=== PATIENT | male | born 1955 | race Caucasian/White ===

== ENCOUNTER 2022-12-02 08:16 | Outpatient (REF) | payer OTHER, MEDICARE, SELFPAY | END 2022-12-02 08:17 | disposition home or self-care (01) | LOC: HO.HOSX 08:16 | PROVIDERS: Visit Provider Orthopaedic Surgery | DX: M17.0 Bilateral primary osteoarthritis of knee (principal) | CPT/HCPCS: 20610; 73562; J3301 ==

== ENCOUNTER 2022-12-02 13:52 | Outpatient (AMB) | payer OTHER, MEDICARE, SELFPAY ==
--- NOTE | 2022-12-02 13:57 | MHC.OFFVIS ---
Intake Vital Signs 12/02/22 14:06 Height 5 ft 9 in Weight 210 lb BMI 31.0 Intake Visit Reasons: B[employer]ER-B/L knee pain/Cortisone injection? Intake Note: Bogdan is a 67 yr old male presents today for a new patient visit to re- establish care with Dr. Jefferson for bilateral knee pain. Patient describes his pains as sharp in nature. He has taken Tylenol which gives him only mild relief. He is not able to take anti-inflammatory medicines because he is on Eliquis. He has done physical therapy which aggravated his pains. He has had injections in the past which gave him fairly good relief. He would like to hold off on surgery for as long as possible. Allergies No Known Allergies Allergy (Verified 12/02/22 14:07) Medication List - Last Reconciled 12/02/22 by Brad Jefferson MD apixaban (Eliquis) 2.5 mg PO BID carvedilol 3.125 mg PO Q12H dulaglutide (Trulicity) 0.75 mg subcut QWEEK fluticasone furoate 27.5 mcg/actuation (Flonase Sensimist) 1 spray intranasal DAILY pregabalin (Lyrica) 25 mg PO DAILY rosuvastatin (Crestor) 5 mg PO DAILY sacubitril-valsartan 24-26 mg (Entresto) 1 tab PO BID tamsulosin (Flomax) 0.4 mg PO BEDTIME venlafaxine 12.5 mg PO DAILY zolpidem mg PO PFSH Social History (Updated 12/02/22 @ 14:08 by Neha Campbell [facility]) Current occupational status: retired and disabled Current occupation: rt hand Physical Exam Vital Signs: BMI result Body Mass Index 31.0 Const Other: Well-nourished well-developed very friendly male awake alert and oriented x3 in no acute distress Extrem Other: Bilateral lower extremity examination shows good capillary refill, no skin lesions noted, normal sensation light touch Bilateral knee examination shows minimal effusions, palpable crepitus with range of motion, pain with range of motion, range of motion from full extension to 120 degrees of flexion, no instability Office Procedures Joint Injection/Drain Joint Injection/Drain Primary Site: right knee Prep: site was prepped using aseptic technique Injected: 40 mg of, Kenalog and 1% plain lidocaine Procedure: The patient tolerated the procedure well Coding 87942 - Large joint Procedure code (CPT) selection complete Joint Injection/Drain Joint Injection/Drain Primary Site: left knee Prep: site was prepped using aseptic technique Injected: 40 mg of, Kenalog and 1% plain lidocaine Procedure: The patient tolerated the procedure well Coding 34621 - Large joint Procedure code (CPT) selection complete Results Reviewed Results Reviewed: 12/02/22 14:09 Lidocaine HCl 2 % MPF [Xylocaine 2 % MPF] 5 ml .ROUTE .STK-MED ONE Triamcinolone Acetonide [Kenalog-40] 40 mg .ROUTE .STK-MED ONE X-rays of the patient's bilateral knee show joint space narrowing, subchondral sclerosis, no acute bony abnormalities Assessment & Plan Assessment & Plan (1) Arthritis of left knee: Code(s): M17.12 - Unilateral primary osteoarthritis, left knee Plan: Mr. Curtis presents with bilateral knee pains due to degenerative joint disease. I had a lengthy discussion with the patient regarding the treatment options. The patient wishes to hold off on surgery for as long as possible. I agree with this plan. The risks and benefits of bilateral knee cortisone injections were discussed at length with the patient. The patient wished to proceed. He tolerated the injections well. He will continue with his home exercise program. He will follow up with me on an as-needed basis should his symptoms not plateau at an unacceptable level over the next few months. Feel free to call me at any time should questions regarding his orthopedic management arise. I spent 22 minutes in reviewing the patient's records and imaging studies, seeing the patient and documenting in the medical record. (2) Arthritis of right knee: Code(s): M17.11 - Unilateral primary osteoarthritis, right knee Orders: Orders XR knee LT 3V Today M25.562 - Pain in left knee AMB Joint Injection/Aspiration Today M17.12 - Unilateral primary osteoarthritis, left knee AMB Joint Injection/Aspiration Today M17.11 - Unilateral primary osteoarthritis, right knee XR knee RT 3V Today M25.561 - Pain in right knee Coding Level of Care Code Est Pt Level 2 (37290) Diagnoses Arthritis of left knee M17.12 Arthritis of right knee M17.11 CPT Codes Coding - 26073 Large joint: 00326 - Large joint ([id number]) Coding - 86930 Large joint: 61719 - Large joint ([id number])
[2022-12-02 14:06] VITALS: BMI 31.0
== END 2022-12-02 14:29 | disposition home or self-care (01) ==
PROVIDERS: PCP Internal Medicine; Visit Provider Orthopaedic Surgery
DX: M17.0 Bilateral primary osteoarthritis of knee (principal)
CPT/HCPCS: 20610; 99204; 99214

== ENCOUNTER 2023-04-05 13:50 | Outpatient (AMB) | payer OTHER, MEDICARE, SELFPAY ==
--- NOTE | 2023-04-05 13:51 | MHC.OFFVIS ---
Intake Vital Signs 04/05/23 13:52 Height 5 ft 9 in Weight 210 lb BMI 31.0 Intake Visit Reasons: OV-B/L knee pain Inj 12/02/22 Intake Note: Bogdan is a 67 year old male who presents for a follow up for bilateral knee pain. Patient reports his last injections on 12/02/2022 helped and would like to repeat the injections. He describes his pains as sharp in nature. He has tried Tylenol and anti-inflammatory medicines which gave him minimal relief. He denies any fevers or chills. He denies any locking or giving way. He would like to hold off on surgery for as long as possible. Allergies No Known Allergies Allergy (Verified 04/05/23 13:55) Medication List - Last Reconciled 04/06/23 by Brad Jefferson MD apixaban (Eliquis) 2.5 mg PO BID carvedilol 3.125 mg PO Q12H dulaglutide (Trulicity) 0.75 mg subcut QWEEK fluticasone furoate 27.5 mcg/actuation (Flonase Sensimist) 1 spray intranasal DAILY pregabalin (Lyrica) 25 mg PO DAILY rosuvastatin (Crestor) 5 mg PO DAILY sacubitril-valsartan 24-26 mg (Entresto) 1 tab PO BID tamsulosin (Flomax) 0.4 mg PO BEDTIME venlafaxine 12.5 mg PO DAILY zolpidem mg PO PFSH Social History (Updated 04/05/23 @ 13:55 by Misti Montemayor CMA) Patient Tobacco Use Status: Never used Tobacco Current occupational status: retired and disabled Current occupation: rt hand Physical Exam Vital Signs: BMI result Body Mass Index 31.0 Const Other: Well-nourished well-developed very friendly male awake alert and oriented x3 in no acute distress Extrem Other: Bilateral lower extremity examination shows good capillary refill, no skin lesions noted, normal sensation light touch Bilateral knee examination shows minimal effusions, palpable crepitus with range of motion, pain with range of motion, no instability Office Procedures Joint Injection/Drain Joint Injection/Drain Primary Site: left knee Prep: site was prepped using aseptic technique Injected: 40 mg of, DepoMedrol and 1% plain lidocaine Coding 61740 - Large joint Procedure code (CPT) selection complete Joint Injection/Drain Joint Injection/Drain Primary Site: right knee Prep: site was prepped using aseptic technique Injected: 40 mg of, DepoMedrol and 1% plain lidocaine Procedure: The patient tolerated the procedure well Coding 39122 - Large joint Procedure code (CPT) selection complete Results Reviewed Results Reviewed: X-rays of the patient's bilateral knee show joint space narrowing, subchondral sclerosis, no acute bony abnormalities Assessment & Plan Assessment & Plan (1) Arthritis of left knee: Code(s): M17.12 - Unilateral primary osteoarthritis, left knee (2) Arthritis of right knee: Code(s): M17.11 - Unilateral primary osteoarthritis, right knee Plan Mr. Curtis presents with bilateral knee pains due to degenerative joint disease. I had a lengthy discussion with the patient regarding the treatment options. The patient wishes to hold off on surgery for as long as possible. I agree with this plan. The risks and benefits of bilateral knee cortisone injections were discussed at length with the patient. The patient wished to proceed. He tolerated the injections well. He will continue with his home exercise program. He will follow up with me on an as-needed basis should his symptoms not plateau at an unacceptable level over the next few months. Feel free to call me at any time should questions regarding his orthopedic management arise. I spent 22 minutes in reviewing the patient's records and imaging studies, seeing the patient and documenting in the medical record. Orders: Orders AMB Joint Injection/Aspiration 04/05/23 M17.12 - Unilateral primary osteoarthritis, left knee AMB Joint Injection/Aspiration 04/05/23 M17.11 - Unilateral primary osteoarthritis, right knee Coding Level of Care Code Est Pt Level 2 (44920) Diagnoses Arthritis of left knee M17.12 Arthritis of right knee M17.11 CPT Codes Coding - 09393 Large joint: 62346 - Large joint ([id number]) Coding - 10744 Large joint: 71060 - Large joint ([id number])
[2023-04-05 13:52] VITALS: BMI 31.0
== END 2023-04-05 14:34 | disposition home or self-care (01) ==
PROVIDERS: PCP Internal Medicine; Visit Provider Orthopaedic Surgery
DX: M17.0 Bilateral primary osteoarthritis of knee (principal)
CPT/HCPCS: 20610; 99213

== ENCOUNTER → 2023-04-05 13:50 | Outpatient (BNVA) | payer OTHER, MEDICARE, SELFPAY | PROVIDERS: PCP Internal Medicine; Visit Provider Orthopaedic Surgery | DX: M17.0 Bilateral primary osteoarthritis of knee (principal) | CPT/HCPCS: 20610; J1020 ==

== ENCOUNTER 2023-08-04 14:16 | Outpatient (AMB) | payer OTHER, MEDICARE, SELFPAY ==
--- NOTE | 2023-08-04 14:20 | A.OFFVIS_ITS ---
Intake Visit Reasons: OV-B/L knee pain Inj 04/05/23 Intake Note: Bogdan 68 yr old male presents today with complaints of bilateral knee pains. He describes his pains as sharp in nature. He has tried physical therapy exercises which aggravated his pain. He has also tried Tylenol which gives him mild relief. He is not able to take anti-inflammatory medicines because he is on Eliquis. He has had cortisone injections in the past which gave him fairly good relief. He wishes to hold off on surgery if at all possible. Allergies No Known Allergies Allergy (Verified 08/04/23 14:21) Medication List - Last Reconciled 08/05/23 by Brad Jefferson MD apixaban (Eliquis) 2.5 mg PO BID carvedilol 3.125 mg PO Q12H dapagliflozin propanediol (Farxiga) 10 mg PO DAILY fluticasone furoate 27.5 mcg/actuation (Flonase Sensimist) 1 spray intranasal DAILY metformin ER 750 mg PO DAILY pentoxifylline ER 400 mg PO BID pregabalin (Lyrica) 25 mg PO DAILY rosuvastatin (Crestor) 5 mg PO DAILY sacubitril-valsartan 24-26 mg (Entresto) 1 tab PO BID tamsulosin (Flomax) 0.4 mg PO BEDTIME testosterone 81 mg topical QAM venlafaxine 12.5 mg PO DAILY zolpidem mg PO PFSH Social History (Updated 04/05/23 @ 13:55 by Misti Montemayor CMA) Patient Tobacco Use Status: Never used Tobacco Current occupational status: retired and disabled Current occupation: rt hand Physical Exam Const Other: Well-nourished well-developed very friendly male awake alert and oriented x3 in no acute distress Extrem Other: Bilateral lower extremity examination shows good capillary refill, no skin lesions noted, normal sensation light touch Bilateral knee examination shows minimal effusions, palpable crepitus with range of motion, pain with range of motion, no instability Office Procedures Joint Injection/Drain Joint Injection/Drain Primary Site: right knee Prep: site was prepped using aseptic technique Injected: 40 mg of, DepoMedrol and 1% plain lidocaine Procedure: The patient tolerated the procedure well Coding 23213 - Large joint Procedure code (CPT) selection complete Joint Injection/Drain Joint Injection/Drain Primary Site: left knee Prep: site was prepped using aseptic technique Injected: 40 mg of, DepoMedrol and 1% plain lidocaine Procedure: The patient tolerated the procedure well Coding 53379 - Large joint Procedure code (CPT) selection complete Results Reviewed Results Reviewed: X-rays of the patient's bilateral knee show joint space narrowing, subchondral sclerosis, no acute bony abnormalities Assessment & Plan Assessment & Plan (1) Arthritis of left knee: Code(s): M17.12 - Unilateral primary osteoarthritis, left knee Category: Medical (2) Arthritis of right knee: Code(s): M17.11 - Unilateral primary osteoarthritis, right knee Category: Medical Plan Mr. Curtis presents with bilateral knee pains due to degenerative joint disease. I had a lengthy discussion with the patient regarding the treatment options. He wishes to hold off on surgery for as long as possible. I agree with this plan. The risks and benefits of bilateral knee cortisone injections were discu ssed at length with the patient. The patient wished to proceed. He tolerated the injections well. He will continue with his home exercise program. He will follow up with me on an as-needed basis should his symptoms not plateau at an unacceptable level over the next few months. Feel free to call me at any time should questions regarding his orthopedic management arise. I spent 21 minutes in reviewing the patient's records and imaging studies, seeing the patient and documenting in the medical record. Orders: Orders AMB Joint Injection/Aspiration 08/04/23 M17.12 - Unilateral primary osteoarthritis, left knee AMB Joint Injection/Aspiration 08/04/23 M17.11 - Unilateral primary osteoarthritis, right knee Coding Level of Care Code Est Pt Level 3 (73257) Diagnoses Arthritis of left knee M17.12 Arthritis of right knee M17.11 CPT Codes Coding - 35307 Large joint: 09453 - Large joint ([id number]) Coding - 42132 Large joint: 90835 - Large joint ([id number])
== END 2023-08-04 14:48 | disposition home or self-care (01) ==
PROVIDERS: PCP Internal Medicine; Visit Provider Orthopaedic Surgery
DX: M17.0 Bilateral primary osteoarthritis of knee (principal)
CPT/HCPCS: 20610; 99213

== ENCOUNTER → 2023-08-04 14:16 | Outpatient (BNVA) | payer OTHER, MEDICARE, SELFPAY | PROVIDERS: PCP Internal Medicine; Visit Provider Orthopaedic Surgery | DX: M17.0 Bilateral primary osteoarthritis of knee (principal) | CPT/HCPCS: 20610; J1010 ==

== ENCOUNTER 2023-12-14 13:20 | Outpatient (AMB) | payer OTHER, MEDICARE, SELFPAY ==
[2023-12-14 13:23] VITALS: BMI 31.0
--- NOTE | 2023-12-14 13:23 | A.OFFVIS_ITS ---
Vital Signs 12/14/23 13:23 Height 5 ft 9 in Weight 210 lb BMI 31.0 Intake Visit Reasons: Bilateral knee pains Intake Note: Bogdan is a 68 year old male who presents with complaints of bilateral knee pains. The patient describes his pains as sharp in nature. His pains have gotten worse over the last few months in spite of continued non operative treatments. He has had cortisone injections which gave him fairly good relief. He has also done physical therapy exercises which aggravated his pain. He has tried Tylenol which gives him minimal relief. He is not able to take anti- inflammatory medicines because he is on Eliquis. He wishes to hold off on surgery for as long as possible. Allergies No Known Allergies Allergy (Verified 12/14/23 13:27) Medication List - Last Reconciled 12/14/23 by Brad Jefferson MD apixaban (Eliquis) 2.5 mg PO BID carvedilol 3.125 mg PO Q12H dapagliflozin propanediol (Farxiga) 10 mg PO DAILY fluticasone furoate 27.5 mcg/actuation (Flonase Sensimist) 1 spray intranasal DAILY metformin ER 750 mg PO DAILY pentoxifylline ER 400 mg PO BID pregabalin (Lyrica) 25 mg PO DAILY rosuvastatin (Crestor) 5 mg PO DAILY sacubitril-valsartan 24-26 mg (Entresto) 1 tab PO BID semaglutide (Ozempic) 0.25 mg subcut QWEEK tamsulosin (Flomax) 0.4 mg PO BEDTIME testosterone 81 mg topical QAM venlafaxine 12.5 mg PO DAILY zolpidem mg PO PFSH Social History (Updated 04/05/23 @ 13:55 by Misti Montemayor CMA) Patient Tobacco Use Status: Never used Tobacco Current occupational status: retired and disabled Current occupation: rt hand Physical Exam Vital Signs: BMI result Body Mass Index 31.0 Const Other: Well-nourished well-developed very friendly male awake alert and oriented x3 in no acute distress Extrem Other: Bilateral lower extremity examination shows good capillary refill, no skin lesions noted, normal sensation light touch Bilateral knee examination shows minimal effusions, palpable crepitus with range of motion, pain with range of motion, no instability Office Procedures Joint Injection/Aspiration Joint Injection/Aspiration Primary Site: left knee Prep: site was prepped using aseptic technique Injected: 40 mg of, DepoMedrol and 1% plain lidocaine Procedure: The patient tolerated the procedure well Coding 43571 - Large joint Procedure code (CPT) selection complete Joint Injection/Aspiration Joint Injection/Aspiration Primary Site: right knee Prep: site was prepped using aseptic technique Injected: 40 mg of, DepoMedrol and 1% plain lidocaine Procedure: The patient tolerated the procedure well Coding 76990 - Large joint Procedure code (CPT) selection complete Results Reviewed Results Reviewed: X-rays of the patient's bilateral knees taken previously show joint space narrowing, subchondral sclerosis, no acute bony abnormalities Assessment & Plan Assessment & Plan (1) Arthritis of left knee: Code(s): M17.12 - Unilateral primary osteoarthritis, left knee Category: Medical (2) Arthritis of right knee: Code(s): M17.11 - Unilateral primary osteoarthritis, right knee Category: Medical Plan Mr. Curtis presents with bilateral knee pains due to degenerative joint disease. I had a lengthy discussion with the patient regarding the treatment options. The risks and benefits of bilateral knee cortisone injections were discussed at length with the patient. The patient wished to proceed. He tolerated the injections well. He will continue with his home exercise program. He will contact me prior to his follow-up appointment in 3 months should any questions or concerns arise. Feel free to call me at any time should questions regarding his orthopedic management arise. I spent 22 minutes in reviewing the patient's records and imaging studies, seeing the patient and documenting in the medical record. Orders: Orders AMB Joint Injection/Aspiration 12/14/23 M17.11 - Unilateral primary osteoarthritis, right knee AMB Joint Injection/Aspiration 12/14/23 M17.12 - Unilateral primary osteoarthritis, left knee Coding Level of Care Code Est Pt Level 3 (41948) Complex EM visit Add On G2211 Diagnoses Arthritis of left knee M17.12 Arthritis of right knee M17.11 CPT Codes Coding - 62259 Large joint: 49190 - Large joint ([id number]) Coding - 39849 Large joint: 15747 - Large joint ([id number])
== END 2023-12-14 13:50 | disposition home or self-care (01) ==
PROVIDERS: PCP Internal Medicine; Visit Provider Orthopaedic Surgery
DX: M17.0 Bilateral primary osteoarthritis of knee (principal)
CPT/HCPCS: 20610; 99213

== ENCOUNTER → 2023-12-14 13:20 | Outpatient (BNVA) | payer OTHER, MEDICARE, SELFPAY | PROVIDERS: PCP Internal Medicine; Visit Provider Orthopaedic Surgery | DX: M17.0 Bilateral primary osteoarthritis of knee (principal) | CPT/HCPCS: 20610; J1010; J2003 ==

== ENCOUNTER 2024-04-24 12:52 | Outpatient (AMB) | payer OTHER, MEDICARE, SELFPAY ==
[2024-04-24 12:54] VITALS: BMI 31.0
--- NOTE | 2024-04-24 12:54 | MHC.OFFVIS ---
Vital Signs 04/24/24 12:54 Height 5 ft 9 in Weight 210 lb BMI 31.0 Intake Visit Reasons: right shoulder pain and right knee pain Intake Note: Bogdan is a 68 year old male who presents with complaints of right shoulder pain and right knee pain. He describes his pains as sharp in nature. His pains have gotten worse over the last few months in spite of continued non operative treatments. He has taken Tylenol which gives him only mild relief. He is not able to take anti-inflammatory medicines because he is on Eliquis. He has done physical therapy exercises which aggravated his pain. He wishes to hold off on surgery if at all possible. Allergies No Known Allergies Allergy (Verified 04/24/24 12:55) Medication List - Last Reconciled 04/25/24 by Brad Jefferson MD apixaban (Eliquis) 2.5 mg PO BID carvedilol 3.125 mg PO Q12H dapagliflozin propanediol (Farxiga) 10 mg PO DAILY fluticasone furoate 27.5 mcg/actuation (Flonase Sensimist) 1 spray intranasal DAILY metformin ER 750 mg PO DAILY pentoxifylline ER 400 mg PO BID pregabalin (Lyrica) 25 mg PO DAILY rosuvastatin (Crestor) 5 mg PO DAILY sacubitril-valsartan 24-26 mg (Entresto) 1 tab PO BID semaglutide (Ozempic) 0.25 mg subcut QWEEK tamsulosin (Flomax) 0.4 mg PO BEDTIME testosterone 81 mg topical QAM venlafaxine 12.5 mg PO DAILY zolpidem mg PO PFSH Social History (Updated 04/05/23 @ 13:55 by Misti Montemayor CMA) Patient Tobacco Use Status: Never used Tobacco Current occupational status: retired and disabled Current occupation: rt hand Physical Exam Vital Signs: BMI result Body Mass Index 31.0 Const Other: Well-nourished well-developed very friendly male awake alert and oriented x3 in no acute distress Extrem Other: right shoulder examination shows slightly decreased range of motion when compared to his left shoulder, positive impingement signs, no instability, 4+ out of 5 strength with supraspinatus testing Right knee examination shows a minimal effusion, palpable crepitus with range of motion, pain with range of motion, no instabil Office Procedures AMB Joint Injection/Aspiration Joint Injection/Aspiration Primary Site: right knee Prep: site was prepped using aseptic technique Injected: 40 mg of, DepoMedrol and 1% plain lidocaine Procedure: The patient tolerated the procedure well Coding 59259 - Large joint Procedure code (CPT) selection complete AMB Joint Injection/Aspiration Joint Injection/Aspiration Primary Site: right shoulder Prep: site was prepped using aseptic technique Injected: 40 mg of, DepoMedrol and 1% plain lidocaine Procedure: The patient tolerated the procedure well Coding 94707 - Large joint Procedure code (CPT) selection complete Assessment & Plan Assessment & Plan (1) Impingement of right shoulder: Code(s): M25.811 - Other specified joint disorders, right shoulder Category: Medical (2) Arthritis of right knee: Code(s): M17.11 - Unilateral primary osteoarthritis, right knee Category: Medical Plan Mr. Curtis presents with right shoulder pain due to impingement syndrome as well as right knee pain due to degenerative joint disease. I had a lengthy discussion with the patient regarding the treatment options. the risks and benefits of a right shoulder cortisone injection as well as a right knee cortisone injection were discussed at length with the patient. The patient wished to proceed. Tolerated the injections well. He will continue with his home exercise program. He will contact me prior to his follow-up appointment in 3 months should any questions or concerns arise. Feel free to call me at any time should questions regarding his orthopedic management arise. I spent 21 minutes in reviewing the patient's records and imaging studies, seeing the patient and documenting in the medical record. Orders: Orders AMB Joint Injection/Aspiration 04/24/24 M25.811 - Other specified joint disorders, right shoulder AMB Joint Injection/Aspiration 04/24/24 M17.11 - Unilateral primary osteoarthritis, right knee Coding Level of Care Code Est Pt Level 3 (20387) Complex EM visit Add On G2211 Diagnoses Impingement of right shoulder M25.811 Arthritis of right knee M17.11 CPT Codes Coding - 93903 Large joint: 71604 - Large joint ([id number]) Coding - 73066 Large joint: 27990 - Large joint ([id number])
--- OUTSIDE RECORDS SUMMARY | 2024-04-24 15:39 | XMS_ITS | Data Portability ---
Author Organization [place] [facility] Reyes AONE Gowen Address [address] [place] [address] Care Team Providers Care Steel Pickler Name Role Phone MERLE LORENZOEMILY Primary Care Provider [phone] Assessment Encounter Date Assessment Date Assessment LastModified by Organization Details LastModified Time 11/15/2022 11/15/2022 67-year-old male with osteoarthritis of bilateral knees. His symptoms are well controlled at present moment. He is requesting repeat cortisone injections today. I have described to him that I would only recommend repeat cortisone injections if and when he is experiencing arthritis symptoms but that there is no preventative value of cortisone injections. I sense that he is frustrated as this is a different approach than he was accustomed to in the past. I have assured him that we will make a time for him on the office schedule in the event that he has recurrence of arthritis pain. [email or web address] Not available 11/15/2022 14:07:06 Plan of Treatment Reminders Order Date Submit Date Provider Last Modified By Organization Details Last Modified Time Details Appointments None recorded. Lab None recorded. Referral None recorded. Procedures None recorded. Surgeries None recorded. Imaging XR, knee, 1 or 2 view - Left Knee Pain 2022 023 [email or web address] [facility], [address], [place], [address], 15:29:50 XR, knee, 1 or 2 view - Right Knee Pain 2022 023 [email or web address] [facility], [address], [place], [address], 3 15:29:50 XR, knee, weightbeari ng - Bilateral Knee Pain 2022 023 [email or web address] [facility], [address], [place] [address], [place], [address], 3 15:29:50 Medication Orders Marcaine (PF) 0.5 % (5 mg/mL) injection solution 2022 023 [email or web address] [id number], [address] [place], [address], 3 15:29:50 lidocaine (PF) 100 mg/5 mL (2 %) injection syringe 2022 023 [email or web address] [id number], [address] [place], [address], 3 15:29:50 Kenalog 40 mg/mL suspension for injection 2022 023 [email or web address] [id number], [address] [place], [address], 3 15:29:50 Marcaine (PF) 0.5 % (5 mg/mL) injection solution 2022 023 [email or web address] [id number], [address] [place] [address], [address], 3 15:29:50 lidocaine (PF) 100 mg/5 mL (2 %) injection syringe 2022 023 [email or web address] [id number], [address] [place] [address], [address], 3 15:29:50 Kenalog 40 mg/mL suspension for injection 2022 023 [email or web address] [id number], [address] [place], [address], 3 15:29:50 Patient TargetsNo targets recorded. Patient Instructions Encounter Date Encounter Id Patient Instructions Last Modified By Organization Details Last Modified Time 08/13/2022 [id number] AP, lateral, Dawson, and patellar view radiographs of the right knee taken today demonstrate right knee degenerative joint disease with mild to moderate joint space narrowing most significant in the medial compartment. AP, lateral, Dawson, and patellar radiographs views of the left knee taken today demonstrate left knee degenerative joint disease with mild to moderate joint space narrowing. [email or web address] Not available 08/13/2022 13:49:00 Reason for Referral None Reported. Problems Name Problem SNOMED Code Status Onset Date Resolution Date Notes Provider Name and Address Organization Details Recorded Time Osteoarthri tis of right knee joint 4149192000273 00 Active 2022 Bowen Segovia MD [address], [place], [address], [place] [facility] 3 13:48:22 Osteoarthri tis of left knee joint 2630796191941 09 Active 2022 Bowen Segovia MD [address], [place], [address], [place] [facility] 3 13:48:26 Problem Notes None recorded. Procedures Surgical History Date Name Laterality Status Provider Name and Address Organization Details Recorded Time 3 MJG Knee Injection w/o US completed Bowen Segovia MD [address], [place], [address], [place] [facility] 08/13/2022 13:49:26 Imaging Results None recorded. Procedure Notes None recorded. Medical Equipment None Reported. 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 2022 active Not Available Not Available Not Avai lable tamsulosin 0.4 mg capsule active Not Available Not Available Not Available zolpidem 10 mg tablet TAKE 1 TABLET BY MOUTH EVERY DAY AT BEDTIME NEEDED active Not Available Not Available No t Available ketoconazol e 2 % topical cream APPLY TO AFFECTED AREA TWICE A DAY active Not Available Not Available No t Available metformin ER 500 mg tablet,exte nded release 24 hr TAKE 1 TABLET BY MOUTH ONCE DAILY WITH EVENING MEAL active Not Available Not Available No t Available Vitamin D3 25 mcg (1,000 unit) tablet TAKE 1 TABLET BY MOUTH EVERY DAY FOR 90 DAYS active Not Available Not Available No t Available metformin ER 750 mg tablet,exte nded release 24 hr TAKE 1 TABLET BY MOUTH EVERY DAY FOR 90 DAYS active Not Available Not Available No t Available rosuvastati n 40 mg tablet active Not Available Not Available Not Available Marcaine (PF) 0.5 % (5 mg/mL) injection solution Take 4 mL by injection route. 2022 active Not Available Not Available Not Avai lable pregabalin 100 mg capsule active Not Available Not Available Not Available testosteron e 20.25 mg/1.25 gram per pump act.(1.62 %) transdermal gel APPLY 4 PUMPS TO AFFECTED ON SKIN IN THE MORNING ONCE A DAY active Not Available Not Available No t Available lidocaine (PF) 100 mg/5 mL (2 %) injection syringe Take 4 mL by injection route. 2022 active Not Available Not Available Not Avai lable Eliquis 5 mg tablet TAKE 1 TABLET BY MOUTH TWICE A DAY active Not Available Not Available No t Available Farxiga 10 mg tablet TAKE 1 TABLET BY MOUTH EVERY DAY active Not Available Not Available No t Available Trulicity 1.5 mg/0.5 mL subcutaneou s pen injector INJECT 1 PEN (0.5 ML) SUBCUTANE OUSLY ONCE A WEEK 90 DAYS active Not Available Not Available No t Available Trulicity 0.75 mg/0.5 mL subcutaneou s pen injector INSERT 1 PEN (0.75MG) SUBCUTANE OUSLY ONCE A WEEK DIRECTED active Not Available Not Available No t Available Entresto 97 mg-103 mg tablet TAKE 1 TABLET BY MOUTH TWICE A DAY active Not Available Not Available No t Available Paxlovid 300 mg (150 mg x 2)-100 mg tablets in a dose pack TAKE 3 TABLETS BY MOUTH FROM THERAPY PACK TWICE A DAY FOR 5 DAYS 11/15 completed Not Available Not Available Not Available Vitals Date Recorded Body weight Body mass index (BMI) Body height Provider Name and Address Organization Details Last Updated DateTime 08/13/2022 93827.77 g 32.5 kg/m2 172.72 cm Hayley Ceja [place] [facility] 08/13/2022 13:35:07 Date Recorded Body height Body mass index (BMI) Body weight Provider Name and Address Organization Details Last Updated DateTime 11/15/2022 172.72 cm 32.5 kg/m2 12102.77 g Corazon Mera [facility] 11/15/2022 13:44:59 Social History None recorded. Functional Status None recorded. Mental Status None recorded. Family History Relationship Description Onset Age of this Age Resolved Age Notes LastModified by Organization Details LastModified Time Father Family history of malignant neoplasm [email or web address] Not available 11/15 13:45:38 Medical History Condition Response Coronary Artery Disease N Gout N Hyperthyroidism N MRSA N Blood Transfusion N Emphysema N Hypothyroidism N COPD N Depression N Pacemaker N Vascular Disease N Gastrointestinal Disease N Anxiety Disorder N Autoimmune disease N Arthritis N Cancer N Stroke Y High Cholesterol N Neurologic Disorder N Liver Disease N Organ Transplant N Arrhythmia N Rheumatoid Arthritis N Fibromyalgia N Kidney Disease N Allergies/Hayfever N Adverse Reaction to Anesthesia N Thyroid Problems N Anemia N Brain Injury N Heart Attack (MN) N Osteopenia N Diabetes Y Bleeding Disorder N Seizures/Epilepsy N AIDS/HIV N Congestive Heart Failure (CHF) N Asthma N Amputation N Reflux/GERD N Sleep Apnea N Hepatitis N Aneurysm N Heart Disease Y Pulmonary Embolism N Hypertension Y Osteoporosis N Past Encounters Encounter ID Performer Location Encounter Start Date Encounter Closed Date Diagnosis/Indication Diagnosis SNOMED-CT Code Diagnosis ICD10 Code Diagnosis Note [id number] [facility] [address] [address] 08/13/2022 13:21:02 08/13/2022 13:48:26 Pain of bilateral knee joints 7571763255 34751 M25.561 M25.562 Osteoarthr itis of right knee joint 7575847377 48622 M17.11 Osteoarthr itis of left knee joint 2756803908 64904 M17.12 [id number] MD [facility] [address] [place] [address] 11/15/2022 13:37:30 11/15/2022 14:35:31 Osteoarthritis of left knee joint 7140243722 61766 M17.12 Osteoarthr itis of right knee joint 6803915576 04617 M17.11 Health Concerns Section Related Observation LastModified by Organization Detai ls LastModified Time None Recorded Concern Status LastModified by Organization Details LastModified Time None Recorded Advance Directives Directive None Recorded Payers Encounter Date Sequence Insurance Name Policy Number Policy Singh Covered Member ID Singh Member ID Guarantor Name 08/13/2022 1 [facility] [id number] Bogadn Curtis [id number] Bogdan Curtis 08/13/2022 2 MEDICARE B-[place]: [facility] [employer] [facility] Bogdan Curtis [id number] Bogdan Curtis 11/15/2022 1 [facility] [id number] Bogdan Curtis [id number] Bogdan Curtis 11/15/2022 2 [place] [employer] [facility] Bogdan Curtis [id number] Bogdan Curtis Notes Date Note Type Note Provider Name and Address Organization Details Recorded Time 08/13/2022 text/html HPI: Patient is here today with complaints of bilateral knee pain. ? ? The patient is experiencing bilateral knee pain, which is moderate in intensity, and has recently worsened. The right knee is equal to the left knee. The pain limits some activities of daily living. Walking tolerance is reduced. Pain and restriction of function are moderate at this time. He has been undergoing corticosteroid injections with Dr. Jefferson. The last one is in April. It brought about 3 months of relief. Review of systems is negative for other rapidly progressive neurological disorder, chest pain, shortness of breath, fevers, chills, or any signs of active or persistent local or systemic infection. Physical Exam??: Patient is well nourished, well-developed, in no acute distress, with appropriate mood and affect. The patient is oriented to time, place, and person. Bilateral knee motion is reduced and does cause significant pain. The right knee moves from 0-130 degrees and the left knee moves from 0-130 degrees. The knees are stable within those [id number]. The alignment of the right knee is {{varus valgus neutr al*}}. The alignment of the left knee is {{varus valgus neutr al*}}. Knee muscle strength is normal bilaterally with the skin intact. Pedal pulses are palpable. Hip examination, including flexion and internal rotation, was negative in that groin pain was not produced. Assessment/Plan??: The patient has mild to moderate bilateral knee arthritis. An extensive discussion was conducted on the natural history of the disease and the variety of surgical and non-surgical options available to the patient including, but not limited to non-steroidal anti-inflammatory medications, steroid injections, viscosupplementation , physical therapy, maintenance of ideal body weight, and reduction of activity. Plan for bilateral knee corticosteroid injections today. He can follow-up with JANIE Martínez in about 3 months. Hayley singleton, [place] [facility] 08/13/2022 13:57:49 11/15/2022 text/html 67-year-old male presents for routine surveillance of bilateral knee secondary to known osteoarthritis. He reports that his most recent cortisone injections were effective at giving him excellent relief of his pain. He is currently still pain-free and his overall level of function specific to the knees is very high. He does recognize some weakness of the knees. He is offered a physical therapy order but declines. JANIE MARTÍNEZ-Cherrie [address] [place] [address], [phone], [place] [facility] 11/15/2022 14:07:44
--- OUTSIDE RECORDS SUMMARY | 2024-04-24 15:39 | XMS_ITS ---
Author Name [facility] Organization Unknown History of Medication Use Medication Directions Dispensed Refills Start Date End Date Stat tamsulosin 0.4 mg capsule active rosuvastatin 40 mg tablet active Vitamin D3 25 mcg (1,000 unit) tablet TAKE 1 TABLET BY MOUTH EVERY DAY FOR 90 DAYS active Trulicity 1.5 mg/0.5 mL subcutaneous pen injector INJECT 1 PEN (0.5 ML) SUBCUTANEOUSLY ONCE A WEEK 90 DAYS active Farxiga 10 mg tablet TAKE 1 TABLET BY MOUTH EVERY DAY active testosterone 20.25 mg/1.25 gram per pump act.(1.62 %) transdermal gel APPLY 4 PUMPS TO AFFECTED ON SKIN IN THE MORNING ONCE A DAY active lidocaine (PF) 100 mg/5 mL (2 %) injection syringe Take 4 mL by injection route. 08/13/2022 active Trulicity 0.75 mg/0.5 mL subcutaneous pen injector INSERT 1 PEN (0.75MG) SUBCUTANEOUSLY ONCE A WEEK DIRECTED active zolpidem 10 mg tablet TAKE 1 TABLET BY MOUTH EVERY DAY AT BEDTIME NEEDED active Problems Problem Status Onset Date Problem Type Date of Resoluti on Source Osteoarthritis of right knee joint active 2022-08-13 ProblemAct [facility] Osteoarthritis of left knee joint active 2022-08-13 ProblemAct [facility]
--- OUTSIDE RECORDS SUMMARY | 2024-04-24 15:40 | XMS_ITS ---
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 Name Role Phone Shana Gould Primary Care Provider [phone] Edwige Chilel Unavailable [phone] Allergies No Known Allergies REASON FOR VISIT New Refill Request Medications Medication SIG (Take, Route, Fr equency, Duration) Notes Start Date End Date Status Pregabalin 100 MG TAKE 1 CAPSULE BY MO UT TWICE DAILY Orally twice a day for 14 days 04/23/2024 05/07/2024 Active Encounters Encounter Location Date Provider Diagnosis Shana Gould MD [address] [place] [phone] 04/20/2024 Edwige Chilel Plan Of Treatment Medication Medication Name Sig Start Date Stop Date Notes Pregabalin 100 MG TAKE 1 CAPSULE BY MO UT TWICE DAILY Orally twice a day for 14 days 04/23/2024 05/07/2024 Next Appt Details Provider Name:Shana Gould , 08/08/2024 01:00:00 PM, [address] [place] [address], [phone], Provider Name:Shana Gould , 10/18/2024 01:00:00 PM, [address] [place] [address], [phone], Progress Notes * Bogdan LIZAMA ADOB: (68 yo M)Acc No.[id number]:04/20/2024 Patient:?Bogdan LIZAMA :1955???Age:68 Y???Sex:Male Address:[address] [place] [address], [facility] [place], [address] * Refills? Refill Pregabalin Capsule, 100 MG, Orally, 28, TAKE 1 CAPSULE BY MOUTH TWICE DAILY, twice a day, 14 days, Refills=0 Subjective: * Chief Complaints: * ???New Refill Request * Medical History:? * Surgical History:? * Hospitalization/Major Diagno stic Procedure:? * Medications:? * Allergies:?N.K.D.A.no[Allerg ies Verified] Objective: * Vitals:? Past Vitals:* 04/09/2024 Temp:95.2F, HR:94/min, BP:Si tting Right Arm: 116/66mm Hg, Wt:202lbs, BMI:28.98Index, Ht:70in, Oxygen sat %:96% * 12/21/2023 Temp:96.3F, BP:Sitting Right Arm: 118/70mm Hg, Wt:206.2lbs, BMI:29.58Index, Ht:70in * 10/11/2023 Temp:95.9F, HR:75/min, BP:Si tting Right Arm: 122/70mm Hg, Wt:213.8lbs, BMI:30.67Index, Ht:70in, Oxygen sat %:97% * Physical Examination:? Assessment: Plan: * Treatment: * Procedure Codes:? * true * Date:? Generated for Gita nixon/[place]/Rod on:?04/24/2024 03:39 PM EST
--- OUTSIDE RECORDS SUMMARY | 2024-04-24 15:40 | XMS_ITS ---
Author Organization [facility] Address [address] [place] [phone] Care Team Providers Care Client Service Consultant Name Role Phone Shana Gould Primary Care Provider Edwige Chilel Unavailable [phone] REASON FOR VISIT need refill for Imodium 2 Mg Capsule for [facility] Medications Medication SIG (Take, Route, Fr equency, Duration) Notes Start Date End Date Status Imodium A-D 2 MG 1 tablet as needed O rally two times a day for 14 days Active Encounters Encounter Location Date Provider Diagnosis Shana Gould MD [address] [place] [phone] 04/20/2024 Edwige Chilel Plan Of Treatment Medication Medication Name Sig Start Date Stop Date Notes Imodium A-D 2 MG 1 tablet as needed O rally two times a day for 14 days Next Appt Details Provider Name:Shana Gould , 08/08/2024 01:00:00 PM, [address] [place] [address], [phone], Provider Name:Shana Gould , 10/18/2024 01:00:00 PM, [address] [place] [address], [phone], Progress Notes * Bogdan LIZAMA ADOB: (68 yo M)Acc No.[id number]:04/20/2024 Patient:?Bogdan LIZAMA :1955???Age:68 Y???Sex:Male Address:[address] [place] [address], [address] * Refills? Refill Imodium A-D Tablet, 2 MG, Orally, 28 Tablet, 1 tablet as needed, two times a day, 14 days, Refills=0 Subjective: * Chief Complaints: * ???need refill for Imodium 2 Mg Capsule for [facility] * Medical History:? * Surgical History:? * Hospitalization/Major Diagno stic Procedure:? * Medications:? * Allergies:?no[Allergies Veri fied] Objective: * Vitals:? Past Vitals:* 04/09/2024 Temp:95.2F, [...] * Date:? Generated for Gita nixon/[place]/Rod on:?04/24/2024 03:40 PM EST
--- OUTSIDE RECORDS SUMMARY | 2024-04-24 15:40 | XMS_ITS | Clinical Summary ---
Author Organization [facility] Address [address] [place] [address] Care Team Providers Care Vp Human Resources Name Role Phone Shana Gould MD Primary Care Provider [phone] Allergies No known active allergies Medications Medication Sig Dispensed Refills Start Date End Date Status tamsulosin (FLOMAX) 0.4 MG CAPS Take 0.4 mg by mouth daily. 0 Active isosorbide mononitrate (IMDUR) 30 MG 24 hr tablet Take 30 mg by mouth daily. 0 Active zolpidem (AMBIEN) 5 MG tablet Take 5 mg by mouth every night at bedtime as needed for sleep. 0 Active amiodarone (PACERONE) 200 MG tablet Take 200 mg by mouth daily. 0 Active venlafaxine (EFFEXOR) 25 MG tablet Take 25 mg by mouth 2 (two) times a day. 0 Active Testosterone (ANDROGEL) 20.25 MG/1.25GM (1.62%) GEL Place onto the skin. 0 Active carvedilol (COREG) 12.5 MG tablet Take 12.5 mg by mouth 2 (two) times a day with meals. 0 Active spironolactone (ALDACTONE) 100 MG tablet Take 100 mg by mouth daily. 0 Active fluticasone (FLONASE) 50 MCG/ACT nasal spray spray/apply 1 spray in each nostril daily. 0 Active atorvastatin (LIPITOR) tablet 20 mg Take 20 mg by mouth daily. 0 Active glimepiride (AMARYL) tablet 2 mg Take 2 mg by mouth every morning before breakfast. 0 Active furosemide (LASIX) 20 MG tablet Take 20 mg by mouth 2 (two) times a day. 0 Active pregabalin (LYRICA) capsule 100 mg Take 100 mg by mouth 2 (two) times a day. 0 Active clopidogrel (PLAVIX) 75 MG tablet Take 75 mg by mouth daily. 0 Active SITagliptin-MetFORMIN HCl (JANUMET PO) Take by mouth. 0 Acti ve METFORMIN HCL PO Take by mouth. 0 Acti ve Sacubitril-Valsartan (ENTRESTO PO) Take by mouth. 0 Active gabapentin (NEURONTIN) 300 MG capsule Take 300 mg by mouth 3 (three) times a day. 5 05/17/2017 Active pentoxifylline (TRENTAL) 400 MG CR tablet TAKE 1 TABLET BY MOUTH TWICE A DAY 1 05/03/2017 Active ENTRESTO 97-103 MG TABS per tablet TAKE 1 TABLET BY MOUTH TWICE A DAY 3 06/01/2017 Active apixaban (ELIQUIS) 5 MG TABS tablet Take 5 mg by mouth. 0 Active aspirin 81 MG chewable tablet Chew 81 mg by mouth daily. 3 10/15/2018 Active INVOKANA 300 MG TABS TAKE 1 TABLET BEFORE THE FIRST MEAL OF THE DAY ONCE A DAY ORALLY 30 DAY(S) 0 06/03/2019 Active FARXIGA 10 MG TABS Take 1 tablet by mouth daily. 0 02/25/2020 Active rosuvastatin (CRESTOR) tablet 40 mg Take 40 mg by mouth daily. 0 09/22/2020 Active testosterone (ANDROGEL) gel pump 1.62% (20.25 mg testosterone/1.25 g gel) 0 04/13/2021 Active carvedilol (COREG) 6.25 MG tablet 0 03/12/2021 Active venlafaxine (EFFEXOR-XR) 150 MG 24 hr capsule 0 01/28/2021 Active zolpidem (AMBIEN) 10 MG tablet TAKE 1 TABLET BY MOUTH AT BEDTIME NEEDED 0 03/27/2021 Active Active Problems Problem Noted Date Diagnosed Date Primary osteoarthritis of both knees 06/27/2019 Coracoid impingement of right shoulder 8 Allergic arthritis of left knee 11/15/2017 Arthralgia of left knee 10/06/2016 Arthralgia of left shoulder region 10/06/2016 Family History Medical History Relation Name Comments Cancer Mother Relation Name Status Comments Mother Social History Tobacco Use Types Packs/Day Years Used Date Smoking Tobacco: Never Assessed Sex and Gender Information Value Date Recorded Sex Assigned at Not on file Gender Identity Not on file Sexual Orientation Not on file Job Start Date Occupation Industry Not on file Not on file Not on file Last Filed Vital Signs Vital Sign Reading Time Taken Comments Blood Pressure - - Pulse - - Temperature - - Respiratory Rate - - Oxygen Saturation - - Inhaled Oxygen Concentration - - Weight 108.9 kg (240 lb) 04/14/2021 3:41 PM EST Height 177.8 cm (5' 10 ) 04/14/2021 3:41 PM EST Body Mass Index 34.44 04/14/2021 3:41 PM EST Plan of Treatment Health Maintenance Due Date Last Done Comments Hepatitis C Screening 1955 COVID-19 Vaccine (#1) 1955 Pneumococcal Vaccine (1 of 2 - PCV) 06/05/1961 Depression Screening 1967 BMI Counseling 06/05/1973 Preventative Health Evaluation 06/05/1973 DTap / Tdap / Td (1 - Tdap) 06/05/1974 Colon Cancer Screening (Colonoscopy) 06/05/2000 Shingrix-Zoster Vaccine (1 o f 2) 06/05/2005 Fall Risk Assessment 06/05/2020 Influenza Vaccine (#1) 2023 8, 12/04/2015 RSV Adult > 60+ Yrs or (1 - 1-dose 75+ series) 06/05/2030 Hepatitis B Vaccines Aged Out No long er eligible based on patient's age to complete this topic RSV Ped < 20 months Aged Out No longe r eligible based on patient's age to complete this topic Insurance Payer Benefit Plan / Group Subscriber ID Effective Dates Phone Address [facility] [id number] 2019-Pr esent [address] [place] [address] [place] [id number] 2011-Pre sent [phone] [employer] [address] [facility] [place] [address] Medicare Care Teams Vp Human Resources Relationship Specialty Start Date End Date Shana Gould MD [address] [address] PCP - General Internal Medicine 09/24/16
--- OUTSIDE RECORDS SUMMARY | 2024-04-24 15:40 | XMS_ITS | Clinical Summary ---
Author Organization [facility] [place] [address] Care Team Providers Care Property Insurance Inspector Name Role Phone Shana Lorenzo MD Primary Care Provider [phone] Surgical History Surgery Date Site/Laterality Comments HERNIA REPAIR PROCEDURE:HERNIA REPAIR OTHER SURGICAL HISTORY PROCEDURE:cardiac stents Medical History Medical History Date Comments Diabetes mellitus (CMS/HCC) DX:D iabetes mellitus (HCC) Hypertension DX:Hypertension Heart disease DX:Heart disease Peripheral vascular disease (CMS/HCC) DX:Peripheral vascular disease (HCC) Family History Medical History Relation Name Comments Cancer Mother Relation Name Status Comments Mother Social History Tobacco Use Types Packs/Day Years Used Date Smoking Tobacco: Never Assessed Sex and Gender Information Value Date Recorded Sex Assigned at Not on file Legal Sex Male 11:57 PM EST Gender Identity Not on file Sexual Orientation Not on file Obstetrics History Plan of Treatment Health Maintenance Due Date Last Done Comments DTaP,Tdap,and Td Vaccines (1 - Tdap) 06/05/1974 Pneumococcal Vaccine: 50+ Ye ars (1 of 1 - PCV) 06/05/2005 Zoster Vaccines (1 of 2) 06/05/2005 Cholesterol Screening (Lipid Panel) 02/04/2022 Colorectal Cancer Screening: Colonoscopy 02/04/2022 Depression Screening 02/04/2022 Falls Risk Assessment 02/04/2022 Hepatitis C Screening 02/04/2022 Social Influencers of Health Screening 02/04/2022 COVID-19 Vaccine ( - 2023-2 5 season) 2023 Influenza Vaccine (#1) 2023 RSV Immunization Patients 60 + Years Old (1 - 1-dose 75+ series) 06/05/2030 Abdominal Aortic Aneurysm (A AA) Screen Completed 10/02/2020 HIB Vaccines Aged Out No longer eligi ble based on patient's age to complete this topic HPV Vaccines Aged Out No longer eligi ble based on patient's age to complete this topic Hepatitis A Vaccines Aged Out No long er eligible based on patient's age to complete this topic Hepatitis B Vaccines Aged Out No long er eligible based on patient's age to complete this topic IPV Vaccines Aged Out No longer eligi ble based on patient's age to complete this topic MMR Vaccines Aged Out No longer eligi ble based on patient's age to complete this topic Meningococcal ACWY Vaccine Aged Out N o longer eligible based on patient's age to complete this topic Meningococcal B Vacine Aged Out No lo nger eligible based on patient's age to complete this topic RSV Immunization Patients Un dian 20 months Aged Out No longer eligible b ased on patient's age to complete this topic Varicella Vaccines Aged Out No longer eligible based on patient's age to complete this topic Procedures Procedure Name Priority Date/Time Associated Diagnosis Comments US ABDOMEN AORTA SCR STUDY AAA Routine 10/02/2020 2:00 PM EDT Encounter for screening for cardiovascular disorders from Last 3 Months or Most Recently Relevant to Health Maintenance Results * US ABDOMEN AORTA SCR STUDY AAA (10/02/2020 2:00 PM EDT) Anatomical Region Laterality Modality Ultrasound 10/02/2020 1:08 PM EDT Narrative 10/02/2020 2:00 PM EDT [facility] Diagnostic Imaging Department [address] [place], [place] [id number] Patient: ??BOGDAN LIZAMA ?/Age/Sex: 1955 - 65 - M Unit#: ??[id number] ? Location/Status: ??SPDIUS/REG CLI ? Mnemonic/Ordering Site: ??AAASCRSTUD/SPUS Ordering Physician: ??SHANA LORENZO MD US Abdomen Aorta Scr Study AAA - 10/02/20 - 1326 History: Abdominal aortic aneurysm screening. Findings: Real-time imaging of the abdomen, limited to the abdominal aorta, was performed. The abdominal aorta is normal in caliber, measuring 2.6 cm AP proximally, 2.0 cm in the midportion, and 1.6 cm distally. No periaortic fluid collections are identified. The aortic bifurcation is normal. The bilateral common iliac arteries are mildly ectatic, measuring 1.2 cm in diameter on the right and 1.1 cm on the left. Impression: No evidence of abdominal aortic aneurysm. [id number] Dictating Physician: ??LEW SILVA MD Electronically Signed by: ??LEW SILVA MD Dic Date/Time: ??10/02/20 1359 Sign date/Time: ??10/02/20 1400 Procedure Note Lew Silva MD - 02/24/2022 [facility] Diagnostic Imaging Department [address] [place], [place] [id number] Patient: LIZAMABOGDAN /Age/Sex: 1955 - 65 - M Unit#: [id number] Location/Status: SPDIUS/REG CLI Mnemonic/Ordering Site: AAASCRSTUD/SPUS Ordering Physician: SHANA LORENZO MD US Abdomen Aorta Scr Study AAA - 10/02/20 - 1326 History: Abdominal aortic aneurysm screening. Findings: Real-time imaging of the abdomen, limited to the abdominal aorta, was performed. The abdominal aorta is normal in caliber, measuring 2.6 cm AP proximally,2.0 cm in the midportion, and 1.6 cm distally. No periaortic fluid collectionsare identified. The aortic bifurcation is normal. The bilateral common iliac arteriesare mildly ectatic, measuring 1.2 cm in diameter on the right and 1.1 cm onthe left. Impression: No evidence of abdominal aortic aneurysm. [id number] Dictating Physician: LEW SILVA MD Electronically Signed by: LEW SILVA MD Dic Date/Time: 10/02/20 1359 Sign date/Time: 10/02/20 1400 us Shana Lorenzo MD IM US PROCEDURES Final Result from Last 3 Months or Most Recently Relevant to Health Maintenance Care Teams Property Insurance Inspector Relationship Specialty Start Date End Date Shana Lorenzo MD PCP - General Internal Medicine 09/24/16
--- OUTSIDE RECORDS SUMMARY | 2024-04-24 15:40 | XMS_ITS ---
Author Organization [facility] Address [address] [place] [phone] Care Team Providers Care Parer Name Role Phone [facility] Primary Care Provider [phone] Allergies No Known Allergies Results Component Value Reference Range Notes Hemoglobin A1C Reviewed date:04/12/2024 10:13:40 AM Interpretation: Performing Lab: Notes/Report: [facility] Lot: [id number] HbA1c 6.9 1.000;0.0 %;NGS P Reason For Referral Reason faxed Diagnosis 1 Obstructive sleep ap shubham (adult) (pediatric) (G47.33) Referral Organization [facility] Referring Provider First Name Shana Referring Provider Last Name Luis Fernando Referring Provider Speciality Internal M edicine Referred Provider Casey Mckeon Referred Provider Specialty Sleep Medici ne General Notes Hamida REZA 03/31 04:17:31 PM >faxed Referral Priority Routine REASON FOR VISIT 6-8 week DM Medications Medication SIG (Take, Route, Frequency, Duration) Notes Start Date End Date Status Zolpidem Tartrate 10 MG 1 tablet at bedt maribel Orally Once a Day as needed for 90 days 01/16/2024 07/14/2024 Active Ketoconazole 2 % USE 1 APPLICATION EXTERNALLY TWICE A DAY FOR 28 DAYS for 28 Active Pregabalin 100 MG TAKE 1 CAPSULE BY MOUTH TWICE DAILY for 90 04/02/2024 Active Aspirin 81 MG 1 tablet Orally Once a day for 90 days Not-Taking Eliquis 5 MG 1 Tablet Orally Tw a day for 90 days Active Farxiga 10 MG TAKE 1 TABLET BY JESSICA TH EVERY DAY Orally Once a day for 90 days 05/05/2024 Active Entresto 97-103 MG 1 tablet Orally Twic e a day for 90 Active Carvedilol 12.5 MG TAKE 1 TABLET BY JESSICA TH TWICE DAILY for 90 days Active Pentoxifylline ER 400 MG TAKE 1 TABLET B Y MOUTH TWICE DAILY WITH MEALS for 90 Active Testosterone 20.25 MG/ACT (1.62%) 4 pump to skin in the morning to shoulder, upper arms Transdermal Once a day for 30 days 12/21/2023 Active Vitamin D3 25 MCG (1000 UT) 1 tablet Orally Once a day for 90 days Active Venlafaxine HCl ER 150 MG TAKE 1 CAPSULE BY MOUTH ONCE DAILY WITH FOOD for 90 Active Rosuvastatin Calcium 40 MG TAKE 1 TABLET BY MOUTH DAILY for 90 Active Tamsulosin HCl 0.4 MG TAKE 1 CAPSULE BY MOUTH ONCE DAILY 1/2 HOUR FOLLOWING THE SAME MEAL EACH DAY for 90 Active Ozempic (1 MG/DOSE) 4 MG/3ML 1 mg Subcutaneous Once a Week 04/09/2024 Active Flonase 50 MCG/ACT INHALE 2 SPRAYS INTO EACH NOSTRIL DAILY. for 30 Active Social History Tobacco Use: Social History Observation Description Date Details (start date - stop date) Former Smoker NA - NA AUDIT-C (Standard) Question Answer Notes Did you have a drink containing alcohol in the p ast year? No Points 0 Interpretation Negative Tobacco Control (Standard) Question Answer Notes Tobacco use: Former smoker How long has it been since y ou last smoked? Greater than 10 years Additional Findings: Tobacco non-user Ex -very heavy cigarette smoker (40+/day) Vital Signs Temperature 95.2 degrees Fahrenheit 04/09/19 25 Blood pressure systolic 116 mm Hg 04/09/19 25 Blood pressure diastolic 66 mm Hg 025 Heart Rate 94 /min 04/09/2024 Height 70 in 04/09/2024 Weight 202 lbs 04/09/2024 BMI 28.98 kg/m2 04/09/2024 Oximetry 96 % 04/09/2024 Encounters Encounter Location Date Provider Diagnosis [facility] MD [address] [phone] 04/09/2024 Sh[facility] Gould Type 2 diabetes mellitus with diabetic chronic kidney disease E11.22 ; Hypertensive heart and chronic kidney disease with heart failure and stage 1 through stage 4 chronic kidney disease, or unspecified chronic kidney disease I13.0 ; Chronic kidney disease, stage 3a N18.31 ; Dilated cardiomyopathy I42.0 ; Chronic systolic (congestive) heart failure I50.22 ; Paroxysmal atrial fibrillation I48.0 ; Other thrombophilia D68.69 ; Atherosclerotic heart disease of [place] coronary artery without angina pectoris I25.10 ; Mixed hyperlipidemia E78.2 ; Obstructive sleep apnea (adult) (pediatric) G47.33 ; Testicular hypofunction E29.1 and Vitamin D deficiency, unspecified E55.9 Assessments Encounter Date Diagnosis (ICD Code) Assessment Notes Treatment Notes Treatment Clinical Notes Section Notes 04/09/2024 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 Recommend increase medical therapy as tolerated. Not only will this give him better diabetes control but also adjunct therapy for his heart failure. 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 He may be able to reduce medical therapy such as carvedilol as he continues to increase his Ozempic and has further weight loss 04/09/2024 Chronic kidney disease, stage 3a (ICD-10 - N18.31) Stable at present with estimated GFR in the 40s. Continue control of comorbidities of hypertension and diabetes 04/09/2024 Dilated cardiomyopathy (ICD-10 - I42.0) Stable and unchanged. His prior echocardiogram showed an ejection fraction of 40%. Continue current disease modifying therapy of Entresto 04/09/2024 Chronic systolic (congestive) heart failure (ICD-10 - I50.22) Symptomatically stable at present. Continue current medical therapy 04/09/2024 Paroxysmal atrial fibrillation (ICD-10 - I48.0) He is paced on exam. Continue chronic anticoagulation. 04/09/2024 Other thrombophilia (ICD-10 - D68.69) He continues on anticoagulation due to increased risk for thromboembolic events based on an elevated CHADS2 score in the setting of atrial fibrillation 04/09/2024 Atherosclerotic heart disease of [place] coronary artery without angina pectoris (ICD-10 - I25.10) Stable without any progressive symptoms. Continue GLP therapy for cardiovascular risk reduction 04/09/2024 Mixed hyperlipidemia (ICD-10 - E78.2) Controlled with LDL less than 70. Continue current therapy 04/09/2024 Obstructive sleep apnea (adult) (pediatric) (ICD-10 - G47.33) He needs a new CPAP device. Recommend reevaluation for sleep study 04/09/2024 Testicular hypofunction (ICD-10 - E29.1) Stable on prior labs as reviewed. Recheck status 04/09/2024 Vitamin D deficiency, unspecified (ICD-10 - E55.9) Stable on prior labs reviewed. Recheck status and would consider vitamin D supplementation for goal level of 30+ and if possible 50+ 04/09/2024 Other This note was created with voice dictation recognition software and may contain errors of grammar and syntax. Also labs were reviewed with patient. Plan Of Treatment Medication Medication Name Sig Start Date Stop Date Notes Ozempic (0.25 or 0.5 MG/DOSE) 2 MG/3ML 0.5 mg Subcutaneous Once a Week 10/11/2023 Ozempic (1 MG/DOSE) 4 MG/3ML 1 mg Subcutaneous Once a Week 04/09/2024 Pending Test Test Name Order Date Urinalysis, Complete-[id number] 04/09/2024 Testosterone, F Eqlib+T LC/MS-[id number] 11/2024 Vitamin D, 31-Sotduei-[id number] 04/09/2024 Albumin/Creatinine Ratio,Urine-[id number] B-Type Natriuretic Peptide-[id number] 2024 Comp. Metabolic Panel ([id number] 2024 LP+Non-HDL Cholesterol-[id number] 04/09/2024 Referrals Referral Date Details 04/09/2024 04/09/2024, faxed, Coleman Mckeon Next Appt Details Follow Up: 4 Months, Reason: Diabetes Provider Name:Shana Gould , 08/08/2024 01:00:00 PM, [address] [place] [address], [phone], Provider Name:Shana Gould , 10/18/2024 01:00:00 PM, [address] [place] [address], [phone], Progress Notes * Bogdan LIZAMA ADOB: (68 yo M)Acc No.[id number]:04/09/2024 Progress Note Patient:?Bogdan LIZAMA Provider:?[facility] MD :1955???Age:68 Y???Sex:Male Aldo e:04/09/2024 Address:[address] [place] [address] Subjective: * Chief Complaints: * ???6-8 week DM * HPI: ???Atrial Fibrillation:?Patient presents for follow-up of atrial fibrillation?which was diagnosed months ago, is considered paroxysmal.?CHADS2 score?His [id number] score is at least a 5.?Congestive Heart Failure:?Patient presents for follow-up of congestive heart failure?which is considered secondary to low output.?Diabetes mellitus:?The patient presents for follow-up of diabetes mellitus?which was diagnosed years ago, considered type II.?Hypertension:?Patient presents for follow-up of hypertension?which is long-standing, which was diagnosed years ago.?Chronic kidney disease:?Classification of renal failure is?Stage 3.?Glomerular filtration rate?24HR Urine: 53 .? * Medical History:? * Surgical History:?LAD Angiop lasty ICD insertion Appendectomy Inguinal Hernia Repair, RIGHT cataract-lens implants, LT 08/2019cataract-lens implants, RT 08/2019 * Hospitalization/Major Diagno stic Procedure:?Denies Past Hospitalization * Family History:?Spouse: rimma valenzuela 50 yrs, Healthy.?Father: , Prostate cancer. at 77.?Mother: alive 91 yrs, Skin cancer.?Son(s): alive 42 yrs, Healthy.?Daughter(s): alive 44 yrs, Healthy1 daughter alive 1990 healthy.?Siblings: alive, Heart attack, diabetes.?1 sister(s) - healthy. 1 son(s) , 2 daughter(s) - healthy. .? No family history of: cancer, colon, (AWV) Family history verified no changes since last visit. * Social History:?Tobacco Use:?Tobacco Control (Standard)?Tobacco use:?Former smoker ?How long has it been since you last smoked??Greater than 10 years ?Additional Findings: Tobacco non-user?Ex-very heavy cigarette smoker (40+/day) ???Drugs/Alcohol:?Drugs?Have you used drugs other than those for medical reasons in the past 12 months??No ?Caffeine?Intake:?none ?Do you smoke marijuana?: Admits. ?Do you drink alcohol?: No. ???Miscellaneous:?Exercise: no. ?Occupation: Retired. ???Household:?Household?Marital status:?Drug/Alcohol:?AUDIT-C (Standard)?Did you have a drink containing alcohol in the past year??No ?Points?0 ?Interpretation?Negative * Medications:?TakingFlonase 5 0 MCG/ACT Suspension INHALE 2 SPRAYS INTO EACH NOSTRIL DAILY. Vitamin D3 25 MCG (1000 UT) Tablet 1 tablet Orally Once a day Venlafaxine HCl ER 150 MG Capsule Extended Release 24 Hour TAKE 1 CAPSULE BY MOUTH ONCE DAILY WITH FOOD Rosuvastatin Calcium 40 MG Tablet TAKE 1 TABLET BY MOUTH DAILY Tamsulosin HCl 0.4 MG Capsule TAKE 1 CAPSULE BY MOUTH ONCE DAILY 1/2 HOUR FOLLOWING THE SAME MEAL EACH DAY Farxiga 10 MG Tablet TAKE 1 TABLET BY MOUTH EVERY DAY Orally Once a day , stop date 05/05/2024Entresto 97-103 MG Tablet 1 tablet Orally Twice a day Carvedilol 12.5 MG Tablet TAKE 1 TABLET BY MOUTH TWICE DAILY Pentoxifylline ER 400 MG Tablet Extended Release TAKE 1 TABLET BY MOUTH TWICE DAILY WITH MEALS Testosterone 20.25 MG/ACT (1.62%) Gel 4 pump to skin in the morning to shoulder, upper arms Transdermal Once a day Ozempic (0.25 or 0.5 MG/DOSE) 2 MG/3ML Solution Pen-injector 0.5 mg Subcutaneous Once a Week Eliquis 5 MG Tablet 1 Tablet Orally Twice a day Zolpidem Tartrate 10 MG Tablet 1 tablet at bedtime Orally Once a Day as needed , stop date 07/14/2024Ketoconazole 2 % Cream USE 1 APPLICATION EXTERNALLY TWICE A DAY FOR 28 DAYS Pregabalin 100 MG Capsule TAKE 1 CAPSULE BY MOUTH TWICE DAILY Taking Flonase 50 MCG/ACT Suspension INHALE 2 SPRAYS INTO EACH NOSTRIL DAILY. Taking Vitamin D3 25 MCG (1000 UT) Tablet 1 tablet Orally Once a day Taking Venlafaxine HCl ER 150 MG Capsule Extended Release 24 Hour TAKE 1 CAPSULE BY MOUTH ONCE DAILY WITH FOOD Taking Rosuvastatin Calcium 40 MG Tablet TAKE 1 TABLET BY MOUTH DAILY Taking Tamsulosin HCl 0.4 MG Capsule TAKE 1 CAPSULE BY MOUTH ONCE DAILY 1/2 HOUR FOLLOWING THE SAME MEAL EACH DAY Taking Farxiga 10 MG Tablet TAKE 1 TABLET BY MOUTH EVERY DAY Orally Once a day , stop date 05/05/2024Taking Entresto 97-103 MG Tablet 1 tablet Orally Twice a day Taking Carvedilol 12.5 MG Tablet TAKE 1 TABLET BY MOUTH TWICE DAILY Taking Pentoxifylline ER 400 MG Tablet Extended Release TAKE 1 TABLET BY MOUTH TWICE DAILY WITH MEALS Taking Testosterone 20.25 MG/ACT (1.62%) Gel 4 pump to skin in the morning to shoulder, upper arms Transdermal Once a day Taking Ozempic (0.25 or 0.5 MG/DOSE) 2 MG/3ML Solution Pen-injector 0.5 mg Subcutaneous Once a Week Taking Eliquis 5 MG Tablet 1 Tablet Orally Twice a day Taking Zolpidem Tartrate 10 MG Tablet 1 tablet at bedtime Orally Once a Day as needed , stop date 07/14/2024Taking Ketoconazole 2 % Cream USE 1 APPLICATION EXTERNALLY TWICE A DAY FOR 28 DAYS Taking Pregabalin 100 MG Capsule TAKE 1 CAPSULE BY MOUTH TWICE DAILY Not-Taking/PRNAspirin 81 MG Tablet 1 tablet Orally Once a day Medication List reviewed and reconciled with the patientNot-Taking/PRN Aspirin 81 MG Tablet 1 tablet Orally Once a day Medication List reviewed and reconciled with the patient * Allergies:?N.K.D.A.no[Allerg ies Verified] Objective: * Vitals:?Temp:95.2F, HR:94/mi n, BP:Sitting Right Arm: 116/66mm Hg, Wt:202lbs, BMI:28.98Index, Ht:70in, Oxygen sat %:96%. Past Vitals:* 12/21/2023 Temp:96.3F, BP:Sitting Right Arm: 118/70mm Hg, Wt:206.2lbs, BMI:29.58Index, Ht:70in * 10/11/2023 Temp:95.9F, HR:75/min, BP:Si tting Right Arm: 122/70mm Hg, Wt:213.8lbs, BMI:30.67Index, Ht:70in, Oxygen sat %:97% * 08/03/2023 Temp:95.8F, HR:71/min, BP:Si tting Right Arm: 122/60mm Hg, Wt:214lbs, Oxygen sat %:94% * ???Past Orders: ???Lab:CBC With Differential /Platelet-[id number] (Order Date - 10/11/2023) (Collection Date & Time - 10/11/2023 01:36 PM) ? Value Reference Range ?WBC 7.0 3.4-10.8 - x10E 3/uL ?RBC 6.50 H 4.14-5.80 - x10E6/uL ?Hemoglobin 17.3 13.0-17.7 - g/dL ?Hematocrit 53.9 H 37.5-51.0 - % ?MCV 83 79-97 - fL ?MCH 26.6 26.6-33.0 - pg ?MCHC 32.1 31.5-35.7 - g/d L ?RDW 16.8 H 11.6-15.4 - % ?Platelets 105 L 150-450 - x10E3/uL ?Neutrophils 66 Not Esta b. - % ?Lymphs 20 Not Estab. - % ?Monocytes 8 Not Estab. - % ?Eos 4 Not Estab. - % ?Basos 1 Not Estab. - % ?Neutrophils (Absolute) 4.7 1.4-7.0 - x10E3/uL ?Lymphs (Absolute) 1.4 0. 7-3.1 - x10E3/uL ?Monocytes(Absolute) 0.5 0.1-0.9 - x10E3/uL ?Eos (Absolute) 0.2 0.0-0 .4 - x10E3/uL ?Baso (Absolute) 0.1 0.0- 0.2 - x10E3/uL ?Immature Granulocytes 1 Not Estab. - % ?Immature Grans (Abs) 0.0 0.0-0.1 - x10E3/uL ???Lab:Comp. Metabolic Panel ([id number] (Order Date - 10/11/2023) (Collection Date & Time - 10/11/2023 01:36 PM) ? Value Reference Range ?Glucose 152 H 70-99 - mg/d L ?BUN 21 8-27 - mg/dL ?Creatinine 1.55 H 0.76-1.27 - mg/dL ?BUN/Creatinine Ratio 14 10-24 - ?Sodium 142 134-144 - mmo l/L ?Potassium 4.0 3.5-5.2 - mmol/L ?Chloride 103 96-106 - mm ol/L ?Carbon Dioxide, Total 22 20-29 - mmol/L ?Calcium 9.9 8.6-10.2 - m g/dL ?Protein, Total 6.8 6.0-8 .5 - g/dL ?Albumin 4.7 3.9-4.9 - g/ dL ?Globulin, Total 2.1 1.5- 4.5 - g/dL ?Bilirubin, Total 2.6 H 0.0 -1.2 - mg/dL ?Alkaline Phosphatase 69 44-121 - IU/L ?AST (SGOT) 14 0-40 - IU /L ?ALT (SGPT) 13 0-44 - IU /L ?eGFR 48 L >59 - mL/min/1. 73 Lab:Hemoglobin A1C * Collection Date 12/21/2023 10/11/2023 08/03/2023 Collection Time 02:00 PM 12:58 PM 01:27 PM 01:57 PM Order Date 12/21/2023 10/11/2023 08/03/2023 05/03/2023 HbA1c 5.9 (Ref Range: %) 7.6 (Ref Range: %) 8.0?A (Ref Range: %) 7.5 (Ref Range: %) ???Lab:LP+Non-HDL Cholesterol-[id number] (Order Date - 10/11/2023) (Collection Date & Time - 10/11/2023 01:36 PM)?ValueReference Range?Cholesterol, Dwkiu794832-212 - mg/dL?Wynwlopctebru256K2-636 - mg/dL?HDL Spnzdmpqxdz59R>39 - mg/dL?VLDL Cholesterol Hyl489-51 - mg/dL?LDL Chol Calc ([facility])490-99 - mg/dL?Non-HDL Jijutzjazgt609-293 - mg/dL ???Lab:B-Type Natriuretic Peptide-[id number] (Order Date - 10/11/2023) (Collection Date & Time - 10/11/2023 01:36 PM)?ValueReference Range?B-Type Natriuretic Okfyxlu58.90.0-100.0 - pg/mL ???Lab:Vitamin D, 28-Dduxnye-543771 (Order Date - 10/11/2023) (Collection Date & Time - 401:36 PM)?ValueReference Range?Vitamin D, 25-Jaofvgi52.430.0-100.0 - ng/mL ???Lab:Urinalysis, Complete-[id number] (Order Date - 10/11/2023) (Collection Date & Time - 10/11/2023 01:36 PM)?ValueReference Range?Specific Odin >=1.030A1.005-1.030 -?pH5.55.0-7.5 -?Urine-ColorYellowYellow - ?AppearanceClearClear -?WBC EsteraseNegativeNegative - ?Protein2+ANegative/Trace -?Glucose3+ANegative -?Ketones NegativeNegative -?Occult BloodNegativeNegative -?Bilirubin NegativeNegative -?Urobilinogen,Semi-Qn0.20.2-1.0 - mg/dL?Nitrite, UrineNegativeNegative -?Microscopic ExaminationSee below:-?WBC0-50 - 5 - /hpf?RBCNone seen0 - 2 - /hpf?Epithelial Cells (non renal) 0-100 - 10 - /hpf?CastsNone seenNone seen - /lpf?BacteriaNone seen None seen/Few - ???Lab:Albumin/Creatinine Ratio,Urine-[id number] (Order Date - 10/11/2023) (Collection Date & Time - 10/11/2023 01:36 PM)?ValueReference Range ?Creatinine, Urine87.4Not Estab. - mg/dL?Albumin, Sxfqz908.7Not Estab. - ug/mL?Alb/Creat Xhmsw769E1-97 - mg/g creat ???Lab:Testosterone, F Eqlib+T LC/MS-[id number] (Order Date - 10/11/2023) (Collection Date & Time - 10/11/2023 01:36 PM)?ValueReference Range ?Testosterone, Total, LC/MS400.6264.0-916.0 - ng/dL?Testosterone, Free17.155.00-21.00 - ng/dL?% Free Testosterone4.28H1.50-4.20 - % ???Lab:Prostate-Specific Ag-[id number] (Order Date - 10/11/2023) (Collection Date & Time - 10/11/2023 01:36 PM)?ValueReference Range?Prostate Specific Ag0.90.0-4.0 - ng/mL ???Lab:HCV Antibody-[id number] (Order Date - 10/11/2023) (Collection Date & Time - 10/11/2023 01:36 PM)?ValueReference Range?Hep C Virus AbNon ReactiveNon Reactive - * Examination: ???General Examination: ?GENERAL APPEARANCE:?Age appropriate, in no acute distress, well developed, well nourished.?HEAD:? atraumatic, normocephalic.?EYES:? sclera anicteric, extraocular movement full and smooth.?HEART:?regular rate and rhythm, S1, S2 normal.?LUNGS:?clear to auscultation bilaterally.?EXTREMITIES:?no clubbing, cyanosis, or edema.?NEUROLOGIC:?alert and oriented, gait normal.?PSYCH:? good eye contact, speech clear.? Assessment: * Assessment: 1.?Type 2 diabetes mellitus with diabetic chronic kidney disease - E11.22 (Primary)???2.?Hypertensive heart and chronic kidney disease with heart failure and stage 1 through stage 4 chronic kidney disease, or unspecified chronic kidney disease - I13.0???3.?Chronic kidney disease, stage 3a - N18.31???4.?Dilated cardiomyopathy - I42.0???5.?Chronic systolic (congestive) heart failure - I50.22???6. Paroxysmal atrial fibrillation - I48.0???7.?Other thrombophilia - D68.69???8.?Atherosclerotic heart disease of [place] coronary artery without angina pectoris - I25.10???9.?Mixed hyperlipidemia - E78.2???10.?Obstructive sleep apnea (adult) (pediatric) - G47.33???11.?Testicular hypofunction - E29.1???12.?Vitamin D deficiency, unspecified - E55.9??? Plan: * Treatment: ? Value Reference Range ?HbA1c 6.9 - % * This lab was reviewed by Donald Gould on 04/12/2024 at 10:13 AM EST Clinical Notes: Stable with current medical therapy. Recommend increase medical therapy as tolerated. Not only will this give him better diabetes control but also adjunct therapy for his heart failure.??2.?Hypertensive heart and chronic kidney disease with heart failure and stage 1 through stage 4 chronic kidney disease, or unspecified chronic kidney disease?LAB: Urinalysis, Complete-[id number] ?LAB: Albumin/Creatinine Ratio,Urine-642435 ?LAB: Comp. Metabolic Panel ([id number] Clinical Notes: Stable at present. He may be able to reduce medical therapy such as carvedilol as he continues to increase his Ozempic and has further weight loss??3.?Chronic kidney disease, stage 3a?LAB: Urinalysis, Complete-[id number] ?LAB: Albumin/Creatinine Ratio,Urine-753746 ?LAB: Comp. Metabolic Panel ([id number] Clinical Notes: Stable at present with estimated GFR in the 40s. Continue control of comorbidities of hypertension and diabetes??4.?Dilated cardiomyopathy ? Clinical Notes: Stable and unchanged. His prior echocardiogram showed an ejection fraction of 40%. Continue current disease modifying therapy of Entresto??5.?Chronic systolic (congestive) heart failure?LAB: B-Type Natriuretic Peptide-086630 Clinical Notes: Symptomatically stable at present. Continue current medical therapy??6.?Paroxysmal atrial fibrillation? Clinical Notes: He is paced on exam. Continue chronic anticoagulation.??7.?Other thrombophilia? Clinical Notes: He continues on anticoagulation due to increased risk for thromboembolic events based on an elevated CHADS2 score in the setting of atrial fibrillation??8.?Atherosclerotic heart disease of [place] coronary artery without angina pectoris? Clinical Notes: Stable without any progressive symptoms. Continue GLP therapy for cardiovascular risk reduction??9.?Mixed hyperlipidemia?LAB: LP+Non-HDL Cholesterol-609238 Clinical Notes: Controlled with LDL less than 70. Continue current therapy?? 10.?Obstructive sleep apnea (adult) (pediatric)? Clinical Notes: He needs a new CPAP device. Recommend reevaluation for sleep study? Referral To:Casey Mckeon??Sleep Medicine ?Reason:faxed 11.?Testicular hypofunction?LAB: Testosterone, F Eqlib+T LC/MS-[id number] Clinical Notes: Stable on prior labs as reviewed. Recheck status??12.?Vitamin D deficiency, unspecified?LAB: Vitamin D, 54-Xxhucln-622943 Clinical Notes: Stable on prior labs reviewed. Recheck status and would consider vitamin D supplementation for goal level of 30+ and if possible 50+??13.?Others? Clinical Notes: This note was created with voice dictation recognition software and may contain errors of grammar and syntax. Also labs were reviewed with patient.?? * Procedure Codes:?74020 GLYCA DAVID HEMOGLOBIN TEST, Modifiers: QW 3044F HG A1C LEVEL LT 7.0% * Follow Up:?4 Months (Reason: Diabetes) * Images: Billing Information: * Visit Code:? 95529 Office Visit, Est Pt., Level 4. * Procedure Codes:? 16874 GLYCATED HEMOGLOBIN TEST. Modifiers: QW 3044F HG A1C LEVEL LT 7.0%. Care Plan Details* * Sign off status: Completed true * Provider:?Shana Gould MD Date:?04/09 Generated for Gita nixon/Mich/Rod on:?04/24/2024 03:39 PM EST History and Physical Notes * HPI (History of Present Illness) Category Sub-Category Detail Notes Category Not es Atrial Fibrillation Patient presents for follow-up of atrial fibrillation which was diagnosed months ago, is considered paroxysmal CHADS2 score His [id number] sco re is at least a 5 Congestive Heart Failure Patient present s for follow-up of congestive heart failure which is considered secondary to low output Hypertension Patient presents for follow-up of hypertension which is long-standing, which was diagnosed years ago Chronic kidney disease Classification of renal failure is Stage 3 Glomerular filtration rate 24HR Urine: 5 3 Diabetes mellitus The patient presents for follow-up of diabetes mellitus which was diagnosed years ago, considered type II Examination Category Sub-Category Detail Notes Category Not es General Examination GENERAL APPEARANCE: Age appr opriate, in no acute distress, well developed, well nourished HEAD: atraumatic, normocep halic EYES: sclera anicteric, ex traocular movement full and smooth HEART: regular rate and rhy thm, S1, S2 normal LUNGS: clear to auscultatio n bilaterally NEUROLOGIC: alert and oriented, gait normal EXTREMITIES: no clubbing, cyanosi s, or edema PSYCH: good eye contact, sp eech clear Consultation Request Notes Referral Date Referring Provider Referred Provider Not es 04/09/2024 Shana Gould Paul faxed
== END 2024-04-24 13:41 | disposition home or self-care (01) ==
PROVIDERS: PCP Internal Medicine; Visit Provider Orthopaedic Surgery
DX: M25.811 Other specified joint disorders, right shoulder (principal); M17.11 Unilateral primary osteoarthritis, right knee
CPT/HCPCS: 20610; 99213

== ENCOUNTER → 2024-04-24 12:52 | Outpatient (BNVA) | payer OTHER, MEDICARE, SELFPAY | PROVIDERS: PCP Internal Medicine; Visit Provider Orthopaedic Surgery | DX: M25.811 Other specified joint disorders, right shoulder (principal); M17.11 Unilateral primary osteoarthritis, right knee | CPT/HCPCS: 20610; J1010; J2003 ==

== ENCOUNTER 2024-07-17 13:00 | Outpatient (AMB) | payer OTHER, MEDICARE, SELFPAY ==
--- NOTE | 2024-07-17 13:08 | MHC.OFFVIS ---
Vital Signs 07/17/24 13:13 Height 5 ft 9 in Weight 210 lb BMI 31.0 Intake Visit Reasons: Bilateral shoulder pain Intake Note: Bogdan is a 69 year old male who presents with complaints of bilateral shoulder pains. He describes his pains as sharp in nature. Most of his pain is along the lateral aspects of his shoulders. He reports mild weakness when lifting his hands above shoulder height. He has had injections in the past which gave him fairly good relief. He has also tried Tylenol which gives him only mild relief. He is not able to take anti-inflammatory medicines because he is on Eliquis. Allergies No Known Allergies Allergy (Verified 07/17/24 13:13) Medication List - Last Reconciled 07/17/24 by Brad Jefferson MD apixaban (Eliquis) 2.5 mg PO BID carvedilol 3.125 mg PO Q12H dapagliflozin propanediol (Farxiga) 10 mg PO DAILY fluticasone furoate 27.5 mcg/actuation (Flonase Sensimist) 1 spray intranasal DAILY metformin ER 750 mg PO DAILY pentoxifylline ER 400 mg PO BID pregabalin (Lyrica) 25 mg PO DAILY rosuvastatin (Crestor) 5 mg PO DAILY sacubitril-valsartan 24-26 mg (Entresto) 1 tab PO BID semaglutide (Ozempic) 0.25 mg subcut QWEEK tamsulosin (Flomax) 0.4 mg PO BEDTIME testosterone 81 mg topical QAM venlafaxine 12.5 mg PO DAILY zolpidem mg PO PFSH Social History (Updated 04/05/23 @ 13:55 by Misti Montemayor CMA) Patient Tobacco Use Status: Never used Tobacco Current occupational status: retired and disabled Current occupation: rt hand Physical Exam Vital Signs: BMI result Body Mass Index 31.0 Const Other: Well-nourished well-developed very friendly male awake alert and oriented x3 in no acute distress Extrem Other: Bilateral shoulder examination shows forward flexion to 160 degrees, external rotation to 50 degrees, internal rotation to level L4, 4+ out of 5 strength with supraspinatus testing, positive impingement signs, no instability Office Procedures AMB Joint Injection/Aspiration Joint Injection/Aspiration Primary Site: left shoulder Prep: site was prepped using aseptic technique Injected: 40 mg of, DepoMedrol and 1% plain lidocaine Procedure: The patient tolerated the procedure well Coding 50467 - Large joint Procedure code (CPT) selection complete AMB Joint Injection/Aspiration Joint Injection/Aspiration Primary Site: right shoulder Prep: site was prepped using aseptic technique Injected: 40 mg of, DepoMedrol and 1% plain lidocaine Procedure: The patient tolerated the procedure well Coding 34618 - Large joint Procedure code (CPT) selection complete Results Reviewed Results Reviewed: X-rays of the patient's bilateral shoulders taken today show acromioclavicular joint narrowing, type 2 acromion, no acute bony abnormalities Assessment & Plan Assessment & Plan (1) Bilateral shoulder pain: Code(s): M25.511 - Pain in right shoulder; M25.512 - Pain in left shoulder Category: Medical (2) Impingement syndrome of left shoulder: Code(s): M75.42 - Impingement syndrome of left shoulder Category: Medical (3) Impingement of right shoulder: Code(s): M25.811 - Other specified joint disorders, right shoulder Category: Medical Plan Mr. Curtis presents with bilateral shoulder pains due to impingement syndrome. The risks and benefits of bilateral shoulder cortisone injections were discussed at length with the patient. The patient wished to proceed. He tolerated the injections well. He will continue with his home exercise program. Will contact me prior to his follow-up appointment in 3 months should any questions or concerns arise. Feel free to call me at any time should regarding his orthopedic management arise. I spent 22 minutes in reviewing the patient's records and imaging studies, seeing the patient and documenting in the medical record. Orders: Orders AMB Joint Injection/Aspiration Today M75.42 - Impingement syndrome of left shoulder AMB Joint Injection/Aspiration Today M25.811 - Other specified joint disorders, right shoulder XR Shoulder Mynor min 2V Today M25.511 - Pain in right shoulder, M25.512 - Pain in left shoulder Coding Level of Care Code Est Pt Level 3 (56347) Complex EM visit Add On G2211 Diagnoses Bilateral shoulder pain M25.511; M25.512 Impingement syndrome of left shoulder M75.42 Impingement of right shoulder M25.811 CPT Codes Coding - 95766 Large joint: 88568 - Large joint ([id number]) Coding - 97650 Large joint: 28192 - Large joint ([id number])
[2024-07-17 13:13] VITALS: BMI 31.0
--- OUTSIDE RECORDS SUMMARY | 2024-07-17 14:05 | XMS_ITS | Clinical Summary ---
Author Organization [facility] [place] [address] Care Team Providers Care Registered Route Associate Name Role Phone Shana Lorenzo MD Primary Care Provider [phone] Surgical History Surgery Date Site/Laterality Comments HERNIA REPAIR PROCEDURE:HERNIA REPAIR OTHER SURGICAL HISTORY PROCEDURE:cardiac stents Medical History Medical History Date Comments Diabetes mellitus (CMS/HCC V 24, CMS/HCC V28) DX:Diabetes mellitus (HCC) Hypertension DX:Hypertension Heart disease DX:Heart disease Peripheral vascular disease (CMS/HCC V24) DX:Peripheral vascular disease (HCC) Family History Medical [...] Influencers of Health Screening 02/04/2022 COVID-19 Vaccine (1 - 2023-2 5 season) 2023 Influenza Vaccine (Season Ended) 2024 RSV Immunization Adult Patie nts (1 - 1-dose 75+ series) 06/05/2030 Abdominal [...] age to complete this topic Meningococcal B Vaccine Aged Out No l onger eligible based on patient's age to complete [...] PM EDT Narrative 10/02/2020 2:00 PM EDT [facility] Diagnostic Imaging Department [address] [place], [place] [id number] Patient: ??BOGDAN LIZAMA ?/Age/Sex: 1955 - 65 - M Unit#: ??[id number] ? Location/Status: ??SPDIUS/REG CLI ? Mnemonic/Ordering Site: [...] Procedure Note Lew Silva MD - 02/24/2022 [facility] Diagnostic Imaging Department [address] [place] [address] Patient: BOGDAN LIZAMA./Age/Sex: 1955 - 65 - M Unit#: [id number] Location/Status: SPDIUS/REG CLI Mnemonic/Ordering Site: [facility]STUD/SPUS Ordering [...] date/Time: 10/02/20 1400 us Shana Lorenzo MD [facility] [place] Final Result from Last 3 Months or Most Recently Relevant to Health Maintenance Care Teams Registered Route Associate Relationship Specialty Start Date End Date Shana Lorenzo MD PCP - General Internal Medicine 09/24/16
--- OUTSIDE RECORDS SUMMARY | 2024-07-17 14:05 | XMS_ITS | Clinical Summary ---
Author Organization [facility] Address [address] [place] [address] Care Team Providers Care Transport Company Manager Name Role Phone Shana Gould MD Primary Care Provider Allergies No known active allergies Medications Medication [...] Group Subscriber ID Effective Dates Phone Address [facility] [id number] 2019-Pr esent [address] [place] [address] [place] [id number] 2011-Pre sent [employer] [address] [place] [address] Medicare Care Teams Transport Company Manager Relationship Specialty Start Date End Date Shana Gould MD [address] [address] PCP - General Internal Medicine 09/24/16
--- OUTSIDE RECORDS SUMMARY | 2024-07-17 14:05 | XMS_ITS | Patient Health Record ---
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 It has not been cleared or approved by the Food and Drug Administration. Cholesterol, Total 98 100-199 mg/dL Triglycerides 230 0-149 mg/dL HDL Cholesterol 28 >39 mg/dL VLDL Cholesterol Kalyan 36 5-40 mg/dL LDL Chol Calc (NIH) 34 0-99 mg/dL Non-HDL Cholesterol 70 0-129 mg/dL Comp. Metabolic Panel (14)-3 26701 Reviewed date:04/30/2024 03:52:19 PM Interpretation: Performing Lab:[facility] [place], [facility] [address], [place], Phone - [phone], Director - MDJodry Notes/Report: Test(s) 772355-Dsnypjpgcppx, Total, LC/MS was developed and its performance characteristics determined by [employer]. It has not been cleared or approved by the Food and Drug Administration. Glucose 268 70-99 mg/dL BUN 20 8-27 mg/dL Creatinine 1.51 0.76-1.27 mg/dL eGFR 50 >59 mL/min/1.73 BUN/Creatinine Ratio 13 10-24 Sodium 141 134-144 mmol/L Potassium 4.4 3.5-5.2 mmol/L Chloride 103 96-106 mmol/L Carbon Dioxide, Total 25 20-29 mmol/L Calcium 9.2 8.6-10.2 mg/dL Protein, Total 6.1 6.0-8.5 g/dL Albumin 4.3 3.9-4.9 g/dL Globulin, Total 1.8 1.5-4.5 g/dL Bilirubin, Total 4.2 0.0-1.2 mg/dL Alkaline Phosphatase 75 44-121 IU/L AST (SGOT) 18 0-40 IU/L ALT (SGPT) 21 0-44 IU/L B-Type Natriuretic Peptide-1 64955 Reviewed date:04/30/2024 03:52:19 PM Interpretation: Performing Lab:[facility], [address] [place] [address], Phone - [phone], Director - [facility] Notes/Report: Test(s) 072877-Xfigjphnsskp, Total, LC/MS was developed and its performance characteristics determined by [facility]. It has not been cleared or approved by the Food and Drug Administration. B-Type Natriuretic Peptide 14.6 0.0-100.0 pg/m L Siemens ADVIA Centaur XP methodology Request Problem TNP Test not performed. Unable to obtain result due to presence of unknown interfering substance(s). TEST: 378763 % Free Testosterone Panel: 018136 Albumin/Creatinine Ratio,Uri ne-500561 Reviewed date:04/30/2024 03:52:19 PM Interpretation: Performing Lab:[facility] [place], [address] [place] [address], Phone - [phone], Director - [facility] Notes/Report: Test(s) 365536-Ogiuxrnzeqrf, Total, LC/MS was developed and its performance characteristics determined by [facility]. It has not been cleared or approved by the Food and Drug Administration. Creatinine, Urine 77.4 Not Estab. mg/dL Albumin, Urine 49.3 Not Estab. ug/mL Alb/Creat Ratio 64 0-29 mg/g creat Normal: 0 - 29 Moderately increased: 30 - 300 Severely increased: >300 Vitamin D, 13-Ylifqpv-725319 Reviewed date:04/30/2024 03:52:19 PM Interpretation: Performing Lab:[facility] [place], [address] [facility], [place], Phone - [phone], Director - Jesus Notes/Report: Test(s) 473597-Mmdtgxxgeztk, Total, LC/MS was developed and its performance characteristics determined by [facility]. It has not been cleared or approved by the Food and Drug Administration. Vitamin D, 25-Hydroxy 49.8 30.0-100.0 ng/mL Vitamin D deficiency has been defined by the [place] of [employer] and an Endocrine Society practice guideline as a level of serum 25-OH vitamin D less than 20 ng/mL (1,2). The Endocrine Society went on to further define vitamin D insufficiency as a level between 21 and 29 ng/mL (2). 1. IOM ([place] of [employer]). 2010. Dietary reference intakes for calcium and D. [place]: The National Academies Press. 2. Darryl MF, Geo NC, Rebel TAMAYO, et al. Evaluation, treatment, and prevention of vitamin D deficiency: an Endocrine Society clinical practice guideline. JCEM. 2010; 96(7):1911-30. Testosterone, F Eqlib+T LC/M S-040360 Reviewed date:04/30/2024 03:52:18 PM Interpretation: Performing Lab:[facility] [place], [address] [facility], [place], Phone - [phone], Director - Jesus Notes/Report: Test(s) 215425-Adzcpdtuwmtm, Total, LC/MS was developed and its performance characteristics determined by [facility]. It has not been cleared or approved by the Food and Drug Administration. Testosterone, Total, LC/MS 221.8 264.0-916.0 ng /dL [facility] method is currently certified by the CDC Hormone Standardization Program (HoSt). Adult male reference interval is based on a population of healthy nonobese males (BMI <30) between 19 and 39 years old. Hossein et.al. JCEM 2017,102;0369-3967. PMID: 96099364. Testosterone, Free TNP Unable to calculate result since non-numeric result obtained for component test. % Free Testosterone TNP Test not performed. Unable to obtain result due to presence of unknown interfering substance(s). Urinalysis, Complete-211608 Reviewed date:04/30/2024 03:52:18 PM Interpretation: Performing Lab:[facility] [place], [facility], [place], Phone - [phone], Director - WYJade Notes/Report: Test(s) 134474-Tijqwbrdoans, Total, LC/MS was developed and its performance characteristics determined by [facility]. It has not been cleared or approved by the Food and Drug Administration. Test(s) 720980-Ayvxkwzufpya, Total, LC/MS was developed and its performance characteristics determined by [facility]. It has not been cleared or approved by the Food and Drug Administration. Specific [place] >=1.030 1.005-1.030 pH 5.0 5.0-7.5 Urine-Color Yellow Yellow Appearance Clear Clear WBC Esterase Negative Negative Protein 1+ Negative/Trace Glucose 3+ Negative Ketones Negative Negative Occult Blood Negative Negative Bilirubin Negative Negative Urobilinogen,Semi-Qn 0.2 0.2-1.0 mg/dL Nitrite, Urine Negative Negative Microscopic Examination See below: Micr oscopic was indicated and was performed. WBC 0-5 0 - 5 /hpf RBC None seen 0 - 2 /hpf Epithelial Cells (non renal) 0-10 0 - 10 /hpf Casts None seen None seen /lpf Bacteria Many None seen/Few Hemoglobin A1C Reviewed date:04/12/2024 10:13:40 AM Interpretation: Performing Lab: Notes/Report: [facility] ([facility]), [facility] Lot: [id number] Hemoglobin A1C Reviewed date:12/21/2023 06:18:00 PM Interpretation: Performing Lab: Notes/Report: [facility] 2 ([facility] 2), [facility] Lot: [id number] HCV Antibody-[id number] Reviewed date:11/04/2023 03:53:13 PM Interpretation: Performing Lab:[facility] [place], [facility], [place], Phone - [phone], Director - Jesus Notes/Report: Test(s) 068533-Xnmyjefdjlra, Total, LC/MS was developed and its performance characteristics determined by [facility]. It has not been cleared or approved by the Food and Drug Administration. Hep C Virus Ab Non Reactive Non Reactive HCV antibody alone does not differentiate between previously resolved infection and active infection. Equivocal and Reactive HCV antibody results should be followed up with an HCV RNA test to support the diagnosis of active HCV infection. LP+Non-HDL Cholesterol-70058 5 Reviewed date:11/04/2023 03:53:13 PM Interpretation: Performing Lab:[facility] [place], [address] [facility], Phone - [phone], Director - [facility] Notes/Report: Test(s) 048419-Rjwqdguvxxvn, Total, LC/MS was developed and its performance characteristics determined by [facility]. It has not been cleared or approved by the Food and Drug Administration. Cholesterol, Total 109 100-199 mg/dL Triglycerides 179 0-149 mg/dL HDL Cholesterol 30 >39 mg/dL VLDL Cholesterol Kalyan 30 5-40 mg/dL LDL Chol Calc (NIH) 49 0-99 mg/dL Non-HDL Cholesterol 79 0-129 mg/dL Comp. Metabolic Panel (14)-3 88986 Reviewed date:11/04/2023 03:53:13 PM Interpretation: Performing Lab:[facility] [place], [address] [place] [address], [place], Phone - [phone], Director - [facility] Notes/Report: Test(s) 373755-Iunzbvdtvzvx, Total, LC/MS was developed and its performance characteristics determined by [facility]. It has not been cleared or approved by the Food and Drug Administration. Glucose 152 70-99 mg/dL BUN 21 8-27 mg/dL Creatinine 1.55 0.76-1.27 mg/dL eGFR 48 >59 mL/min/1.73 BUN/Creatinine Ratio 14 10-24 Sodium 142 134-144 mmol/L Potassium 4.0 3.5-5.2 mmol/L Chloride 103 96-106 mmol/L Carbon Dioxide, Total 22 20-29 mmol/L Calcium 9.9 8.6-10.2 mg/dL Protein, Total 6.8 6.0-8.5 g/dL Albumin 4.7 3.9-4.9 g/dL Globulin, Total 2.1 1.5-4.5 g/dL Bilirubin, Total 2.6 0.0-1.2 mg/dL Alkaline Phosphatase 69 44-121 IU/L AST (SGOT) 14 0-40 IU/L ALT (SGPT) 13 0-44 IU/L B-Type Natriuretic Peptide-1 26106 Reviewed date:11/04/2023 03:53:12 PM Interpretation: Performing Lab:[facility] [address], Phone - [phone], Director - [facility] Notes/Report: Test(s) 357156-Rojlhceorrfa, Total, LC/MS was developed and its performance characteristics determined by [facility]. It has not been cleared or approved by the Food and Drug Administration. B-Type Natriuretic Peptide 58.9 0.0-100.0 pg/m L Siemens ADVIA Centaur XP methodology Albumin/Creatinine Ratio,Uri ne-664027 Reviewed date:11/04/2023 03:53:12 PM Interpretation: Performing Lab:[facility] [address], Phone - [phone], Director - [facility] Notes/Report: Test(s) 423140-Umjwawokrjom, Total, LC/MS was developed and its performance characteristics determined by [facility]. It has not been cleared or approved by the Food and Drug Administration. Creatinine, Urine 87.4 Not Estab. mg/dL Albumin, Urine 115.7 Not Estab. ug/mL Alb/Creat Ratio 132 0-29 mg/g creat Normal: 0 - 29 Moderately increased: 30 - 300 Severely increased: >300 Vitamin D, 92-Wmwvthx-755604 Reviewed date:11/04/2023 03:53:12 PM Interpretation: Performing Lab:[facility] [address], Phone - [phone], Director - [facility] Notes/Report: Test(s) 727131-Vspjcchrelgc, Total, LC/MS was developed and its performance characteristics determined by [facility]. It has not been cleared or approved by the Food and Drug Administration. Vitamin D, 25-Hydroxy 52.4 30.0-100.0 ng/mL Vitamin D deficiency has been defined by the [place] of [employer] and an Endocrine Society practice guideline as a level of serum 25-OH vitamin D less than 20 ng/mL (1,2). The Endocrine Society went on to further define vitamin D insufficiency as a level between 21 and 29 ng/mL (2). 1. IOM ([place] of [employer]). 2010. Dietary reference intakes for calcium and D. [place]: The National Academies Press. 2. Darryl ANGELO, Geo MADDEN, Rebel TAMAYO, et al. Evaluation, treatment, and prevention of vitamin D deficiency: an Endocrine Society clinical practice guideline. JCEM. 2010; 96(7):1911-30. Testosterone, F Eqlib+T LC/M S-924771 Reviewed date:11/04/2023 03:53:12 PM Interpretation: Performing Lab:[facility] [place], [address] [place] [address], Phone - [phone], Director - [facility] Notes/Report: Test(s) 232740-Jmfjulejqzpo, Total, LC/MS was developed and its performance characteristics determined by [facility]. It has not been cleared or approved by the Food and Drug Administration. Testosterone, Total, LC/MS 400.6 264.0-916.0 ng /dL This [facility] LC/MS-MS method is currently certified by the CDC Hormone Standardization Program (HoSt). Adult male reference interval is based on a population of healthy nonobese males (BMI <30) between 19 and 39 years old. Hossein, et.al. JCEM 2017,102;9565-3619. PMID: 47095782. Testosterone, Free 17.15 5.00-21.00 ng/dL % Free Testosterone 4.28 1.50-4.20 % Prostate-Specific Ag-243533 Reviewed date:11/04/2023 03:53:12 PM Interpretation: Performing Lab:[facility] [place], [address] [place] [address], [place], Phone - [phone], Director - [facility] Notes/Report: Test(s) 965146-Vkidoxpcyoli, Total, LC/MS was developed and its performance characteristics determined by [facility]. It has not been cleared or approved by the Food and Drug Administration. Prostate Specific Ag 0.9 0.0-4.0 ng/mL Gretta ECLIA methodology. . According to the [place] [employer], Serum PSA should decrease and remain at undetectable levels after radical prostatectomy. The AUA defines biochemical recurrence as an initial PSA value 0.2 ng/mL or greater followed by a subsequent confirmatory PSA value 0.2 ng/mL or greater. Values obtained with different assay methods or kits cannot be used interchangeably. Results cannot be interpreted as absolute evidence of the presence or absence of malignant disease. CBC With Differential/Platel et-[id number] Reviewed date:11/04/2023 03:53:12 PM Interpretation: Performing Lab:[facility] [place], [address] [facility], [place], Phone - [phone], Director - Jesus Notes/Report: Test(s) 682806-Onlhechdrqlj, Total, LC/MS was developed and its performance characteristics determined by [facility]. It has not been cleared or approved by the Food and Drug Administration. WBC 7.0 3.4-10.8 x10E3/uL RBC 6.50 4.14-5.80 x10E6/uL Hemoglobin 17.3 13.0-17.7 g/dL Hematocrit 53.9 37.5-51.0 % MCV 83 79-97 fL MCH 26.6 26.6-33.0 pg MCHC 32.1 31.5-35.7 g/dL RDW 16.8 11.6-15.4 % Platelets 105 150-450 x10E3/uL Neutrophils 66 Not Estab. % Lymphs 20 Not Estab. % Monocytes 8 Not Estab. % Eos 4 Not Estab. % Basos 1 Not Estab. % Neutrophils (Absolute) 4.7 1.4-7.0 x10E3/uL Lymphs (Absolute) 1.4 0.7-3.1 x10E3/uL Monocytes(Absolute) 0.5 0.1-0.9 x10E3/uL Eos (Absolute) 0.2 0.0-0.4 x10E3/uL Baso (Absolute) 0.1 0.0-0.2 x10E3/uL Immature Granulocytes 1 Not Estab. % Immature Grans (Abs) 0.0 0.0-0.1 x10E3/uL Urinalysis, Complete-[id number] Reviewed date:11/04/2023 03:53:12 PM Interpretation: Performing Lab:[facility] [place], [address], [place], Phone - [phone], Director - Jesus Notes/Report: Test(s) 693179-Gokzsyhehnej, Total, LC/MS was developed and its performance characteristics determined by [facility]. It has not been cleared or approved by the Food and Drug Administration. Test(s) 388335-Ueryalnlftyg, Total, LC/MS was developed and its performance characteristics determined by [facility]. It has not been cleared or approved by the Food and Drug Administration. Specific [place] >=1.030 1.005-1.030 pH 5.5 5.0-7.5 Urine-Color Yellow Yellow Appearance Clear Clear WBC Esterase Negative Negative Protein 2+ Negative/Trace Glucose 3+ Negative Ketones Negative Negative Occult Blood Negative Negative Bilirubin Negative Negative Urobilinogen,Semi-Qn 0.2 0.2-1.0 mg/dL Nitrite, Urine Negative Negative Microscopic Examination See below: Micr oscopic was indicated and was performed. WBC 0-5 0 - 5 /hpf RBC None seen 0 - 2 /hpf Epithelial Cells (non renal) 0-10 0 - 10 /hpf Casts None seen None seen /lpf Bacteria None seen None seen/Few Hemoglobin A1C Reviewed date:10/12/2023 08:26:42 AM Interpretation: Performing Lab: Notes/Report: [facility] ([facility]), [facility] Lot: [id number] Hemoglobin A1C Reviewed date:08/05/2023 08:27:21 AM Interpretation: Performing Lab: Notes/Report: [facility] 2 ([facility] 2), [facility] Lot: [id number] PDF Report Reviewed date:11/04/2023 03:53:13 PM Interpretation: Performing Lab:[facility] [place], [address] [place] [address] Avenue, [place], Phone - [phone], Director - Jesus Notes/Report: Test(s) 284196-Ofinjklvsdpf, Total, LC/MS was developed and its performance characteristics determined by [facility]. It has not been cleared or approved by the Food and Drug Administration. Reason For Referral Reason faxed Diagnosis 1 Obstructive sleep ap shubham (adult) (pediatric) (G47.33) Referral Organization [facility] Referring Provider First Name Shana Referring Provider Last Name Luis Fernando Referring Provider Speciality Internal M edicine Referred Provider Casey Mckeon Referred Provider Specialty Sleep Medici ne General Notes Hamida REZA 03/31 04:17:31 PM >faxed Referral Priority Routine Medications Medication SIG (Take, Route, Frequency, Duration) Notes Start Date End Date Status Vitamin D3 25 MCG (1000 UT) 1 tablet Orally Once a day for 90 days Active Venlafaxine HCl ER 150 MG TAKE 1 CAPSULE BY MOUTH ONCE DAILY WITH FOOD for 90 Active Ketoconazole 2 % USE 1 APPLICATION EXTERNALLY TWICE A DAY FOR 28 DAYS for 28 Active Ozempic (1 MG/DOSE) 4 MG/3ML 1 mg Subcutaneous Once a Week 04/09/2024 Active Rosuvastatin Calcium 40 MG TAKE 1 TABLET BY MOUTH DAILY for 90 Active Carvedilol 12.5 MG TAKE 1 TABLET BY JESSICA TH TWICE DAILY for 90 days Active Tamsulosin HCl 0.4 MG TAKE 1 CAPSULE BY MOUTH ONCE DAILY 1/2 HOUR FOLLOWING THE SAME MEAL EACH DAY for 90 Active Flonase 50 MCG/ACT INHALE 2 SPRAYS INTO EACH NOSTRIL DAILY. for 30 Active Entresto 97-103 MG 1 tablet Orally Twic e a day for 90 Active Pregabalin 100 MG 1 capsule Orally Twi ce a Day for 30 days 06/08/2024 10/06/2024 Active Zolpidem Tartrate 10 MG 1 tablet at bedt maribel Orally Once a Day as needed for 90 days 07/12/2024 01/08/2025 Active Farxiga 10 MG TAKE 1 TABLET BY JESSICA TH EVERY DAY Orally Once a day for 90 days 2025 Active Pentoxifylline ER 400 MG TAKE 1 TABLET B Y MOUTH TWICE DAILY WITH MEALS for 90 Active Testosterone 20.25 MG/ACT (1.62%) 4 pump to skin in the morning to shoulder, upper arms Transdermal Once a day for 30 days 05/21/2024 Active Imodium A-D 2 MG 1 tablet as needed Orally two times a day for 30 days Active Eliquis 5 MG 1 Tablet Orally Twic e a day for 90 days Active Immunizations Vaccine Route Administration Date Status Comme nts *Influenza, High Dose Seasonal, Quadrivatent Unknown 12/07/2021 Administered *Influenza, High Dose Seasonal, Quadrivatent Unknown 12/10/2022 Administered *Xnxlayjta-Kdrxqhs-Bo gh Dose-65+ Unknown 12/06/2023 Administered *Influenza-Medicare-A S IM Intramuscular 12/12/2018 Administered *Pneumococcal polysaccharide PPV23 IM Intramuscular 09/22/2021 Administered COVID COMCLAUS Pfizer Unknown 12/06/2023 Administered COVID Spikevax Moderna Unknown 12/10/2022 Administered COVID-19 Moderna BiValent Booster Unknown 12/07/2021 Administered VUYOQ-32-Iupuddf Vaccine Unknown 05/26/2020 Administered TBNTA-97-Lpfsmel Vaccine Unknown 06/23/2020 Administered CTLJQ-73-Bqqclzu Vaccine Unknown 12/25/2020 Administered Influenza Unknown 11/29/2015 Administered Est at Pharmacy Influenza Unknown 11/06/2017 Administered Influenza Unknown 12/17/2019 Administered Influenza Unknown 12/03/2020 Administered Influenza, seasonal, injectable (split), for 3 yrs and up IM Intramuscular 11/06/2017 Administered Mfd by [employer] Influenza-Afluria (IIV4) IM Intramuscular 11/29/2016 Administered Pneumococcal polysaccharide PCV 13 Unknown 09/23/2020 Administered Pneumococcal polysaccharide PPV23 Unknown 06/27/2007 Administered Td (adult) preservative free Unknown 12/29/1993 Administered Td (adult) preservative free Unknown 06/04/2010 Administered Td (adult) preservative free IM Intramuscular 09/22/2020 Administered Social History Tobacco Use: Social History Observation [...] non-user Ex -very heavy cigarette smoker (40+/day) Problems Problem Type SNOMED Code ICD Code Onset Dates Problem Status W/U Status Risk Notes Problem Thrombophilia (264554875) 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) Active confirmed Problem Thrombocytopenia (422407248) Thrombocytopenia, unspecified (D69.6) Active confirmed Problem Diabetic renal disease (292174913) Type 2 diabetes mellitus with diabetic chronic kidney disease (E11.22) Active confirmed Problem Testicular hypofunction (665561526) Testicular hypofunction (E29.1) Active confirmed Problem Vitamin D deficiency (70231599) Vitamin D deficiency, unspecified (E55.9) Active confirmed Problem Mixed hyperlipidemia (773069722) Mixed hyperlipidemia (E78.2) Active confirmed Problem Adjustment disorder with anxiety (08741051) Adjustment disorder with anxiety (F43.22) Active confirmed Problem Obstructive sleep apnea syndrome (93305591) Obstructive sleep apnea (adult) (pediatric) (G47.33) Active confirmed Problem Hypertensive heart AND chronic kidney disease with congestive heart failure (43712789343940) Hypertensive heart and chronic kidney disease with heart failure and stage 1 through stage 4 chronic kidney disease, or unspecified chronic kidney disease (I13.0) Active confirmed Problem Atherosclerotic heart disease of [place] coronary artery without angina pectoris (191851151681425) Atherosclerotic heart disease of [place] coronary artery without angina pectoris (I25.10) Active confirmed Problem Dilated cardiomyopathy (516852754) Dilated cardiomyopathy (I42.0) Active confirmed Problem Paroxysmal atrial fibrillation (603917913) Paroxysmal atrial fibrillation (I48.0) Active confirmed Problem Chronic systolic heart failure (226884851) Chronic systolic (congestive) heart failure (I50.22) Active confirmed Problem Derangement of anterior horn of medial meniscus (7251433) Derangement of anterior horn of medial meniscus due to old tear or injury, left knee (M23.212) Active confirmed Problem Induratio penis plastica (8292677) Induration penis plastica (N48.6) Active confirmed Problem Long-term current use of anticoagulant (499293535) terminal computer operator (current) use of anticoagulants (Z79.01) Active confirmed Problem Automatic implantable cardiac defibrillator in situ (821113663) Presence of automatic (implantable) cardiac defibrillator (Z95.810) Active confirmed Problem History of polyp of colon (132279560) Personal history of colonic polyps (Z86.010) Active confirmed Problem COVID19 RICCARDO-Viru s Identified (U07.1) Active confirmed Problem Chronic kidney disease stage 3A (disorder) (960105050) Chronic kidney disease, stage 3a (N18.31) Active confirmed Problem Chronic kidney disease stage 3B (disorder) (976164480) Chronic kidney disease, stage 3b (N18.32) Active confirmed Problem Age-related nuclear cataract of right eye (798062524799059) Age-related nuclear cataract, right eye (H25.11) Problem resolved confirmed Problem Age-related nuclear cataract of left eye (272523532953476) Age-related nuclear cataract, left eye (H25.12) Problem resolved confirmed Vital Signs Heart Rate 94 /min 04/09/2024 Temperature 95.2 degrees Fahrenheit 04/09/2024 Blood pressure diastolic 66 mm Hg 04/09/2024 Oximetry 96 % 04/09/2024 Height 70 in 04/09/2024 Blood pressure systolic 116 mm Hg 04/09/2024 Weight 202 lbs 04/09/2024 BMI 28.98 kg/m2 04/09/2024 Encounters Encounter Location Date Provider Diagnosis Shana Gould MD [address] [id number] 08/03/2023 Shana Gould Type 2 diabetes mellitus with [...] thrombophilia D68.69 ; Atherosclerotic heart disease of [place] coronary artery without angina pectoris I25.10 ; Mixed hyperlipidemia E78.2 ; Obstructive sleep apnea (adult) (pediatric) G47.33 ; Testicular hypofunction E29.1 ; Vitamin D deficiency, unspecified E55.9 and Secondary polycythemia D75.1 Shana Gould MD [address] [id number] 10/11/2023 Shana Gould Hypertensive heart a nd chronic kidney disease with heart failure and stage 1 through stage 4 chronic kidney disease, or unspecified chronic kidney disease I13.0 ; Encounter for general adult medical examination without abnormal findings Z00.00 ; Type 2 diabetes mellitus with diabetic chronic kidney disease E11.22 ; Chronic kidney disease, stage 3a N18.31 ; Dilated cardiomyopathy I42.0 ; Chronic systolic (congestive) heart failure I50.22 ; Paroxysmal atrial fibrillation I48.0 ; Other thrombophilia D68.69 ; Atherosclerotic heart disease of [place] coronary artery without angina pectoris I25.10 ; Mixed hyperlipidemia E78.2 ; Obstructive sleep apnea (adult) (pediatric) G47.33 ; Testicular hypofunction E29.1 ; Secondary polycythemia D75.1 ; Vitamin D deficiency, unspecified E55.9 ; Encounter for screening for malignant neoplasm of colon Z12.11 ; Encounter for screening for malignant neoplasm of prostate Z12.5 ; Encounter for screening for cardiovascular disorders Z13.6 ; Encounter for immunization Z23 ; Encounter for antibody response examination Z01.84 and Encounter for screening for other viral diseases Z11.59 Shana Gould MD [address] [id number] 12/21/2023 Shana Gould Type 2 diabetes mellitus with [...] thrombophilia D68.69 ; Atherosclerotic heart disease of [place] coronary artery without angina pectoris I25.10 ; Mixed hyperlipidemia E78.2 ; Obstructive sleep apnea (adult) (pediatric) G47.33 ; Testicular hypofunction E29.1 and Vitamin D deficiency, unspecified E55.9 Shana Gould MD [address] [id number] 04/09/2024 Shana Gould Type 2 diabetes mellitus [...] thrombophilia D68.69 ; Atherosclerotic heart disease of [place] coronary artery without angina pectoris I25.10 ; Mixed hyperlipidemia E78.2 ; Obstructive sleep apnea (adult) (pediatric) G47.33 ; Testicular hypofunction E29.1 and Vitamin D deficiency, unspecified E55.9 Shana Gould MD [address] [id number] 09/27/2023 Shana Gould Testicular hypofunct ion E29.1 Shana Gould MD [address] [id number] 12/21/2023 Shana Gould MD [address] [id number] 08/30/2023 Shana Gould MD [address] [id number] 08/30/2023 Shana Gould MD [address] [id number] 09/27/2023 Shana Gould Testicular hypofunct ion E29.1 Shana Gould MD [address] [id number] 10/17/2023 Shana Gould MD [address] [id number] 12/23/2023 Shana Gould MD [address] [place] [address] [id number] 01/14/2024 Shana Gould MD [address] [id number] 02/08/2024 Shana Gould MD [address] [id number] 04/20/2024 Edwige Gould MD [address] [id number] 04/20/2024 Edwige Gould MD [address] [id number] 05/15/2024 Shana Gould MD [address] [id number] 05/19/2024 Shana Gould Testicular hypofunct ion E29.1 Shana Gould MD [address] [id number] 05/23/2024 Shana Gould MD [address] [id number] 06/07/2024 Shana Gould MD [address] [id number] 06/08/2024 Shana Gould MD [address] [id number] 07/11/2024 Shana Gould Assessments Encounter Date Diagnosis (ICD Code) Assessment Notes Treatment Notes Treatment Clinical Notes Section Notes 08/03/2023 Type 2 diabetes mellitus with diabetic chronic kidney disease (ICD-10 - E11.22) His A1c is not ideal. Recommend GLP therapy with Ozempic not only for diabetes control but also for cardiovascular risk reduction. However he says he cannot afford this financially and does not wish to use this therapy. He would like to continue on metformin. Even though this does not have any significant cardiac benefits it may afford him some diabetes control. Can increase dose as tolerated 09/27/2023 Testicular hypofunction (ICD-10 - E29.1) 09/27/2023 Testicular hypofunction (ICD-10 - E29.1) 10/11/2023 Hypertensive heart and chronic kidney disease with heart failure and stage 1 through stage 4 chronic kidney disease, or unspecified chronic kidney disease (ICD-10 - I13.0) Stable with current medical therapy. Continue same 10/11/2023 Encounter for general adult medical examination without abnormal findings (ICD-10 - Z00.00) General healthcare up-to-date. Check routine labs. Health care proxy and MOLST form package given for review and completion 12/21/2023 Type 2 diabetes mellitus with diabetic chronic kidney disease (ICD-10 - E11.22) Improved with current medical therapy. He is tolerating his GLP therapy. Can increase as tolerated. At this point given his significant improvement in his A1c and weight loss recommend discontinue metformin and continue combination therapy with GLP and SGLT2 12/21/2023 Hypertensive heart and chronic kidney disease with heart failure and stage 1 through stage 4 chronic kidney disease, or unspecified chronic kidney disease (ICD-10 - I13.0) Stable at present. Continue current medical therapy. As discussed as he continues to lose weight he may become hypotensive and at that point medical therapy can be readjusted and reduced 04/09/2024 Type 2 diabetes mellitus with diabetic [...] his Ozempic and has further weight loss 05/19/2024 Testicular hypofunction (ICD-10 - E29.1) 04/09/2024 Chronic kidney disease, stage 3a (ICD-10 - N18.31) Stable at present with estimated GFR in the 40s. Continue control of comorbidities of hypertension and diabetes 12/21/2023 Chronic kidney disease, stage 3a (ICD-10 - N18.31) Stable with estimated GFR in the 40s. Continue control comorbidity of hypertension and diabetes 10/11/2023 Type 2 diabetes mellitus with diabetic chronic kidney disease (ICD-10 - E11.22) Diabetes is not ideal. Recommend GLP therapy but he says he cannot afford this. He cannot afford additional medication. We can try to see if coupon could support will help facilitate financial support so that he can use GLP therapy 08/03/2023 Hypertensive heart and chronic kidney disease with heart failure and stage 1 through stage 4 chronic kidney disease, or unspecified chronic kidney disease (ICD-10 - I13.0) Stable with current medical therapy. Continue same 08/03/2023 Chronic kidney disease, stage 3a (ICD-10 - N18.31) Stable with estimated GFR in the high 40s to low 50s. Continue control of comorbidity of hypertension and diabetes 08/03/2023 Dilated cardiomyopathy (ICD-10 - I42.0) Stable with current medical therapy with slightly depressed ejection fraction in the 40s. Continue current therapy to maintain control 12/21/2023 Dilated cardiomyopathy (ICD-10 - I42.0) Stable and unchanged. He had an echo that showed ejection fraction in the 40s. He has had follow-up with cardiology without any change in medical therapy 04/09/2024 Dilated cardiomyopathy (ICD-10 - I42.0) Stable and unchanged. His prior echocardiogram showed an ejection fraction of 40%. Continue current disease modifying therapy of Entresto 10/11/2023 Chronic kidney disease, stage 3a (ICD-10 - N18.31) Stable estimated GFR in the 40s. Continue control comorbidity of hypertension and diabetes 12/21/2023 Chronic systolic (congestive) heart failure (ICD-10 - I50.22) Stable with current medical therapy. Continue same. Hopefully as he continues and increase his GLP therapy he will have better control of his heart failure as well. 04/09/2024 Chronic systolic (congestive) heart failure (ICD-10 - I50.22) Symptomatically stable at present. Continue current medical therapy 10/11/2023 Dilated cardiomyopathy (ICD-10 - I42.0) Stable with depressed ejection fraction in the 40s. Continue current medical therapy to maintain control 08/03/2023 Chronic systolic (congestive) heart failure (ICD-10 - I50.22) Symptomatically stable with slightly elevated proBNP but improving. Continue current medical therapy. He would benefit from GLP therapy but does not wish to start this due to cost issues 08/03/2023 Paroxysmal atrial fibrillation (ICD-10 - I48.0) He is paced on exam. Continue chronic anticoagulation. 10/11/2023 Chronic systolic (congestive) heart failure (ICD-10 - I50.22) Symptomatically stable. His BNP was slightly improved. Continue current therapy and recheck status. Recommend GLP therapy if he is able to procure this to help facilitate control of heart failure as well 04/09/2024 Paroxysmal atrial fibrillation (ICD-10 - I48.0) He is paced on exam. Continue chronic anticoagulation. 12/21/2023 Paroxysmal atrial fibrillation (ICD-10 - I48.0) He is paced on exam. Continue chronic anticoagulation. 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 Continue chronic anticoagulation. 12/21/2023 Other thrombophilia (ICD-10 - D68.69) He continues on anticoagulation due to increased risk for thromboembolic events based on an elevated CHADS2 score in the setting of atrial fibrillation 08/03/2023 Other thrombophilia (ICD-10 - D68.69) He continues on anticoagulation due to increased risk for thromboembolic events based on an elevated CHADS2 score in the setting of atrial fibrillation 08/03/2023 Atherosclerotic heart disease of [place] coronary artery without angina pectoris (ICD-10 - I25.10) Stable without any progressive symptoms. Continue to control comorbidities. He would benefit from GLP therapy with Ozempic but he says he cannot afford this. 10/11/2023 Other thrombophilia (ICD-10 - D68.69) He continues on anticoagulation due to increased risk for thromboembolic events based on an elevated CHADS2 score in the setting of atrial fibrillation 12/21/2023 Atherosclerotic heart disease of [place] coronary artery without angina pectoris (ICD-10 - I25.10) Stable without any progressive symptoms. Continue control comorbidities. Continue GLP-1 for cardiovascular risk reduction as well 04/09/2024 Atherosclerotic heart disease of [place] coronary artery without angina pectoris (ICD-10 - I25.10) Stable without any progressive symptoms. Continue GLP therapy for cardiovascular risk reduction 04/09/2024 Mixed hyperlipidemia (ICD-10 - E78.2) Controlled with LDL less than 70. Continue current therapy 12/21/2023 Mixed hyperlipidemia (ICD-10 - E78.2) Controlled with current medical therapy with LDL less than 70. 10/11/2023 Atherosclerotic heart disease of [place] coronary artery without angina pectoris (ICD-10 - I25.10) Stable without progressive symptoms. Continue control comorbidities. Recommend GLP therapy as adjunct therapy for cardiovascular risk reduction 08/03/2023 Mixed hyperlipidemia (ICD-10 - E78.2) Controlled with current medical therapy. Continue same 08/03/2023 Obstructive sleep apnea (adult) (pediatric) (ICD-10 - G47.33) He is not using his CPAP. He says machine is old. He was not able to get a new machine due to financial issues. Recommend reevaluation for new machine but he does not wish to incur any extra financial expense 10/11/2023 Mixed hyperlipidemia (ICD-10 - E78.2) Controlled with current medical therapy with LDL less than 70. 12/21/2023 Obstructive sleep apnea (adult) (pediatric) (ICD-10 - G47.33) Continues to use CPAP with his old machine. He cannot afford a new machine due to financial issues 04/09/2024 Obstructive sleep apnea (adult) (pediatric) (ICD-10 - G47.33) He needs a new CPAP device. Recommend reevaluation for sleep study 04/09/2024 Testicular hypofunction (ICD-10 - E29.1) Stable on prior labs as reviewed. Recheck status 12/21/2023 Testicular hypofunction (ICD-10 - E29.1) He does not feel as well with the current formulation. He thinks he did better with the 1.62% formulation. Can resume same. 10/11/2023 Obstructive sleep apnea (adult) (pediatric) (ICD-10 - G47.33) Continues to use CPAP with his old machine. He cannot afford a new machine due to financial issues 08/03/2023 Testicular hypofunction (ICD-10 - E29.1) Fair control on prior labs as reviewed. 08/03/2023 Vitamin D deficiency, unspecified (ICD-10 - E55.9) Fair control on prior labs as reviewed. Continue vitamin D supplementation for goal level of 50+ 10/11/2023 Testicular hypofunction (ICD-10 - E29.1) Fair control on prior labs as reviewed. He continues on topical replacement therapy. Recheck status and adjust dose if indicated 12/21/2023 Vitamin D deficiency, unspecified (ICD-10 - E55.9) Fair control and prior labs reviewed. Continue vitamin D supplementation for goal level of 30+ and if possible 50+ 04/09/2024 Vitamin D deficiency, unspecified (ICD-10 - E55.9) Stable on prior labs reviewed. Recheck status and would consider vitamin D supplementation for goal level of 30+ and if possible 50+ 10/11/2023 Secondary polycythemia (ICD-10 - D75.1) Evaluation was unremarkable. This is most likely due to his sleep apnea which is not adequately controlled. He is trying to get back to sleep management but at this appointment has been rescheduled 10/11/2023 Vitamin D deficiency, unspecified (ICD-10 - E55.9) Fair control and prior labs reviewed. Continue vitamin D supplementation for goal level of 30+ and if possible 50+ 08/03/2023 Secondary polycythemia (ICD-10 - D75.1) Evaluation for primary cause is unremarkable. This is most likely a secondary cause from his sleep apnea that is not adequately controlled. Recommend control of his sleep apnea. 10/11/2023 Encounter for screening for malignant neoplasm of colon (ICD-10 - Z12.11) Up-to-date on colon cancer screening 10/11/2023 Encounter for screening for malignant neoplasm of prostate (ICD-10 - Z12.5) Can check PSA has prostate cancer screening realizing the limitation of this test as a screening test 10/11/2023 Encounter for screening for cardiovascular disorders (ICD-10 - Z13.6) Blood pressure is stable. Can check for comorbidity of hyperlipidemia and hyperglycemia to further assess risk. 10/11/2023 Encounter for immunization (ICD-10 - Z23) Vaccines up to date 10/11/2023 Encounter for antibody response examination (ICD-10 - Z01.84) He would be considered immune to rubeola by virtue of his age 0810/11/2023 Encounter for screening for other viral diseases (ICD-10 - Z11.59) Can screen for hepatitis C as per general recommendation 08/03/2023 Other This note was created with voice dictation recognition software and may contain errors of grammar and syntax. Also labs were reviewed with patient. 10/11/2023 Other This note was created with voice dictation recognition software and may contain errors of grammar and syntax. Also labs were reviewed with patient. 12/21/2023 Other This note was created with voice dictation recognition software and may contain errors of grammar and syntax. Also labs were reviewed with patient. 04/09/2024 Other This note was created with voice dictation recognition software and may contain errors of grammar and syntax. Also labs were reviewed with patient. Plan Of Treatment Pending Test Test Name Order Date 25OH VITAMIN D 09/22/2020 CITRATED PLATELET COUNT 09/22/2021 COMPLETE CBC WITH DIFF 09/20/2018 COMPLETE CBC WITH DIFF 09/22/2020 COMPLETE CBC WITH DIFF 04/10/2018 COMPLETE URINALYSIS 04/10/2018 COMPLETE URINALYSIS 09/22/2020 COMPREHENSIVE METABOLIC PANEL 09/22/2020 COMPREHENSIVE METABOLIC PANEL 04/11/2019 COMPREHENSIVE METABOLIC PANEL 04/15/2022 COMPREHENSIVE METABOLIC PANEL 08/13/2018 COMPREHENSIVE METABOLIC PANEL 09/20/2018 COMPREHENSIVE METABOLIC PANEL 08/08/2018 COMPREHENSIVE METABOLIC PANEL 04/10/2018 CREAT CLEARANCE 09/20/2018 FREE T4 09/20/2018 FREE TESTOSTERONE 09/22/2020 FREE TESTOSTERONE 09/20/2018 HEMOGLOBIN A1C,DIAGNOSTIC 04/11/2019 HEMOGLOBIN A1C,DIAGNOSTIC 04/10/2018 LIPID PANEL W REFLEX TO DLDL 04/11/2019 LIPID PANEL W REFLEX TO DLDL 09/22/2020 MAGNESIUM 04/15/2022 PROBNP 09/20/2018 PROBNP 08/13/2018 PROBNP 09/22/2020 PROBNP 04/11/2019 PROBNP 08/08/2018 PROBNP 04/10/2018 PSA 09/22/2020 TESTOSTERONE 09/22/2020 TESTOSTERONE 04/06/2017 TESTOSTERONE 02/13/2016 TSH 09/20/2018 UREA CLEARANCE 09/20/2018 URINARY MICROALBUMIN 09/22/2020 URINARY MICROALBUMIN 04/10/2018 Xray: Knee Left (Standard, 4 Views) /07/2016 VITAMIN D, 25-HYDROXY 04/13/2022 VITAMIN D, 25-HYDROXY 09/22/2021 VITAMIN D, 25-HYDROXY 05/25/2021 VITAMIN D, 25-HYDROXY 01/26/2021 ANTI-HEPATITIS C W/RFLX HCV QNT 09/23/19 22 MMR (MEASLES, MUMPS, RUBELLA) IGG TITER 08/08/2018 Future Test Test Name Order Date COMPLETE URINALYSIS 10/16/2018 COMPREHENSIVE METABOLIC PANEL 10/16/2018 PROBNP 10/16/2018 Next Appt Details Provider Name:Shana Gould , 08/08/2024 01:00:00 PM, [address] [place] [address], [place] [address], [place], [place], [phone], Provider Name:Shana Gould , 10/18/2024 01:00:00 PM, [address] [place] [address], [place] [address], [place], [place], [phone], Insurance Providers Payer Name Payer Address Payer Phone Subscriber Number Group Number Insured Name Patient Relationship to Insured Coverage Start Date Coverage End Date [address] [id number] Bogdan Curtis Self - patient is the insured 0 MEDICARE [address] [place] [phone] [id number] Bogdan Curtis Self - patient is the insured 2 Medical (General) History Medical History History ICD Code Brachial neuritis or radiculitis NOS Dilated cardiomyopathy I42.0 Chronic systolic (congestive) heart fail ure I50.22 Chronic kidney disease, stage 2 (mild) N 18.2 Obstructive sleep apnea (adult) (pediatr ic) G47.33 Testicular hypofunction E29.1 Atherosclerotic heart diseas e of [place] coronary artery without angina pectoris I25.10 Paroxysmal atrial fibrillation I48.0 Type 2 diabetes mellitus with diabetic c hronic kidney disease E11.22 longterm (current) use of anticoagulant s Z79.01 Derangement of anterior horn of medial meniscus due to old tear or injury, left knee M23.212 Induration penis plastica N48.6 Personal history of colonic polyps Z86.0 10 Hypertensive heart and chron ic kidney disease with heart failure and stage 1 through stage 4 chronic kidney disease, or unspecified chronic kidney disease I13.0 Chronic kidney disease, stage 3 (moderat e) N18.3 Presence of automatic (implantable) card iac defibrillator Z95.810 Age-related nuclear cataract, right eye (resolved 09/22/2020) undefined Age-related nuclear cataract, left eye ( resolved 09/22/2020) Surgical History Surgery Date(Month/Year) LAD Angioplasty ICD insertion Appendectomy Inguinal Hernia Repair, RIGHT cataract-lens implants, LT 08/2019 cataract-lens implants, RT 08/2019 Hospitalization History Reason Date(Month/Year)
== END 2024-07-17 13:46 | disposition home or self-care (01) ==
LOC: HO.HOS 13:01
PROVIDERS: PCP Internal Medicine; Visit Provider Orthopaedic Surgery
DX: M25.511 Pain in right shoulder (principal); M25.512 Pain in left shoulder; M75.42 Impingement syndrome of left shoulder; M25.811 Other specified joint disorders, right shoulder
CPT/HCPCS: 20610; 99213

== ENCOUNTER 2024-07-17 13:11 | Outpatient (REF) | payer OTHER, MEDICARE, SELFPAY ==
--- NOTE | ~2024-07-17 | XR_ITS ---
EXAMINATION: X-ray shoulders, bilaterally. CLINICAL INFORMATION: Pain, right shoulder. TECHNIQUE: AP views in neutral internal rotation and Y-view projection both shoulders. COMPARISON: None FINDINGS: Sclerosis along the articular margins of acromioclavicular joints, bilaterally. No acute cortical disruption or malalignment. No lytic or blastic lesions. Pacemaker reservoir overlapping the left upper thorax/axillary region. Multilevel thoracic spondylosis. XR/XR Shoulder Mynor min 2V IMPRESSION: Degenerative changes, acromioclavicular joints. Electronically signed by: Nash Geiger MD 07/17/2024 01:33 PM EDT
== END 2024-07-17 13:12 | disposition home or self-care (01) ==
LOC: HO.HOSX 13:11
PROVIDERS: Visit Provider Orthopaedic Surgery
DX: M25.511 Pain in right shoulder (principal); M25.512 Pain in left shoulder; M19.012 Primary osteoarthritis, left shoulder; M19.011 Primary osteoarthritis, right shoulder
CPT/HCPCS: 20610; 73030; J1010; J2003

== ENCOUNTER → 2024-07-17 13:13 | Outpatient (BNV) | payer OTHER, MEDICARE, SELFPAY | PROVIDERS: Visit Provider Radiology Diagnostic Radiology | DX: M19.011 Primary osteoarthritis, right shoulder (principal); M19.012 Primary osteoarthritis, left shoulder | CPT/HCPCS: 73030 ==

== ENCOUNTER 2024-10-10 13:14 | Outpatient (AMB) | payer OTHER, MEDICARE, SELFPAY ==
[2024-10-10 13:18] VITALS: BMI 31.0
--- NOTE | 2024-10-10 13:18 | MHC.OFFVIS ---
Vital Signs 10/10/24 13:18 Height 5 ft 9 in Weight 210 lb BMI 31.0 Intake Visit Reasons: Bilateral knee pain Intake Note: Bogdan is a 69 year old male who presents with complaints of bilateral knee pains. He describes his pains as sharp in nature. He has tried Tylenol which gives him minimal relief. He is not able to take anti-inflammatory medicines because he is on Eliquis. He has tried physical therapy exercises which aggravated his pain. He wishes to hold off on surgery if at all possible. He has had cortisone injections in the past which gave him fairly good relief. Allergies No Known Allergies Allergy (Verified 10/10/24 13:19) Medication List - Last Reconciled 10/11/24 by Brad Jefferson MD apixaban (Eliquis) 2.5 mg PO BID carvedilol 3.125 mg PO Q12H dapagliflozin propanediol (Farxiga) 10 mg PO DAILY fluticasone furoate 27.5 mcg/actuation (Flonase Sensimist) 1 spray intranasal DAILY pentoxifylline ER 400 mg PO BID pregabalin (Lyrica) 25 mg PO DAILY rosuvastatin (Crestor) 5 mg PO DAILY sacubitril-valsartan 24-26 mg (Entresto) 1 tab PO BID semaglutide (Ozempic) 0.25 mg subcut QWEEK tamsulosin (Flomax) 0.4 mg PO BEDTIME testosterone 81 mg topical QAM venlafaxine 12.5 mg PO DAILY zolpidem mg PO PFSH Social History (Updated 04/05/23 @ 13:55 by Misti Montemayor CMA) Patient Tobacco Use Status: Never used Tobacco Current occupational status: retired and disabled Current occupation: rt hand Physical Exam Vital Signs: BMI result Body Mass Index 31.0 Const Other: Well-nourished well-developed very friendly male awake alert and oriented x3 in no acute distress Extrem Other: Bilateral lower extremity examination shows good capillary refill, no skin lesions noted, normal sensation light touch Bilateral knee examination shows minimal effusions, palpable crepitus with range of motion, pain with range of motion, no instability Office Procedures AMB Joint Injection/Aspiration Joint Injection/Aspiration Primary Site: left knee Prep: site was prepped using aseptic technique Injected: 40 mg of, DepoMedrol and 1% plain lidocaine Procedure: The patient tolerated the procedure well Coding - Large joint Procedure code (CPT) selection complete AMB Joint Injection/Aspiration Joint Injection/Aspiration Primary Site: right knee Prep: site was prepped using aseptic technique Injected: 40 mg of, DepoMedrol and 1% plain lidocaine Procedure: The patient tolerated the procedure well Coding - Large joint Procedure code (CPT) selection complete Results Reviewed Results Reviewed: X-rays of the patient's bilateral knees taken previously show joint space narrowing, subchondral sclerosis, no acute bony abnormalities Assessment & Plan Assessment & Plan (1) Arthritis of left knee: Code(s): M17.12 - Unilateral primary osteoarthritis, left knee Category: Medical (2) Arthritis of right knee: Code(s): M17.11 - Unilateral primary osteoarthritis, right knee Category: Medical (3) Pain in both knees: Code(s): M25.561 - Pain in right knee; M25.562 - Pain in left knee Plan Mr. Curtis presents with bilateral knee pains due to degenerative joint disease. The risks and benefits of bilateral knee cortisone injections were discussed at length with the patient. The patient wished to proceed. Tolerated the injections well. He will continue with his home exercise program. Will contact me prior to his follow-up appointment in 3 months should any questions or concerns arise. Feel free to call me at any time should questions regarding his orthopedic management arise. I spent 22 minutes in reviewing the patient's records and imaging studies, seeing the patient and documenting in the medical record. Orders: Orders AMB Joint Injection/Aspiration 10/10/24 M17.12 - Unilateral primary osteoarthritis, left knee AMB Joint Injection/Aspiration 10/10/24 M17.11 - Unilateral primary osteoarthritis, right knee Coding Level of Care Code Est Pt Level 3 (46922) Complex EM visit Add On G2211 Diagnoses Arthritis of left knee M17.12 Arthritis of right knee M17.11 Pain in both knees M25.561; M25.562 CPT Codes Coding - Large joint: 71619 - Large joint ([id number]) Coding - 51847 Large joint: 37916 - Large joint ([id number])
--- OUTSIDE RECORDS SUMMARY | 2024-10-10 13:44 | XMS_ITS | Clinical Summary ---
Author Organization [facility] Address [address] [place] [address] Care Team Providers Care Anesthesiologist Assistant Name Role Phone Shana Gould MD Primary [...] Fall Risk Assessment 06/05/2020 Influenza Vaccine (#1) 2024 8, 12/04/2015 RSV Adult > 60+ Yrs or (1 - 1-dose 75+ series) 06/05/2030 Hepatitis B Vaccines Aged Out No long er eligible based on patient's age to complete this topic RSV Ped < 20 months Aged Out No longe r eligible based on patient's age to complete this topic Insurance Payer Benefit Plan / Group Subscriber ID Effective Dates Phone Address [facility] [id number] 2019-Pr esent [address] [place] [address] [place] ONLY [id number] 2011-Pre sent [phone] [employer] [address] [facility] [place] [address] Medicare Care Teams Anesthesiologist Assistant Relationship Specialty Start Date End Date Shana Gould MD [address] [address] PCP - General Internal Medicine 09/24/16
--- OUTSIDE RECORDS SUMMARY | 2024-10-10 13:44 | XMS_ITS | Clinical Summary ---
Author Organization [facility] Address [address] [facility] [address] [place] [phone] Phone Care Team Providers Care Architecture Faculty Member Name Role Phone Kassandra Gould MD Primary Care Provider [phone] Joel Haddad MD Unavailable [phone] Allergies No known active allergies Medications loperamide (IMODIUM) 2 mg capsule 1 capsule Orally 8 time(s) a day Active sacubitriL-valsar rodriguez (ENTRESTO) 97-103 mg per tablet as directed Twice a day Active fluticasone propionate (FLONASE) 50 mcg/actuation nasal spray 1 spray in each nostril Nasally Once a day Active pregabalin (LYRICA) 100 MG capsule Orally Twice a day Active venlafaxine (EFFEXOR-XR) 150 MG 24 hr capsule 1 capsule with food Orally Once a day Active zolpidem (AMBIEN) 10 mg tablet Active tamsulosin (FLOMAX) 0.4 mg Cap Orally Active apixaban (ELIQUIS) 5 mg tablet Take 5 mg by mouth 2 (two) times a day. Active pentoxifylline (TRENTAL) 400 mg CR tablet Take 400 mg by mouth 2 (two) times a day. Active dapagliflozin (FARXIGA) 10 mg tablet Take 1 tablet by mouth. 0 Active rosuvastatin (CRESTOR) 40 MG tablet Take 40 mg by mouth daily. 1 Active carvedilol (COREG) 12.5 MG tablet Take 1 tablet (12.5 mg total) by mouth 2 (two) times a day with meals. 180 tablet 3 2 Active CHOLECALCIFEROL 25 mcg (1,000 unit) tablet Take 1,000 Units by mouth daily. 2 Active testosterone (ANDROGEL) 20.25 mg/1.25 gram (1.62 %) transdermal gel pump APPLY 4 PUMPS TO AFFECTED ON SKIN IN THE MORNING ONCE A DAY Active OZEMPIC 1 mg/dose (4 mg/3 mL) subcutaneous injection pen Inject 1 mg under the skin once a week. 5 Active ketoconazole 2 % cream APPLY EXTERNALLY TWICE A DAY FOR 28 DAYS 5 Active Active Problems Problem Noted Date Diagnosed Date Paroxysmal atrial fibrillation 01/12/2021 Assessment & Plan (06/01/2024 3:17 PM EDT): He has a history for paroxysmal atrial fibrillation. He is rate controlled here in office today 84 bpm. He is on Eliquis 5 mg twice daily for anticoagulation Ischemic cardiomyopathy 08/02/2017 Overview (08/02/2017): Anterior infarct 2017 Assessment & Plan (06/01/2024 3:17 PM EDT): S/p revascularization s/p single-chamber [facility] defibrillator. Last interrogation showed a brief run of nonsustained VT. Normal device function. He is completely asymptomatic. He will remain on his medications including carvedilol 12.5 mg twice daily, Farxiga 10 mg daily, Entresto 97-103 mg twice daily. He is euvolemic on exam and shows no signs of heart failure at this time Assessment & Plan (01/26/2022 3:04 PM EST): He is status post remote revascularization and placement of a single-chamber [facility] defibrillator. Recent remote check was satisfactory. We will continue long Eliquis and Plavix as well as clopidogrel, Farxiga, Crestor and Entresto as well as spironolactone. He has not had any chest pain and is doing well overall. Assessment & Plan (07/07/2020 2:12 PM EDT): Anterior infarct 2017 status post [facility] ICD/pacemaker implantation. He is asymptomatic at this time. He is on apixaban 5 mg twice daily for anticoagulation for atrial fibrillation, amiodarone rate control 200 mg daily with carvedilol 6.25 mg daily, for lactone 25 mg daily, furosemide 40 mg daily, and Entresto 97-103 mg twice daily. He will remain on these medications. Stented coronary artery 08/02/2017 Overview (08/02/2017): LAD 2006 Assessment & Plan (06/01/2024 3:17 PM EDT): We will continue to optimize his cardiac risk factors. He is encouraged follow heart healthy mangling low sodium and exercise which he is not doing currently. LDL goal less than 70 mg/dL which according to his labs drawn at his PCP office is at goal. BP is little elevated today 140/90. SBP goal less than 130/80. Assessment & Plan (07/07/2020 2:11 PM EDT): Stent to LAD 2006. He is on carvedilol 6.25 mg twice daily Mixed hyperlipidemia 08/02/2017 Assessment & Plan (06/01/2024 3:17 PM EDT): Continue rosuvastatin 40 mg daily Assessment & Plan (07/07/2020 2:11 PM EDT): PCP follows lipid profile. He will continue atorvastatin 80 mg daily. Orthostatic hypotension 08/02/2017 ICD (implantable cardioverter-defibrillator) in place 08/02/2017 Overview (08/02/2017): [facility] Encounters Date Type Department Care Team Description 10/09/2024 Orders Only [facility] [address], [address] [place] [address] Manuela Martini MD 09/21/2024 Orders Only [facility] [address], [address] [place] [address] Manuela Martini MD 09/11/2024 Orders Only [facility] [address], [address] [place] [address] Manuela Martini MD 07/17/2024 Orders Only [facility] [address], [address] [place] [address] ProviderManuela MD from Last 3 Months Immunizations Immunization Administration Dates Next Due COVID-19 (Pre-12/20) Moderna Vaccine, mRNA, PF 0 05/26/2020 Influenza Quadrivalent Preservative Free IM 10/2017,12/04/2015 Social History Tobacco Use Types Packs/Day Years Used Date Smoking Tobacco: Former Cigarettes Q uit: 1987 Smokeless Tobacco: Never Tobacco Cessation:Counseling Given: Not Answered Alcohol Use Standard Drinks/Week Comments No 0 (1 standard drink = 0.6 oz pur e alcohol) Education Answer Date Recorded Are you interested in more education? Not on kerri e 06/25/2022 Are you concerned about learning? Not on file 06/25/2022 No 06/25/2022 No 06/25/2022 Digital Access Answer Date Recorded No 07/26/2022 No 07/26/2022 Reliable internet access at home? Not on file 07/26/2022 Device with a working camera? Not on file Sex and Gender Information Value Date Recorded Sex Assigned at Not on file Legal Sex Male 9:55 PM EDT Gender Identity Not on file Sexual Orientation Not on file Last Filed Vital Signs Vital Sign Reading Time Taken Comments Blood Pressure 140/90 06/01/2024 3:00 PM EDT Pulse 84 06/01/2024 3:00 PM EDT Temperature - - Respiratory Rate - - Oxygen Saturation 96% 06/01/2024 3:00 PM EDT Inhaled Oxygen Concentration - - Weight 92.5 kg (204 lb) 06/01/2024 3:00 PM EDT Height 175.3 cm (5' 9.02 ) 06/01/2024 3:00 PM ED T Body Mass Index 30.11 06/01/2024 3:00 PM EDT Plan of Treatment Upcoming Encounters Date Type Department Care Team (Late st Contact Info) Description 12/04/2024 1:00 PM EDT Office Visit [facility] [address], [address] [place] [address] Hardeep Yulisa Torres, DNP [address] [facility], [address] [place] [address] [email or web address] Maintenance Due Date Last Done Comments Adult Td,Tdap Booster 1955 CREATININE LEVEL 1955 DEPRESSION SCREENING 1967 HEPATITIS C SCREENING 06/05/1973 COLOGUARD 06/05/2000 COLONOSCOPY 06/05/2000 COLORECTAL CANCER SCREENING 06/05/2000 FIT TEST 06/05/2000 FOBT 06/05/2000 SIGMOIDOSCOPY 06/05/2000 VIRTUAL COLONOSCOPY 06/05/2000 PNEUMOCOCCAL VACCINES (50+ years) (1 of 1 - PCV) 06/05/2005 ZOSTER VACCINES (1 of 2) 06/05/2005 RSV VACCINE (1 - Risk 60-74 years 1-dose series) 2015 ABDOMINAL AORTIC ANEURYSM (AAA) SCREENING 06/05/2020 COVID-19 VACCINE (2 - 2023-2 5 season) 2023 05/26/2020 LIPID PANEL 04/11/2024 04/11/2019, 02/16/2016 SMOKING Hx and SMOKELESS TOBACCO SCREENING 11/29/2024 11/30/2023 SCREENING FOR DIABETES 01/11/2025 01/11/2022 HEPATITIS A VACCINES Aged Out No long er eligible based on patient's age to complete this topic HIB VACCINES Aged Out No longer eligi ble based on patient's age to complete this topic MENINGOCOCCAL VACCINES (ACWY) Aged Out No longer eligible based on patient's age to complete this topic MENINGOCOCCAL VACCINES (B) Aged Out N o longer eligible based on patient's age to complete this topic Medical Devices Not on file Procedures Procedure Name Priority Date/Time Associated Diagnosis Comments OUTSIDE EP STUDY Routine 09/10/2024 10:32 AM EDT OUTSIDE EP STUDY Routine 08/10/2024 11:49 AM EDT OUTSIDE EP STUDY Routine 08/07/2024 10:38 AM EDT from Last 3 Months Results * Outside EP Study Report Only (09/10/2024 10:32 AM EDT) [facility] Provider MD CV ELECTROPHYSIOLOGY ORDE DEAN Final Result * Outside EP Study Report Only (08/10/2024 11:49 AM EDT) us Historical Provider MD REYES ELECTROPHYSIOLOGY CHRISTIE MORAN Final Result * Outside EP Study Report Only (08/07/2024 10:38 AM EDT) Historical Provider MD REYES ELECTROPHYSIOLOGY CHRISTIE MORAN Final Result from Last 3 Months Insurance [place] [id number] [facility] B [facility] & [facility] [place] MEDICARE PART A & B [place] MEDICARE PART A & B [facility] MEDIC[facility] PART A & B [facility] MEDICARE PART A & B O MEDICARE PART A & B O MEDICARE PART A & B [facility] Care Teams Architecture Faculty Member Relationship Specialty Start Date End Date Kassandra Gould MD [address] [address] PCP - General 12/16/16 Joel Haddad MD [address] [address] [email or web address] Historical LMR Provider 12/16/16 Additional Source Comments The information contained in this document represents components of the legal health record. It is not the complete legal health record.[facility]
--- OUTSIDE RECORDS SUMMARY | 2024-10-10 13:44 | XMS_ITS | Encounter Summary ---
Author Organization [employer] Address [address] [place] [address] Care Team Providers Care Racecar Driver Name Role Phone Physician, Pcp Unknown Primary Care Provider Venessa vailable Encounter Details Date Type Department Care Team (Late st Contact Info) Description 09/20/2024 Lab Requisition [facility] - Main Lab [address] [facility] [place] [address] Jitendra Padron MD [address] [address] Benign essential microscopic hematuria Social History Tobacco Use Types Packs/Day Years Used Date Smoking Tobacco: Never Assessed Sex and Gender Information Value Date Recorded Sex Assigned at Not on file Legal Sex Male 11:57 PM EST Gender Identity Not on file Sexual Orientation Not on file documented as of this encounter Plan of Treatment Not on file documented as of this encounter Procedures Procedure Name Priority Date/Time Associated Diagnosis Comments NON-GYNECOLOGIC CYTOLOGY Routine 09/13/2024 12:00 AM EDT Benign essential microscopic hematuria documented in this encounter Results * Non-gynecologic cytology (09/13/2024 12:00 AM EDT) Final Diagnosis A. Urine, Voided, [id number]: Negative for high grade urothelial carcinoma. Results of UroVysion fluorescence in situ hybridization (FISH) testing: Although FISH was performed, insufficient non-obscured hybridization signals are present for evaluation and interpretation. 10/02/2024 10:59 AM EDT [facility] H[facility] LAB Specimen A Adequacy Satisfactory for evaluation 10/02/2024 10:59 AM EDT [facility] Clinical Information Benign essential microscopic hematuria R31.1 Urine Cytology/FISH (now) 10/02/2024 10:59 AM EDT [facility] Gross Description A. Urine, Voided, [id number]: Received one ThinPrep slide for cytology and one ThinPrep slide for UroVysion FISH 10/02/2024 10:59 AM EDT [facility] Disclaimer Unless otherwise specified, all tissue is 10% NB formalin fixed and paraffin embedded. Technical pathology services provided by [facility] at [address] [place] [address] [address], [place] [address] (CLIA #[id number]/Marleny Green MD, Insecticide Expert) 10/02/2024 10:59 AM EDT [facility] Urine Urine specimen from urethra / Unknown 09/13/2024 09/20/2024 2:13 PM EDT us Jitendra Padron MD LAB CYTOLOGY ORDERABLES Final Result [facility] [address] [place] [address], documented in this encounter Visit Diagnoses Diagnosis Benign essential microscopic hematuria documented in this encounter Care Teams Racecar Driver Relationship Specialty Start Date End Date Physician, Pcp Unknown PCP - General 09/20/24 documented as of this encounter
== END 2024-10-10 13:52 | disposition home or self-care (01) ==
LOC: HO.HOS 13:14
PROVIDERS: Visit Provider Orthopaedic Surgery
DX: M17.0 Bilateral primary osteoarthritis of knee (principal)
CPT/HCPCS: 20610; 99213

== ENCOUNTER → 2024-10-10 13:14 | Outpatient (BNVA) | payer OTHER, MEDICARE, SELFPAY | PROVIDERS: Visit Provider Orthopaedic Surgery | DX: M17.0 Bilateral primary osteoarthritis of knee (principal) | CPT/HCPCS: 20610; J1010; J2003 ==

== ENCOUNTER 2025-01-14 14:12 | Outpatient (AMB) | payer OTHER, MEDICARE, SELFPAY ==
--- NOTE | 2025-01-14 14:14 | A.OFFVIS_ITS ---
Vital Signs 01/14/25 14:16 Height 5 ft 9 in Weight 190 lb BMI 28.1 Intake Visit Reasons: OV-B/L knee S/P Last Inj-10/10/24 Intake Note: Bogdan is a 69 year old male who presents with complaints of bilateral knee pains as well as pain along the right side of his low back. He describes his back pain as sharp in nature. His back pain has gotten somewhat worse over the last few years. He has had cortisone injections given into his knees which have given him fairly good relief. He has tried Tylenol which gives him minimal relief. He is not able to take anti-inflammatory medicines because he is on Eliquis. Allergies No Known Allergies Allergy (Verified 01/14/25 14:17) Medication List - Last Reconciled 01/15/25 by Brad Jefferson MD apixaban (Eliquis) 2.5 mg PO BID carvedilol 3.125 mg PO Q12H dapagliflozin propanediol (Farxiga) 10 mg PO DAILY finasteride 5 mg PO DAILY fluticasone furoate 27.5 mcg/actuation (Flonase Sensimist) 1 spray intranasal DAILY pentoxifylline ER 400 mg PO BID pregabalin (Lyrica) 25 mg PO DAILY rosuvastatin (Crestor) 5 mg PO DAILY sacubitril-valsartan 24-26 mg (Entresto) 1 tab PO BID semaglutide (Ozempic) 0.25 mg subcut QWEEK tamsulosin (Flomax) 0.4 mg PO BEDTIME testosterone 81 mg topical QAM venlafaxine 12.5 mg PO DAILY zolpidem mg PO PFSH Medical History (Updated 01/15/25 @ 07:14 by Brad Jefferson MD) Arthritis of right knee Arthritis of left knee Social History Patient Tobacco Use Status: Never used Tobacco Current occupational status: retired and disabled Current occupation: rt hand Physical Exam Vital Signs: BMI result Body Mass Index 28.1 Const Other: Well-nourished well-developed very friendly male awake alert and oriented x3 in no acute distress Extrem Other: Bilateral knee examination shows minimal effusions, palpable crepitus with range of motion, pain with range of motion, no instability Office Procedures AMB Joint Injection/Aspiration Joint Injection/Aspiration Primary Site: Right Knee Prep: site was prepped using aseptic technique Injected: 40 mg of, DepoMedrol, with 3 mL of and 1% plain Lidocaine Procedure: The patient tolerated the procedure well Coding 13985 - Large joint Procedure code (CPT) selection complete AMB Joint Injection/Aspiration Joint Injection/Aspiration Primary Site: Left Knee Prep: site was prepped using aseptic technique Injected: 40 mg of, DepoMedrol, with 3 mL of and 1% plain Lidocaine Procedure: The patient tolerated the procedure well Coding 84337 - Large joint Procedure code (CPT) selection complete Assessment & Plan Assessment & Plan (1) Chronic right sacroiliac pain: Code(s): M53.3 - Sacrococcygeal disorders, not elsewhere classified; G89.29 - Other chronic pain Category: Medical (2) Arthritis of left knee: Code(s): M17.12 - Unilateral primary osteoarthritis, left knee Category: Medical (3) Arthritis of right knee: Code(s): M17.11 - Unilateral primary osteoarthritis, right knee Category: Medical Plan Mr. Curtis presents with bilateral knee pains due to degenerative joint disease. The risks and benefits of bilateral knee cortisone injections were discussed at length with the patient. The patient wished to proceed. He tolerated the injections well. He will continue with his home exercise program. I will refer him to the pain management clinic for further evaluation of his right sacroiliac joint pain and chronic low back pain. The patient will contact me prior to his follow-up appointment in 3 months should any questions or concerns arise. Feel free to call me at any time should questions regarding his orthopedic management arise. I spent 22 minutes in reviewing the patient's records and imaging studies, seeing the patient and documenting in the medical record. Orders: Orders AMB Joint Injection/Aspiration 01/14/25 M17.12 - Unilateral primary osteoarthritis, left knee AMB Joint Injection/Aspiration 01/14/25 M17.11 - Unilateral primary osteoarthritis, right knee Referrals Pain Management Referral G89.29 - Other chronic pain, M53.3 - Sacrococcygeal d isorders, not elsewhere classified Coding Level of Care Code Est Pt Level 3 (54331) Complex EM visit Add On G2211 Diagnoses Chronic right sacroiliac pain M53.3; G89.29 Arthritis of left knee M17.12 Arthritis of right knee M17.11 CPT Codes Coding - 95656 Large joint: 67175 - Large joint ([id number]) Coding - 18294 Large joint: 71031 - Large joint ([id number])
[2025-01-14 14:16] VITALS: BMI 28.1
--- OUTSIDE RECORDS SUMMARY | 2025-01-15 04:01 | XMS_ITS | Patient Health Record ---
Author Organization [facility] Address [address] [place] [id number] Care Team Providers Care Warp Clamper Name Role Phone [facility] Primary [facility] Provider [phone] ChilelEdwige Unavailable [phone] Allergies No Known Allergies Results Component Value Reference Range Notes LP+Non-HDL Cholesterol-98703 5 Reviewed date:04/30/2024 03:52:19 PM Interpretation: Performing Lab:[facility] [place], [place] [place] | [facility], Phone - [phone], Director - MDJodry Notes/Report: Test(s) 100945-Sulxbadaczjb, Total, LC/MS was developed and its performance characteristics determined by [facility]. It has not been cleared or approved by the Food and Drug Administration. Cholesterol, Total 98 100-199 mg/dL Triglycerides 230 0-149 mg/dL HDL Cholesterol 28 >39 mg/dL VLDL Cholesterol Kalyan 36 5-40 mg/dL LDL Chol Calc (NIH) 34 0-99 mg/dL Non-HDL Cholesterol 70 0-129 mg/dL Comp. Metabolic Panel (14)-3 50039 Reviewed date:04/30/2024 03:52:19 PM Interpretation: Performing Lab:[facility] [place], [facility] [place], [place], Phone - [phone], Director - MDJodry Notes/Report: Test(s) 182116-Bejxemxdobeb, Total, LC/MS was developed and its performance characteristics determined by [facility]. It has not been cleared or approved [...] (SGPT) 21 0-44 IU/L B-Type Natriuretic Peptide-1 22768 Reviewed date:04/30/2024 03:52:19 PM Interpretation: Performing Lab:[facility], [address] [place] [address], Phone - [phone], Director - [facility] Notes/Report: Test(s) 350992-Yesqxxrynmfv, Total, LC/MS was developed and its performance characteristics determined by [facility]. It has not been cleared or approved by the Food and Drug Administration. B-Type Natriuretic Peptide 14.6 0.0-100.0 pg/m L Siemens ADVIA Centaur XP methodology Request Problem TNP Test not performed. Unable to obtain result due to presence of unknown interfering substance(s). TEST: 820756 % Free Testosterone Panel: 208448 Albumin/Creatinine Ratio,Uri ne-287753 Reviewed date:04/30/2024 03:52:19 PM Interpretation: Performing Lab:[facility] [place], [address] [place] [address], Phone - [phone], Director - [facility] Notes/Report: Test(s) 990150-Fyixajmhdouy, Total, LC/MS was developed and its performance characteristics determined by [facility]. It has not been cleared or approved by the Food and Drug Administration. Creatinine, Urine 77.4 Not Estab. mg/dL Albumin, Urine 49.3 Not Estab. ug/mL Alb/Creat Ratio 64 0-29 mg/g creat Normal: 0 - 29 Moderately increased: 30 - 300 Severely increased: >300 Vitamin D, 96-Zpwjncb-013374 Reviewed date:04/30/2024 03:52:19 PM Interpretation: Performing Lab:[facility] [place], [address] [facility], [place], Phone - [phone], Director - Jesus Notes/Report: Test(s) 469629-Fjbkkupbsgrh, Total, LC/MS was developed and its performance characteristics determined by [facility]. It has not been cleared or approved by the Food and Drug Administration. Vitamin D, 25-Hydroxy 49.8 30.0-100.0 ng/mL Vitamin D deficiency has been defined by the [place] of [employer] and an Endocrine Society practice guideline as a level of serum 25-OH vitamin D less than 20 ng/mL (1,2). The Endocrine Society went on to further define vitamin D insufficiency as a level between 21 and 29 ng/mL (2). 1. IOM ([place] of Medicine). 2010. Dietary reference intakes for calcium and D. [place]: The National Academies Press. 2. Darryl MF, Geo NC, Rebel TAMAYO, et al. Evaluation, treatment, and prevention of vitamin D deficiency: an Endocrine Society clinical practice guideline. JCEM. 2010; 96(7):1911-30. Testosterone, F Eqlib+T LC/M S-[id number] Reviewed date:04/30/2024 03:52:18 PM Interpretation: Performing Lab:[facility] [place], [address] [facility], [place], Phone - [phone], Director - Jesus Notes/Report: Test(s) 331535-Lztcmcdyzmld, Total, LC/MS was developed and its performance characteristics determined by [facility]. It has not been cleared or approved by the Food and Drug Administration. Testosterone, Total, LC/MS 221.8 264.0 -916.0 ng/dL [facility] method is currently certified by the CDC Hormone Standardization Program (HoSt). Adult male reference interval is based on a population of healthy nonobese males (BMI <30) between 19 and 39 years old. Hossein et.al. JCEM 2017,102;8998-4596. PMID: 89689001. Testosterone, Free TNP Unable to calculate result since non-numeric result obtained for component test. % Free Testosterone TNP Test not performed. Unable to obtain result due to presence of unknown interfering substance(s). Urinalysis, Complete-173826 Reviewed date:04/30/2024 03:52:18 PM Interpretation: Performing Lab:[facility] [place], [address] [place] [address], Phone - [phone], Director - [facility] Notes/Report: Test(s) 601478-Vrsamkqizdgn, Total, LC/MS was developed and its performance characteristics determined by [facility]. It has not been cleared or approved by the Food and Drug Administration. Test(s) 618764-Sgrhhhebqbsa, Total, LC/MS was developed and its performance characteristics determined by [facility]. It has not been cleared or approved by the Food and Drug Administration. Specific [place] >=1.030 1.005-1.030 pH 5.0 5.0-7.5 Urine-Color Yellow [...] 10:13:40 AM Interpretation: Performing Lab: Notes/Report: [facility] Lot: [id number] CULTURE URINE Reviewed date:09/14/2024 03:04:04 PM Interpretation: Performing Lab: Notes/Report: Culture, Urine No growth Hemoglobin A1C Reviewed date:08/08/2024 01:36:33 PM Interpretation: Performing Lab: Notes/Report: [facility] ([facility]), [facility] Lot: [id number] Urinalysis, Complete-[id number] Reviewed date:09/12/2024 05:59:00 PM Interpretation: Performing Lab:[facility] [place], [address] [facility], Phone - [phone], Director - FLJade Notes/Report: Test(s) 840190-Tbuxiglwdftk, Total, LC/MS was developed and its performance characteristics determined by [facility]. It has not been cleared or approved by the Food and Drug Administration. Test(s) 499041-Awkbamuiqynz, Total, LC/MS was developed and its performance characteristics determined by [facility]. It has not been cleared or approved by the Food and Drug Administration. Specific [place] 1.029 1.005-1.030 pH 6.0 5.0-7.5 Urine-Color Yellow Yellow Appearance Cloudy Clear WBC Esterase Negative Negative Protein 1+ Negative/Trace Glucose 3+ Negative Ketones Negative Negative Occult Blood Negative Negative Bilirubin Negative Negative Urobilinogen,Semi-Qn 0.2 0.2-1.0 mg/dL Nitrite, Urine Negative Negative Microscopic Examination See below: Micr oscopic was indicated and was performed. WBC 11-30 0 - 5 /hpf RBC None seen 0 - 2 /hpf Epithelial Cells (non renal) 0-10 0 - 10 /hpf Casts None seen None seen /lpf Bacteria None seen None seen/Few Yeast Present None seen Testosterone, F Eqlib+T LC/M S-[id number] Reviewed date:09/12/2024 05:59:01 PM Interpretation: Performing Lab:[facility] [place], [address] [place] [address], Phone - [phone], Director - [facility] Notes/Report: Test(s) 307295-Suphexyhqxre, Total, LC/MS was developed and its performance characteristics determined by [facility]. It has not been cleared or approved by the Food and Drug Administration. Testosterone, Total, LC/MS 235.5 264.0 -916.0 ng/dL This [facility] LC/[facility]-MS method is currently certified by the CDC Hormone Standardization Program (HoSt). Adult male reference interval is based on a population of healthy nonobese males (BMI <30) between 19 and 39 years old. Hossein, et.al. JCEM 2017,102;1861-2917. PMID: 21085553. Testosterone, Free 10.20 5.00-21.00 ng/dL % Free Testosterone 4.33 1.50-4.20 % Albumin/Creatinine Ratio,Uri ne-733703 Reviewed date:09/12/2024 05:59:01 PM Interpretation: Performing Lab:[facility] [place], [address] [place] [address], [place], Phone - [phone], Director - Jesus Notes/Report: Test(s) 246485-Zpnxikfbmums, Total, LC/MS was developed and its performance characteristics determined by [facility]. It has not been cleared or approved by the Food and Drug Administration. Creatinine, Urine 107.0 Not Estab. mg/dL Albumin, Urine 64.6 Not Estab. ug/mL Alb/Creat Ratio 60 0-29 mg/g creat Normal: 0 - 29 Moderately increased: 30 - 300 Severely increased: >300 B-Type Natriuretic Peptide-1 58951 Reviewed date:09/12/2024 05:59:01 PM Interpretation: Performing Lab:[facility] [place], [address] [place] [address], Phone - [phone], Director - [facility] Notes/Report: Test(s) 383748-Vlihgvhkcbal, Total, LC/MS was developed and its performance characteristics determined by [facility]. It has not been cleared or approved by the Food and Drug Administration. B-Type Natriuretic Peptide 18.9 0.0-100.0 pg/m L Siemens ADVIA Centaur XP methodology Comp. Metabolic Panel (14)-3 61446 Reviewed date:09/12/2024 05:59:01 PM Interpretation: Performing Lab:[facility] [place], [address] [place] [address], [place], Phone - [phone], Director - [facility] Notes/Report: Test(s) 215339-Kabvvizsatmp, Total, LC/MS was developed and its performance characteristics determined by [facility]. It has not been cleared or approved by the Food and Drug Administration. Glucose 119 70-99 mg/dL BUN 16 8-27 mg/dL Creatinine 1.57 0.76-1.27 mg/dL eGFR 47 >59 mL/min/1.73 BUN/Creatinine Ratio 10 10-24 Sodium 142 134-144 mmol/L Potassium 4.4 3.5-5.2 mmol/L Chloride 103 96-106 mmol/L Carbon Dioxide, Total 23 20-29 mmol/L Calcium 9.4 8.6-10.2 mg/dL Protein, Total 6.7 6.0-8.5 g/dL Albumin 4.3 3.9-4.9 g/dL Globulin, Total 2.4 1.5-4.5 g/dL Bilirubin, Total 2.9 0.0-1.2 mg/dL Alkaline Phosphatase 76 44-121 IU/L AST (SGOT) 17 0-40 IU/L ALT (SGPT) 24 0-44 IU/L Hemoglobin O3x-939266 (Not y et reviewed by provider) Interpretation: Performing Lab:[facility], Phone - [phone], [facility] [place]/Report: Test(s) 558184-Aybbplssqpxq, Total, LC/MS; 047602-q-jcs646 was developed and its performance characteristics determined by [facility]. It has not been cleared or approved by the Food and Drug Administration. Hemoglobin A1c 6.5 4.8-5.6 % . Prediabetes: 5.7 - 6.4 Diabetes: >6.4 Glycemic control for adults with diabetes: <7.0 Vitamin B50-138597 (Not yet reviewed by provider) Interpretation: Performing Lab:[address], Phone - [phone], [facility] [place]/Report: Test(s) 203454-Cswmmidlqyfd, Total, LC/MS; 585785-k-vcm412 was developed and its performance characteristics determined by [facility]. It has not been cleared or approved by the Food and Drug Administration. Vitamin B12 837 869-9299 pg/mL Immunofixation, Serum-882877 (Not yet reviewed by provider) Interpretation: Performing Lab:[address], Phone - [phone], [facility] [place]/Report: Test(s) 524436-Kfgwbmmoliqx, Total, LC/MS; 942579-m-cov748 was developed and its performance characteristics determined by [facility]. It has not been cleared or approved by the Food and Drug Administration. Immunofixation Result, Serum The immunofixation pattern appears unremarkable. Evidence of monoclonal protein is not apparent. Immunoglobulin G, Qn, Serum 7477 271-6995 mg/d L Immunoglobulin A, Qn, Serum 223 61-437 mg/dL Immunoglobulin M, Qn, Serum 166 20-172 mg/dL Folate (Folic Acid), Serum-0 71136 (Not yet reviewed by provider) Interpretation: Performing Lab:[address], [place], Phone - [phone], [facility] [place]/Report: Test(s) 297930-Vkurlbofmllg, Total, LC/MS; 787910-d-vxk000 was developed and its performance characteristics determined by [facility]. It has not been cleared or approved by the Food and Drug Administration. Folate (Folic Acid), Serum 5.3 >3.0 ng/mL A serum folate concentration of less than 3.1 ng/mL is considered to represent clinical deficiency. Urinalysis, Complete-708688 (Not yet reviewed by provider) Interpretation: Performing Lab:[facility] [place], [address] [facility], [place], Phone - [phone], Director - [facility] Notes/Report: Test(s) 416546-Eytbotopkzds, Total, LC/MS; 733701-w-ahg300 was developed and its performance characteristics determined by [facility]. It has not been cleared or approved by the Food and Drug Administration. Test(s) 346150-Ywimkguxxxfp, Total, LC/MS; 390383-j-yml428 was developed and its performance characteristics determined by [facility]. It has not been cleared or approved by the Food and Drug Administration. Specific [place] >=1.030 1.005-1.030 pH 5.5 5.0-7.5 Urine-Color Yellow Yellow Appearance Cloudy Clear WBC Esterase Negative Negative Protein 1+ Negative/Trace Glucose 3+ Negative Ketones Negative Negative Occult Blood Negative Negative Bilirubin Negative Negative Urobilinogen,Semi-Qn 0.2 0.2-1.0 mg/dL Nitrite, Urine Positive Negative Microscopic Examination See below: Micr oscopic was indicated and was performed. WBC >30 0 - 5 /hpf RBC None seen 0 - 2 /hpf Epithelial Cells (non renal) 0-10 0 - 10 /hpf Casts None seen None seen /lpf Bacteria Many None seen/Few TSH-431615 (Not yet reviewed by provider) Interpretation: Performing Lab:[facility] [place], [address], [place], Phone - [phone], Director - [facility] Notes/Report: Test(s) 716438-Mwqurrhlgigw, Total, LC/MS; 530980-m-xzs591 was developed and its performance characteristics determined by [facility]. It has not been cleared or approved by the Food and Drug Administration. TSH 3.630 0.450-4.500 uIU/mL CBC With Differential/Platel et-446747 (Not yet reviewed by provider) Interpretation: Performing Lab:[facility] [place], [address], [place], Phone - [phone], Director - FL[facility]ade Notes/Report: Test(s) 362246-Jevsocngmvqc, Total, LC/MS; 998518-j-uke698 was developed and its performance characteristics determined by [facility]. It has not been cleared or approved by the Food and Drug Administration. WBC 7.0 3.4-10.8 x10E3/uL RBC 6.48 4.14-5.80 x10E6/uL Hemoglobin 16.9 13.0-17.7 g/dL Hematocrit 51.6 37.5-51.0 % MCV 80 79-97 fL MCH 26.1 26.6-33.0 pg MCHC 32.8 31.5-35.7 g/dL RDW 17.0 11.6-15.4 % Platelets 112 150-450 x10E3/uL Neutrophils 66 Not Estab. % Lymphs 20 Not Estab. % Monocytes 7 Not Estab. % Eos 6 Not Estab. % Basos 1 Not Estab. % Neutrophils (Absolute) 4.7 1.4-7.0 x10E3/uL Lymphs (Absolute) 1.4 0.7-3.1 x10E3/uL Monocytes(Absolute) 0.5 0.1-0.9 x10E3/uL Eos (Absolute) 0.4 0.0-0.4 x10E3/uL Baso (Absolute) 0.0 0.0-0.2 x10E3/uL Immature Granulocytes 0 Not Estab. % Immature Grans (Abs) 0.0 0.0-0.1 x10E3/uL Prostate-Specific Ag-282965 (Not yet reviewed by provider) Interpretation: Performing Lab:[facility] [place], [address], [place], Phone - [phone], Director - Jesus Notes/Report: Test(s) 541879-Ujcjmfdijxjw, Total, LC/MS; 352249-w-tqp454 was developed and its performance characteristics determined by [facility]. It has not been cleared or approved by the Food and Drug Administration. Prostate Specific Ag 5.9 0.0-4.0 ng/mL Gretta ECLIA methodology. . According to the [place] [employer], Serum PSA should decrease and [...] the presence or absence of malignant disease. Testosterone, F Eqlib+T LC/M S-288090 (Not yet reviewed by provider) Interpretation: Performing Lab:[facility] [place], [address] [facility], [place], Phone - [phone], Director - [facility] Notes/Report: Test(s) 326014-Vogdnxereuev, Total, LC/MS; 688543-m-taq892 was developed and its performance characteristics determined by [facility]. It has not been cleared or approved by the Food and Drug Administration. Testosterone, Total, LC/MS 372.6 264.0 -916.0 ng/dL This [facility] LC/MS-MS method is currently certified by the CDC Hormone Standardization Program (HoSt). Adult male reference interval is based on a population of healthy nonobese males (BMI <30) between 19 and 39 years old. Hossein, et.al. JCEM 2017,102;5404-0407. PMID: 05041091. Testosterone, Free 14.94 5.00-21.00 ng/dL % Free Testosterone 4.01 1.50-4.20 % Vitamin D, 17-Devitgo-976251 (Not yet reviewed by provider) Interpretation: Performing Lab:[facility] [place], [address] [facility], [place], Phone - [phone], Director - [facility] Notes/Report: Test(s) 924916-Hdvborwjbkzf, Total, LC/MS; 116308-u-dte751 was developed and its performance characteristics determined by [facility]. It has not been cleared or approved by the Food and Drug Administration. Vitamin D, 25-Hydroxy 57.1 30.0-100.0 ng/mL Vitamin D deficiency has been defined by the [place] of [employer] and an Endocrine Society practice guideline as a level of serum 25-OH vitamin D less than 20 ng/mL (1,2). The Endocrine Society went on to further define vitamin D insufficiency as a level between 21 and 29 ng/mL (2). 1. IOM ([place] of [employer]). 2010. Dietary reference intakes for calcium and D. [place]: The National Academies Press. 2. Darryl MF, Geo MADDEN, Rebel TAMAYO, et al. Evaluation, treatment, and prevention of vitamin D deficiency: an Endocrine Society clinical practice guideline. JCEM. 2010; 96(7):1911-30. Albumin/Creatinine Ratio,Uri ne-976491 (Not yet reviewed by provider) Interpretation: Performing Lab:[facility] [place], [address] [place] [address], Phone - [phone], Director - [facility] Notes/Report: Test(s) 531047-Avqrneznggmb, Total, LC/MS; 743345-e-dwq610 was developed and its performance characteristics determined by [facility]. It has not been cleared or approved by the Food and Drug Administration. Creatinine, Urine 112.1 Not Estab. mg/dL Albumin, Urine 45.3 Not Estab. ug/mL Alb/Creat Ratio 40 0-29 mg/g creat Normal: 0 - 29 Moderately increased: 30 - 300 Severely increased: >300 B-Type Natriuretic Peptide-1 30072 (Not yet reviewed by provider) Interpretation: Performing Lab:[facility] [place], [address] [place] [address], [place], Phone - [phone], Director - [facility] Notes/Report: Test(s) 166308-Huyzvydyuues, Total, LC/MS; 733452-g-vis570 was developed and its performance characteristics determined by [facility]. It has not been cleared or approved by the Food and Drug Administration. B-Type Natriuretic Peptide 19.0 0.0-100.0 pg/m L Siemens ADVIA Centaur XP methodology Comp. Metabolic Panel (14)-3 15020 (Not yet reviewed by provider) Interpretation: Performing Lab:[facility] [place], [address] [place] [address], [place], Phone - [phone], Director - MDdr Notes/Report: Test(s) 062433-Rhizqklouctw, Total, LC/MS; 654580-p-oya996 was developed and its performance characteristics determined by [facility]. It has not been cleared or approved by the Food and Drug Administration. Glucose 115 70-99 mg/dL BUN 28 8-27 mg/dL Creatinine 1.59 0.76-1.27 mg/dL eGFR 47 >59 mL/min/1.73 BUN/Creatinine Ratio 18 10-24 Sodium 140 134-144 mmol/L Potassium 4.2 3.5-5.2 mmol/L Chloride 103 96-106 mmol/L Carbon Dioxide, Total 19 20-29 mmol/L Calcium 9.9 8.6-10.2 mg/dL Protein, Total 7.0 6.0-8.5 g/dL Verified by repeat analysis Albumin 4.7 3.9-4.9 g/dL Globulin, Total 2.3 1.5-4.5 g/dL Bilirubin, Total 3.3 0.0-1.2 mg/dL Verified by repeat analysis Alkaline Phosphatase 75 44-121 IU/L Effective November 12, 2024 Alkaline Phosphatase reference interval will be changing to: Age Male Female 0 - 5 days 47 - 127 47 - 127 6 - 10 days 29 - 242 29 - 242 11 - 20 days 109 - 357 109 - 357 21 - 30 days 94 - 494 94 - 494 1 - 2 months 149 - 539 149 - 539 3 - 6 months 131 - 452 131 - 452 7 - 11 months 117 - 401 117 - 401 12 months - 6 years 158 - 369 158 - 369 7 - 12 years 150 - 409 150 - 409 13 years 156 - 435 78 - 227 14 years 114 - 375 64 - 161 15 years 88 - 279 56 - 134 16 years 74 - 207 51 - 121 17 years 63 - 161 47 - 113 18 - 20 years 51 - 125 42 - 106 21 - 50 years 47 - 123 41 - 116 51 - 80 years 49 - 135 51 - 125 >80 years 48 - 129 48 - 129 AST (SGOT) 13 0-40 IU/L ALT (SGPT) 17 0-44 IU/L LP+Non-HDL Cholesterol-79863 5 (Not yet reviewed by provider) Interpretation: Performing Lab:[facility], [address] [place] [address] Avenue, [place], Phone - [phone], Director - Jesus Notes/Report: Test(s) 511959-Hydccudwizeu, Total, LC/MS; [id number]-w-stf955 was developed and its performance characteristics determined by [facility]. It has not been cleared or approved by the Food and Drug Administration. Cholesterol, Total 99 100-199 mg/dL Triglycerides 140 0-149 mg/dL HDL Cholesterol 34 >39 mg/dL VLDL Cholesterol Kalyan 24 5-40 mg/dL LDL Chol Calc (NIH) 41 0-99 mg/dL Non-HDL Cholesterol 65 0-129 mg/dL APOE Alzheimer's Risk-805559 (Not yet reviewed by provider) Interpretation: Performing Lab:[facility] [place], [address], [place], Phone - [phone], Director - Jesus Notes/Report: Test(s) 876771-Jfedctoeyuqq, Total, LC/MS; 244552-t-igh351 was developed and its performance characteristics determined by [facility]. It has not been cleared or approved by the Food and Drug Administration. Methodology: Patient DNA is assayed for the APOE genotype by PCR amplification of a specific region in exon 4 of the APOE gene followed by digestion with restriction enzyme Hoisting Machine Operator I and separation of fragments by polyacrylamide gel electrophoresis. This approach allows the APOE E2, E3, and E4 alleles to be distinguished. Analytical sensitivity and specificity are >99.5%. Individuals are interpreted as having one of the following genotypes: E2/E2, E3/E3, E4/E4, E2/E3, E2/E4, E3/E4. APO E Genotyping Result: E3/E3 Interpretation: Negative for the APOE4 variant that is associated with increased risk for late onset Alzheimer's disease (AD). E3/E3 is the most common APOE genotype and is not associated with increased risk for AD. RECOMMENDATIONS Genetic counseling is recommended. Due to the lack of measures to prevent the development of AD, the ACMG/NSGC guidelines do not recommend presymptomatic testing, but if it is performed, guidelines are provided (Arianne ESTRADA et al. 2011). The APOE Genotyping: Alzheimer's Risk test is not recommended for children. NOTE: This is not a diagnostic test. Results should be interpreted along with clinical findings and other data. This test evaluates only for the APOE genotype and cannot detect genetic abnormalities elsewhere in the genome. It should be realized that there are possible sources of error including sample misidentification, rare technical errors, trace contamination of PCR reactions, and rare genetic variants that may interfere with analysis. For inquiries or genetic consultation, please call [facility] at . Comment: INFORMATION ABOUT THE APOE GENOTYPE AND ALZHEIMER'S DISEASE Alzheimer's disease (AD) is the most common form of dementia in the elderly and currently affects more than 5 million Americans. It is a progressive neurodegenerative disorder with brain findings of plaques and neurofibrillary tangles containing beta-amyloid and tau protein respectively. The predominant form of AD is late onset (age > 60-65), which can be familial (15-20%) or sporadic. The APOE4 variant increases the risk for late onset AD and may contribute to the pathology of the disease. This risk is increased by approximately 2 to 3-fold for individuals with one copy of the APOE4 variant and by approximately 10 hv13-awpr for individuals with two copies of this variant (E4/E4 genotype). The APOE2 variant has some protective effect against development of late onset AD. The lifetime risk for late onset AD is approximately 10-12% in the general population, though it is higher in women than men and doubles when there is a first degree relative with this disorder. The lifetime risk is approximately 9% for individuals negative for APOE4, and for individuals with E4/E4 may be as high as 25% for males and 45% for females. Among patients with late onset AD, the presence of APOE4 may lead to earlier development of symptoms. However, APOE4 is neither necessary nor sufficient for the development of AD. Approximately 30-50% of patients with late onset AD do not have an APOE4 allele. APOE4 is common, with 25% of the general population having one copy and 1% having two copies of this variant. Among patients with late onset AD, 50-70% are positive for APOE4. The development of late onset AD is influenced by many factors other than APOE4 including age, gender, family history, level of education and history of head trauma. Midlife cardiovascular risk factors in individuals with APOE4 also increase risk for cognitive decline. A number of genetic influences in addition to APOE4 have also been reported and are under investigation. This test was developed and its performance characteristics determined by [facility]. It has not been cleared or approved by the Food and Drug Administration. The FDA has determined that such clearance or approval is not necessary. REFERENCES Brittany Collins et al. Sex modifies the APOE-related risk of developing Alzheimer disease. Annal Neurol 2014;75(4):563-573 Bird TD. Alzheimer Disease Overview. [employer] (internet). Gloria YANG et al., editors. [facility]: [facility], [place], [place]. Last revised 2014. Arianne ESTRADA et al. Genetic counseling and testing for Alzheimer disease: Joint practice guidelines of the [employer] and the National Society of Genetic Counselors. Elva in Med 2011;13(8)691-313. Nirav WEISS. Apolipoprotein E: Implications for AD neurobiology, epidemiology and risk assessment. Neurobiology of Aging 2011;32:778-790 Phosphatidylethanol (PEth)-7 62988 (Not yet reviewed by provider) Interpretation: Performing Lab:[facility] [place], [address], [place], Phone - [phone], Director - [facility] Notes/Report: Test(s) 240462-Npjovlunbssl, Total, LC/MS; 113393-[id number] was developed and its performance characteristics determined by [facility]. It has not been cleared or approved by the Food and Drug Administration. PHOSPHATIDYLETHANOL Negative Phosphatidylethanol (PEth) Negative Analyzed compound: PEth 16:0/18:1. 4-zektiqaem-6-oleoyl-sn -orqzsvw-4-vwthfnjqzrqw ol. Analysis performed by Liquid Chromatography with Tandem Mass Spectrometry (LC/MS/MS). Detection limit: 20 ng/mL PEth levels in excess of 20 ng/mL are considered evidence of moderate to heavy ethanol consumption. However, the Center for Substance Abuse Treatment (CSAT) advises caution in interpretation and use of biomarkers alone to assess alcohol use. Results should be interpreted in the context of all available clinical and behavioral information. Reference: Substance Abuse and Mental Health Services Administration (2012). The Role of Biomarkers in the Treatment of Alcohol Use Disorders , 2012 Revision. Advisory, Volume 11, Issue 2. This test was developed and its performance characteristics determined by [facility]. It has not been cleared or approved by the Food and Drug Administration. HCV Antibody-883531 (Not yet reviewed by provider) Interpretation: Performing Lab:[facility] [place], [address], [place], Phone - [phone], Director - [facility] Notes/Report: Test(s) 592514-Tcsnqgsuksox, Total, LC/MS; [id number] was developed and its performance characteristics determined by [facility]. It has not been cleared or approved by the Food and Drug Administration. Hep C Virus Ab Non Reactive Non Reactive HCV antibody alone does not differentiate between previously resolved infection and active infection. Equivocal and Reactive HCV antibody results should be followed up with an HCV RNA test to support the diagnosis of active HCV infection. [facility] Informed Consent Fo rm (Not yet reviewed by provider) Interpretation: Performing Lab:[facility], [address], [place], Phone - [phone], [facility] Notes/Report: [facility] Informed Consent Form [facility] Informed Consent Form 02 Please Fax back to [phone]. Many states require laboratories to have documentation that the appropriate health care provider has obtained informed consent from patients before the laboratory conducts genetic testing. Informed consent includes the patient understanding the purpose of the test, how the test is performed, the reliability of the test, alternatives to testing, implications of test results, and options on how to instruct the laboratory to store, use or dispose of the sample when testing is complete. [facility] did not receive any documentation of informed consent for above mentioned patient and ordered tests. Please check the statement applicable to this patient and sign below so that [facility] may release the results for this patient. . [] I authorize and confirm patient consent for the above mentioned genetic test(s). . [] I have provided appropriate informed consent for the above mentioned test(s) and documentation of this consent is maintained in the patient record. . . Health care provider signature ___Date . Printed name . Fax back to [facility] at [phone] . [facility] Phosphorylated Tau 217 (pTau -217) (Not yet reviewed by provider) Interpretation: Performing Lab:[facility] Ng, [address], [place], Phone - [phone], Director - Jesus Notes/Report: Test(s) 966074-Naxwyqxjkine, Total, LC/MS; [id number]-iff707 was developed and its performance characteristics determined by [facility]. It has not been cleared or approved by the Food and Drug Administration. p-ett146 0.11 0.00-0.18 pg/mL Clinical cutoff value was established using samples from a patient cohort characterized with amyloid PET data. A p-jfc992 value of >0.18 is a reported surrogate marker for beta amyloid pathology, and can be used to facilitate biological identification of Alzheimer's disease (1). p-ylm730 has also been used in clinical trials to monitor patients on anti-amyloid therapy (2,3). Test performed by [employer] chemiluminescent enzyme immunoassay (CLEIA). Values obtained with different methods cannot be used interchangeably. The validated limit of quantification is 0.06 pg/mL. Assay detection limit is 0.03 pg/mL. Footnotes 1. Migel Sifuentes, et al. Diagnostic Accuracy of a Plasma Phosphorylated Tau 217 Immunoassay for Alzheimer Disease Pathology. JAVED neurology (2023). 2. Migel Sifuentes, et al. Differential roles of A42/40, p-uxp694 and p-clr196 for Alzheimer's trial selection and disease monitoring. Nature medicine 28.12 (2021): 1214-9069. 3. Cesar STEPHENSON, Luz M, Alonzo SC, et al. Association of Donanemab Treatment With Exploratory Plasma Biomarkers in Early Symptomatic Alzheimer Disease: A Secondary Analysis of the TRAILBLAZER-ALZ Randomized Clinical Trial . JAVED Neurol. 2021;79(12):3909-4020. TISSUE EXAM (Not yet reviewe d by provider) Interpretation: Performing Lab: Notes/Report: Elevated PSA PSA: 6.1 (10/04/24) PSA-Free: 0.78 (10/04/24) [id number] Final Diagnosis A. Prostate, Left Middle [place] Biopsy: Benign prostatic tissue B. Prostate, Left Lateral [place] Biopsy: Benign prostatic tissue with acute and chronic inflammation C. Prostate, Left Middle [place] Biopsy: Benign prostatic tissue D. Prostate, Left Lateral Middle Biopsy: Benign prostatic tissue E. Prostate, Left Middle Base Biopsy: Benign prostatic tissue with acute and chronic inflammation F. Prostate, Left Lateral Base Biopsy: Benign prostatic tissue G. Prostate, Right [place] Biopsy: Benign prostatic tissue H. Prostate, Right Lateral [place] Biopsy: Benign prostatic tissue I. Prostate, Right Middle [place] Biopsy: Benign prostatic tissue J. Prostate, Right Lateral [place] Biopsy: Benign prostatic tissue K. Prostate, Right Middle Base Biopsy: Benign prostatic tissue L. Prostate, Right Lateral Base Biopsy: Benign prostatic tissue Clinical Information Elevated PSA PSA: 6.1 (10/04/24) PSA-Free: 0.78 (10/04/24) [id number] Gross Description A. Prostate, Left Mid [place] Biopsy: Received, properly labeled, are two H and E stained slides and two unstained slides. B. Prostate, Left Lat [place] Biopsy: Received, properly labeled, are two H and E stained slides and two unstained slides. C. Prostate, Left Mid Mid Biopsy: Received, properly labeled, are two H and E stained slides and two unstained slides. D. Prostate, Left Lat Mid Biopsy: Received, properly labeled, are two H and E stained slides and two unstained slides. E. Prostate, Left Mid Base Biopsy: Received, properly labeled, are two H and E stained slides and two unstained slides. F. Prostate, Left Lat Base Biopsy: Received, properly labeled, are two H and E stained slides and two unstained slides. G. Prostate, Right Mid [place] Biopsy: Received, properly labeled, are two H and E stained slides and two unstained slides. H. Prostate, Right Lat [place] Biopsy: Received, properly labeled, are two H and E stained slides and two unstained slides. I. Prostate, Right Mid Mid Biopsy: Received, properly labeled, are two H and E stained slides and two unstained slides. J. Prostate, Right Lat Mid Biopsy: Received, properly labeled, are two H and E stained slides and two unstained slides. K. Prostate, Right Mid Base Biopsy: Received, properly labeled, are two H and E stained slides and two unstained slides. L. Prostate, Right Lat Base Biopsy: Received, properly labeled, are two H and E stained slides and two unstained slides. /al Special Stains E. Focally, the glands appear to have a haphazard appearance raising the possibility of invasive neoplasm. Therefore PIN4 stain was performed with appropriate controls. P63 and cytokeratin 5: Expressed in basal cells AMACR: No expression This supports excludes malignancy. Disclaimer Unless otherwise specified, all tissue is 10% NB formalin fixed and paraffin embedded. Technical pathology services provided by [facility] at [address] [place] [address] [address], [place] [address] (CLIA #[id number]/Nicole Green MD, [employer]) Reason For Referral Reason faxed Diagnosis 1 Obstructive sleep ap shubham (adult) (pediatric) (G47.33) Referral Organization [facility] Referring Provider First Name Shana Referring Provider Last Name Luis Fernando Referring Provider Speciality Internal M edicine Referred Provider Casey Mckeon Referred Provider Specialty Sleep Medici ne General Notes [facility], [place] 03/31 04:17:31 PM >faxed, [facility], [place] 10/17/2024 03:16:05 PM >faxed record request Referral Priority Routine Reason faxed Diagnosis 1 Straining to void (R 39.16) Referral Organization [facility] Referring Provider First Name Shana Referring Provider Last Name Luis Fernando Referring Provider Speciality Internal edicine Referred Provider Ata Anne Referred Provider Specialty Urology General Notes [facility] [place] 09/2024 09:21:36 AM >faxed Referral Priority Routine Referral Appointment Date 09/13/2024 Medications Medication SIG (Take, Route, Frequency, Duration) Notes Start Date End Date Status Testosterone 1.62 % 1 pump to skin in morning to shoulder, upper arms or abdomen Transdermal daily; Duration: 30 days 12/04/2024 Active Ozempic (2 MG/DOSE) 8 MG/3ML 2 mg Subcutaneous Once a Week; Duration: 90 days 08/08/2024 11/22/2025 Active Sacubitril-Valsartan 97-103 MG 1 tablet Orally Twice a day; Duration: 90 days 09/07/2024 11/24/2025 Active Tamsulosin HCl 0.4 MG 2 capsules once a day Orally Once a day; Duration: 90 days Active Imodium A-D 2 MG 1 tablet as needed Orally two times a day; Duration: 30 days 01/19/2025 Active Zolpidem Tartrate 10 MG 1 tablet at bedt maribel Orally Once a Day as needed; Duration: 90 days 12/20/2024 06/18/2025 Active Carvedilol 12.5 MG TAKE 1 TABLET BY JESSICA TH TWICE DAILY; Duration: 90 days Active Pentoxifylline ER 400 MG TAKE 1 TABLET B Y MOUTH TWICE DAILY WITH MEALS; Duration: 90 Active Rosuvastatin Calcium 40 MG TAKE 1 TABLET BY MOUTH DAILY; Duration: 90 Active Ketoconazole 2 % USE 1 APPLICATION EXTERNALLY TWICE A DAY FOR 28 DAYS; Duration: 28 Active Flonase 50 MCG/ACT INHALE 2 SPRAYS INTO EACH NOSTRIL DAILY.; Duration: 30 Active Farxiga 10 MG TAKE 1 TABLET BY JESSICA TH EVERY DAY Orally Once a day; Duration: 90 days 2025 Active Venlafaxine HCl ER 150 MG TAKE 1 CAPSULE BY MOUTH ONCE DAILY WITH FOOD; Duration: 90 Active Vitamin D3 25 MCG (1000 UT) 1 tablet Orally Once a day; Duration: 90 days Active Lyrica 100 MG 1 capsule Orally Twi ce a day; Duration: 90 days 12/21/2024 Active Eliquis 5 MG 1 Tablet Orally Twic e a day; Duration: 90 days Active Immunizations Vaccine Route Administration Date Status Comme nts PVC21 Unknown 12/04/2024 Administered Pneumococcal polysaccharide PPV23 Unknown 06/27/2007 Administered Pneumococcal polysaccharide PCV 13 Unknown 09/23/2020 Administered Influenza-Afluria (IIV4) IM Intramuscular 11/29/2016 Administered Influenza, seasonal, injectable (split), for 3 yrs and up IM Intramuscular 11/06/2017 Administered Mfd by [employer]-PAsteur Influenza, high dose seasonal Unknown 12/04/2024 Administered Influenza Unknown 11/29/2015 Administered Est at Pharmacy Influenza Unknown 11/06/2017 Administered Influenza Unknown 12/17/2019 Administered Influenza Unknown 12/03/2020 Administered CIECX-95-Qfbsqxq Vaccine Unknown 05/26/2020 Administered YRGRS-35-Ueewpuk Vaccine Unknown 06/23/2020 Administered CBKHU-10-Alexzus Vaccine Unknown 12/25/2020 Administered COVID-19 Moderna BiValent Booster Unknown 12/07/2021 Administered COVID Spikevax Moderna Unknown 12/10/2022 Administered COVID COMIRNATY Pfizer Unknown 12/06/2023 Administered COVID COMIRNATY Pfizer Unknown 12/04/2024 Administered *Td (adult) preservative free Unknown 12/29/1993 Administered *Td (adult) preservative free Unknown 06/04/2010 Administered *Td (adult) preservative free IM Intramuscular 09/22/2020 Administered *PREVNAR 20 Unknown 10/18/2024 Refused *Pneumococcal polysaccharide PPV23 IM Intramuscular 09/22/2021 Administered *Influenza-Medicare-A S IM Intramuscular 12/12/2018 Administered *Cikwqndco-Jgyyyey-Aw gh Dose-65+ Unknown 12/06/2023 Administered *Influenza, High Dose Seasonal, Quadrivatent Unknown 12/07/2021 Administered *Influenza, High Dose Seasonal, Quadrivatent Unknown 12/10/2022 Administered Social History Tobacco Use: Social History [...] Problem Status W/U Status Risk Notes Problem Megaloblastic anemia (32868295) Other megaloblastic anemias, 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) Active confirmed Problem Thrombophilia (845024126) 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) Active confirmed Problem Thrombocytopenia (913914038) Thrombocytopenia, unspecified (D69.6) Active confirmed Problem Diabetic renal disease (539571871) Type 2 diabetes mellitus with diabetic chronic kidney disease (E11.22) Active confirmed Problem Testicular hypofunction (048265003) Testicular hypofunction (E29.1) Active confirmed Problem Vitamin D deficiency (09197192) Vitamin D deficiency, unspecified (E55.9) Active confirmed Problem Mixed hyperlipidemia (266788286) Mixed hyperlipidemia (E78.2) Active confirmed Problem Adjustment disorder with anxiety (74981084) Adjustment disorder with anxiety (F43.22) Active confirmed Problem Obstructive sleep apnea syndrome (95249750) Obstructive sleep apnea (adult) (pediatric) (G47.33) Active confirmed Problem Sensorineural hearing loss of bilateral ears (disorder) (616349156) Sensorineural hearing loss, bilateral (H90.3) Active confirmed Problem Hypertensive heart AND chronic kidney disease with congestive heart failure (89389499367057) Hypertensive heart and chronic kidney disease with heart failure and stage 1 through stage 4 chronic kidney disease, or unspecified chronic kidney disease (I13.0) Active confirmed Problem Atherosclerotic heart disease of [place] coronary artery without angina pectoris (401163620073139) Atherosclerotic heart disease of [place] coronary artery without angina pectoris (I25.10) Active confirmed Problem Dilated cardiomyopathy (975607532) Dilated cardiomyopathy (I42.0) Active confirmed Problem Paroxysmal atrial fibrillation (994059896) Paroxysmal atrial fibrillation (I48.0) Active confirmed Problem Chronic systolic heart failure (508323146) Chronic systolic (congestive) heart failure (I50.22) Active confirmed Problem Derangement of anterior horn of medial meniscus (0465881) Derangement of anterior horn of medial meniscus due to old tear or injury, left knee (M23.212) Active confirmed Problem Induratio penis plastica (7428600) Induration penis plastica (N48.6) Active confirmed Problem Long-term current use of anticoagulant (284250467) MCC (current) use of anticoagulants (Z79.01) Active confirmed Problem Automatic implantable cardiac defibrillator in situ (799051942) Presence of automatic (implantable) cardiac defibrillator (Z95.810) Active confirmed Problem Lower urinary tract symptoms due to benign prostatic hypertrophy (32564733481142) Benign prostatic hyperplasia with lower urinary tract symptoms (N40.1) Active confirmed Problem Chronic kidney disease stage 3A (disorder) (715491893) Chronic kidney disease, stage 3a (N18.31) Active confirmed Problem Chronic kidney disease stage 3B (disorder) (803267892) Chronic kidney disease, stage 3b (N18.32) Active confirmed Problem Personal history of adenomatous and serrated colon polyps (Z86.0101) Active confirmed Problem Age-related nuclear cataract of right eye (376072465584475) Age-related nuclear cataract, right eye (H25.11) Problem resolved confirmed Problem Age-related nuclear cataract of left eye (998309583653228) Age-related nuclear cataract, left eye (H25.12) Problem resolved confirmed Problem COVID19 RICCARDO-Viru s Identified (U07.1) Problem resolved confirmed Vital Signs Heart Rate 85 /min 10/18/2024 Temperature 96.4 degrees Fahrenheit 10/18/2024 Oximetry 98 % 10/18/2024 Blood pressure diastolic 62 mm Hg 10/18/2024 Height 70 in 10/18/2024 Blood pressure systolic 106 mm Hg 10/18/2024 Weight 188 lbs 10/18/2024 BMI 28.98 kg/m2 04/09/2024 Encounters Encounter Location Date Provider Diagnosis Shana Gould MD [address] [id number] 04/09/2024 Shana Gould Type 2 diabetes mellitus [...] thrombophilia D68.69 ; Atherosclerotic heart disease of [place] coronary artery without angina pectoris I25.10 ; Mixed hyperlipidemia E78.2 ; Obstructive sleep apnea (adult) (pediatric) G47.33 ; Testicular hypofunction E29.1 and Vitamin D deficiency, unspecified E55.9 Shana Gould MD [address] [id number] 08/08/2024 Shana Gould Type 2 diabetes mellitus with [...] thrombophilia D68.69 ; Atherosclerotic heart disease of [place] coronary artery without angina pectoris I25.10 ; Mixed hyperlipidemia E78.2 ; Obstructive sleep apnea (adult) (pediatric) G47.33 ; Testicular hypofunction E29.1 ; Influenza due to other identified influenza virus with other respiratory manifestations J10.1 and Vitamin D deficiency, unspecified E55.9 Shana Gould MD [address] [id number] 10/18/2024 Shana Gould Encounter for genera l adult medical examination without abnormal findings Z00.00 ; Hypertensive heart and chronic kidney disease with heart failure and stage 1 through stage 4 chronic kidney disease, or unspecified chronic kidney disease I13.0 ; Type 2 diabetes mellitus with diabetic chronic kidney disease E11.22 ; Chronic kidney disease, stage 3a N18.31 ; Dilated cardiomyopathy I42.0 ; Chronic systolic (congestive) heart failure I50.22 ; Paroxysmal atrial fibrillation I48.0 ; Other thrombophilia D68.69 ; Atherosclerotic heart disease of [place] coronary artery without angina pectoris I25.10 ; Mixed hyperlipidemia E78.2 ; Obstructive sleep apnea (adult) (pediatric) G47.33 ; Testicular hypofunction E29.1 ; Presence of automatic (implantable) cardiac defibrillator Z95.810 ; Personal history of adenomatous and serrated colon polyps Z86.0101 ; Vitamin D deficiency, unspecified E55.9 ; Encounter for screening for malignant neoplasm of colon Z12.11 ; Encounter for screening for malignant neoplasm of prostate Z12.5 ; Encounter for screening for cardiovascular disorders Z13.6 ; Encounter for immunization Z23 ; Encounter for antibody response examination Z01.84 ; Encounter for screening for other viral diseases Z11.59 ; Sensorineural hearing loss, bilateral H90.3 ; Mild cognitive impairment of uncertain or unknown etiology G31.84 ; Other megaloblastic anemias, not elsewhere classified D53.1 and Immunization not carried out because of patient refusal Z28.21 Shana Gould MD [address] [id number] 09/07/2024 Shana Gould MD [address] [id number] 11/23/2024 Shana Gould Testicular hypofunct ion E29.1 Shana Gould MD [address] [id number] 11/30/2024 Shana Gould Testicular hypofunct ion E29.1 Shana Gould MD [address] [id number] 11/23/2024 Shana Gould Type 2 diabetes mellitus with diabetic chronic kidney disease E11.22 and Testicular hypofunction E29.1 Shana Gould MD [address] [id number] 02/08/2024 Shana Gould MD [address] [id number] 04/20/2024 Edwige Gould MD [address] [id number] 04/20/2024 Edwige Gould MD [address] [id number] 05/15/2024 Shana Gould MD [address] [id number] 05/19/2024 Shana Gould Testicular hypofunct ion E29.1 Sh[facility] [address] [facility] [place], [place] [id number] 05/23/2024 Shana Gould MD PC [address] [facility] [facility] [address] [place], [place] [id number] 06/07/2024 Shana Gould MD PC [address] [facility] [address] [place], [place] [id number] 06/08/2024 Shana Gould MD PC [address] [facility] [address] [place] [address] [id number] 07/11/2024 Shana Gould MD PC [address] [facility] [address] [place] [address] [id number] 07/18/2024 Shana Gould Type 2 diabetes mellitus with diabetic chronic kidney disease E11.22 Shana Gould MD PC [address] [facility] [address] [place] [address] [id number] 08/28/2024 Shana Gould MD PC [address] [facility] [address] [place] [address] [id number] 08/30/2024 Shana Gould Straining to void R39.16 and Benign prostatic hyperplasia with lower urinary tract symptoms N40.1 Shana Gould MD PC [address] [facility] [address] [place] [address] [id number] 09/03/2024 Shana Gould MD PC [address] [facility] [address] [place] [address] [id number] 09/04/2024 Shana Gould MD PC [address] [facility] [address] [place] [address] [id number] 09/10/2024 Shana Gould MD PC [address] [facility] [address] [place] [address] [id number] 09/30/2024 Shana Gould MD PC [address] [facility] [address] [place] [address] [id number] 10/18/2024 Shana Gould Testicular hypofunct ion E29.1 Shana Gould MD PC [address] [facility] [address] [place] [address] [id number] 11/16/2024 Shana Gould Testicular hypofunct ion E29.1 Shana Gould MD PC [address] [place] [address] [id number] 11/16/2024 Shana Gould Type 2 diabetes mellitus with diabetic chronic kidney disease E11.22 Shana Gould MD PC [address] [facility] [address] [place] [address] [id number] 11/22/2024 Shana Gould Testicular hypofunct ion E29.1 Shana Gould MD PC [address] [id number] 11/27/2024 Shana Gould MD [address] [id number] 11/27/2024 Shana Gould Testicular hypofunct ion E29.1 Shana Gould MD [address] [id number] 11/28/2024 Shana Gould MD [address] [id number] 11/29/2024 Shana Gould Testicular hypofunct ion E29.1 Shana Gould MD [address] [id number] 12/03/2024 Shana Gould MD [address] [id number] 12/19/2024 Shana Gould MD [address] [id number] 12/19/2024 Shana Gould MD [address] [id number] 01/13/2025 Shana Gould Assessments Encounter Date Diagnosis (ICD [...] loss 05/19/2024 Testicular hypofunction (ICD-10 - E29.1) 07/18/2024 Type 2 diabetes mellitus with diabetic chronic kidney disease (ICD-10 - E11.22) 08/08/2024 Type 2 diabetes mellitus with diabetic chronic kidney disease (ICD-10 - E11.22) Fair control and stable at present. Can increase Ozempic not only for diabetes management but also for cardiovascular risk reduction 08/08/2024 Hypertensive heart and chronic kidney disease with heart failure and stage 1 through stage 4 chronic kidney disease, or unspecified chronic kidney disease (ICD-10 - I13.0) Stable at present. Continue current medical therapy. He may need to reduce his medical therapy in the future if he has better BMI management with GLP therapy 08/30/2024 Straining to void (ICD-10 - R39.16) 08/30/2024 Benign prostatic hyperplasia with lower urinary tract symptoms (ICD-10 - N40.1) 10/18/2024 Encounter for general adult medical examination without abnormal findings (ICD-10 - Z00.00) General healthcare up-to-date. Check routine labs. He still has not completed his healthcare proxy and multiform. Information given about MOST form and healthcare proxy and contents discussed in terms of decision making and life support measures 10/18/2024 Hypertensive heart and chronic kidney disease with heart failure and stage 1 through stage 4 chronic kidney disease, or unspecified chronic kidney disease (ICD-10 - I13.0) charted as insurance issue stable at present. Continue current medical therapy. 10/18/2024 Testicular hypofunction (ICD-10 - E29.1) 11/16/2024 Testicular hypofunction (ICD-10 - E29.1) 11/16/2024 Type 2 diabetes mellitus with diabetic chronic kidney disease (ICD-10 - E11.22) 11/22/2024 Testicular hypofunction (ICD-10 - E29.1) 11/23/2024 Testicular hypofunction (ICD-10 - E29.1) 11/23/2024 Type 2 diabetes mellitus with diabetic chronic kidney disease (ICD-10 - E11.22) 11/27/2024 Testicular hypofunction (ICD-10 - E29.1) 11/29/2024 Testicular hypofunction (ICD-10 - E29.1) 11/30/2024 Testicular hypofunction (ICD-10 - E29.1) 11/23/2024 Testicular hypofunction (ICD-10 - E29.1) 10/18/2024 Type 2 diabetes mellitus with diabetic chronic kidney disease (ICD-10 - E11.22) He is using his Ozempic. Can recheck status to verify adequate control. Fortunately has also lost weight as a byproduct and side effect. 08/08/2024 Chronic kidney disease, stage 3a (ICD-10 - N18.31) Stable estimated GFR in the 40s. Continue control comorbidity of hypertension and continue GLP therapy as renal protective agent 04/09/2024 Chronic kidney disease, stage 3a (ICD-10 - N18.31) Stable at present with estimated GFR in the 40s. Continue control of comorbidities of hypertension and diabetes 04/09/2024 Dilated cardiomyopathy (ICD-10 - I42.0) Stable and unchanged. His prior echocardiogram showed an ejection fraction of 40%. Continue current disease modifying therapy of Entresto 08/08/2024 Dilated cardiomyopathy (ICD-10 - I42.0) Stable and unchanged. His prior echocardiogram showed an ejection fraction of 40%. Continue current disease modifying therapy of Entresto 10/18/2024 Chronic kidney disease, stage 3a (ICD-10 - N18.31) Stable with estimated GFR in the 40s. Continue control comorbidity of hypertension and diabetes. Continue GLP therapy as GFR preservation agent 10/18/2024 Dilated cardiomyopathy (ICD-10 - I42.0) Stable and unchanged. His ejection fraction is 40% now. Continued disease modifying therapy with Entresto 08/08/2024 Chronic systolic (congestive) heart failure (ICD-10 - I50.22) Symptomatically and biochemically stable. Continue current medical therapy 04/09/2024 Chronic systolic (congestive) heart failure (ICD-10 - I50.22) Symptomatically stable at present. Continue current medical therapy 04/09/2024 Paroxysmal atrial fibrillation (ICD-10 - I48.0) He is paced on exam. Continue chronic anticoagulation. 08/08/2024 Paroxysmal atrial fibrillation (ICD-10 - I48.0) He is paced on exam. Continue chronic anticoagulation. 10/18/2024 Chronic systolic (congestive) heart failure (ICD-10 - I50.22) Symptomatically and biochemically stable. Continue current medical therapy 10/18/2024 Paroxysmal atrial fibrillation (ICD-10 - I48.0) He is paced on exam. Continue chronic anticoagulation. 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 Continue GLP therapy for cardiovascular risk reduction 08/08/2024 Atherosclerotic heart disease of [place] coronary artery without angina pectoris (ICD-10 - I25.10) Stable without any progressive symptoms. 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 Continue control of comorbidities. 08/08/2024 Mixed hyperlipidemia (ICD-10 - E78.2) Controlled with LDL less than 70. Continue current medical therapy 04/09/2024 Mixed hyperlipidemia (ICD-10 - E78.2) Controlled with LDL less than 70. Continue current therapy 04/09/2024 Obstructive sleep apnea (adult) (pediatric) (ICD-10 - G47.33) He needs a new CPAP device. Recommend reevaluation for sleep study 08/08/2024 Obstructive sleep apnea (adult) (pediatric) (ICD-10 - G47.33) He was not able to follow-up with sleep management. There was some concern of double billing and so he did not follow-up with that office. He is continuing to use his old machine 10/18/2024 Mixed hyperlipidemia (ICD-10 - E78.2) His LDL is less than 50. Continue current medical therapy 10/18/2024 Obstructive sleep apnea (adult) (pediatric) (ICD-10 - G47.33) He is still using his old CPAP machine. He continues to use it with benefit. 08/08/2024 Testicular hypofunction (ICD-10 - E29.1) His levels are labile. Can recheck levels. He still has hot flashes and may need to adjust medical therapy if he remains low 04/09/2024 Testicular hypofunction (ICD-10 - E29.1) Stable on prior labs as reviewed. Recheck status 04/09/2024 Vitamin D deficiency, unspecified (ICD-10 - E55.9) Stable on prior labs reviewed. Recheck status and would consider vitamin D supplementation for goal level of 30+ and if possible 50+ 10/18/2024 Testicular hypofunction (ICD-10 - E29.1) Stable on prior labs as reviewed. Can recheck status and continue replacement therapy 08/08/2024 Influenza due to other identified influenza virus with other respiratory manifestations (ICD-10 - J10.1) His had influenza B. He felt ill and stayed in bed because he was significantly ill. This was about 2 weeks ago. He still has some degree of shortness of breath and cough which is a complication of his influenza and this should improve over the next few weeks. 10/18/2024 Presence of automatic (implantable) cardiac defibrillator (ICD-10 - Z95.810) Stable and unchanged 08/08/2024 Vitamin D deficiency, unspecified (ICD-10 - E55.9) Stable on prior labs reviewed. Recheck status and would consider vitamin D supplementation for goal level of 30+ and if possible 50+ 10/18/2024 Personal history of adenomatous and serrated colon polyps (ICD-10 - Z86.0101) Up-to-date on colonoscopy 10/18/2024 Vitamin D deficiency, unspecified (ICD-10 - E55.9) Fair control on prior labs as reviewed. Recheck status and would consider vitamin D supplementation for goal level of 30+ and if possible 50+ 10/18/2024 Encounter for screening for malignant neoplasm of colon (ICD-10 - Z12.11) Up-to-date on colon cancer screening 10/18/2024 Encounter for screening for malignant neoplasm of prostate (ICD-10 - Z12.5) Can check PSA has prostate cancer screening realizing the limitation of this test as a screening test 10/18/2024 Encounter for screening for cardiovascular disorders (ICD-10 - Z13.6) Blood pressure is stable. Can check for comorbidity of hyperlipidemia and hyperglycemia to further assess risk. 10/18/2024 Encounter for immunization (ICD-10 - Z23) He needs a pneumococcal vaccine. Unfortunately his insurance will not cover that in the office and he should get this at the pharmacy 10/18/2024 Encounter for antibody response examination (ICD-10 - Z01.84) He would be considered immune to rubeola by virtue of his age 0810/18/2024 Encounter for screening for other viral diseases (ICD-10 - Z11.59) Can screen for hepatitis C as per general recommendation 10/18/2024 Sensorineural hearing loss, bilateral (ICD-10 - H90.3) Recommend hearing test given association with cognitive impairment. 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 Can check for nutritional deficiencies 10/18/2024 Immunization not carried out because of patient refusal (ICD-10 - Z28.21) 08/08/2024 Other This note was created with voice dictation recognition software and may contain errors of grammar and syntax. Also labs were reviewed with patient. 04/09/2024 Other This note was created with voice dictation recognition software and may contain errors of grammar and syntax. Also labs were reviewed with patient. 10/18/2024 Other This note was created with voice dictation recognition software and may contain errors of grammar and syntax. Also labs were reviewed with patient. Plan Of Treatment Pending Test Test Name Order Date 25OH VITAMIN D 09/22/2020 CITRATED PLATELET COUNT 09/22/2021 COMPLETE CBC WITH DIFF 09/22/2020 COMPLETE CBC WITH DIFF 09/20/2018 COMPLETE CBC WITH DIFF 04/10/2018 COMPLETE URINALYSIS 04/10/2018 COMPLETE URINALYSIS 09/22/2020 COMPREHENSIVE METABOLIC PANEL 08/13/2018 COMPREHENSIVE METABOLIC PANEL 04/15/2022 COMPREHENSIVE METABOLIC PANEL 04/10/2018 COMPREHENSIVE METABOLIC PANEL 08/08/2018 COMPREHENSIVE METABOLIC PANEL 09/22/2020 COMPREHENSIVE METABOLIC PANEL 04/11/2019 COMPREHENSIVE METABOLIC PANEL 09/20/2018 CREAT CLEARANCE 09/20/2018 FREE T4 09/20/2018 FREE TESTOSTERONE 09/20/2018 FREE TESTOSTERONE 09/22/2020 HEMOGLOBIN A1C,DIAGNOSTIC 04/11/2019 HEMOGLOBIN A1C,DIAGNOSTIC 04/10/2018 LIPID PANEL W REFLEX TO DLDL 09/22/2020 LIPID PANEL W REFLEX TO DLDL 04/11/2019 MAGNESIUM 04/15/2022 PROBNP 08/13/2018 PROBNP 09/20/2018 PROBNP 08/08/2018 PROBNP 09/22/2020 PROBNP 04/11/2019 PROBNP 04/10/2018 PSA 09/22/2020 TESTOSTERONE 09/22/2020 TESTOSTERONE 04/06/2017 TESTOSTERONE 02/13/2016 TSH 09/20/2018 UREA CLEARANCE 09/20/2018 URINARY MICROALBUMIN 04/10/2018 URINARY MICROALBUMIN 09/22/2020 Xray: Knee Left (Standard, 4 Views) 07/2016 VITAMIN D, 25-HYDROXY 04/13/2022 VITAMIN D, 25-HYDROXY 09/22/2021 VITAMIN D, 25-HYDROXY 05/25/2021 VITAMIN D, 25-HYDROXY 01/26/2021 ANTI-HEPATITIS C W/RFLX HCV QNT 09/23/19 22 MMR (MEASLES, MUMPS, RUBELLA) IGG TITER 08/08/2018 Hemoglobin S1r-016339 10/18/2024 Vitamin S04-684880 10/18/2024 Immunofixation, Serum-052091 10/18/2024 Folate (Folic Acid), Serum-776370 2024 Urinalysis, Complete-299251 10/18/2024 TSH-306070 10/18/2024 CBC With Differential/Platelet-514715 Prostate-Specific Ag-762752 10/18/2024 Testosterone, F Eqlib+T LC/MS-783660 Vitamin D, 95-Nhzydwo-367075 10/18/2024 Albumin/Creatinine Ratio,Urine-347312 B-Type Natriuretic Peptide-956362 2024 Comp. Metabolic Panel (14)-205002 2024 LP+Non-HDL Cholesterol-287954 10/18/2024 APOE Alzheimer's Risk-955847 10/18/2024 Phosphatidylethanol (PEth)-258867 2024 HCV Antibody-902848 10/18/2024 Esoterix Informed Consent Form 5 Phosphorylated Tau 217 (pTau-217) 2024 TISSUE EXAM 11/12/2024 Future Test Test Name Order Date COMPLETE URINALYSIS 10/16/2018 COMPREHENSIVE METABOLIC PANEL 10/16/2018 PROBNP 10/16/2018 Next Appt Details Provider Name:Shana Gould , 02/14/2025 01:30:00 PM, [address] [facility], [place] [address], [place], [place], [phone], Provider Name:Shana Gould , 10/29/2025 01:30:00 PM, [address] [facility], [place] [address], [place], [place], [phone], Insurance Providers Payer Name Payer Address Payer Phone Subscriber Number Group Number Insured Name Patient Relationship to Insured Coverage Start Date Coverage End Date Person [facility] [address] [place] [address] [id number] Bogdan Curtis Self - patient is the insured 0 MEDICARE [address] [place] [address] [id number] Bogdan Curtis Self - patient is the insured 2 Medical (General) History Medical History History ICD Code Brachial neuritis or radiculitis NOS Dilated cardiomyopathy I42.0 Chronic systolic (congestive) heart fail ure I50.22 Chronic kidney disease, stage 2 (mild) N 18.2 Obstructive sleep apnea (adult) (pediatr ic) G47.33 Testicular hypofunction E29.1 Atherosclerotic heart diseas e of [place] coronary artery without angina pectoris I25.10 Paroxysmal atrial fibrillation I48.0 Type 2 diabetes mellitus with diabetic c hronic kidney disease E11.22 MCC (current) use of anticoagulant s Z79.01 Derangement [...] nuclear cataract, left eye ( resolved 09/22/2020) COVID19 RICCARDO-Virus Identified (resolved 0 08/08/2024) undefined Surgical History Surgery Date(Month/Year) LAD Angioplasty ICD insertion Appendectomy Inguinal Hernia Repair, RIGHT cataract-lens implants, LT 08/2019 cataract-lens implants, RT 08/2019 Hospitalization History Reason Date(Month/Year)"
--- OUTSIDE RECORDS SUMMARY | 2025-01-15 04:03 | XMS_ITS | Data Portability ---
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 Role Phone [email or web address] Primary Care Provider [phone] Assessment Encounter Date Assessment Date Assessment LastModified [...] Knee Pain 2022 023 [email or web address] [facility], [address], [place], [address], 15:29:50 XR, knee, 1 or 2 view - Right Knee Pain 2022 023 [email or web address] [facility], [address], [place], [address], 3 15:29:50 XR, knee, weightbeari ng - Bilateral Knee Pain 2022 023 [email or web address] [facility], [address], [place], [address], 3 15:29:50 Medication Orders Marcaine (PF) 0.5 % (5 mg/mL) injection solution 2022 023 [email or web address] [id number], [address] [place], [address], 3 15:29:50 lidocaine (PF) 100 mg/5 mL (2 %) injection syringe 2022 023 [email or web address] [id number], [address] [place], [address], 3 15:29:50 Kenalog 40 mg/mL suspension for injection 2022 023 [email or web address] [id number], [address] [place], [address], 3 15:29:50 Marcaine (PF) 0.5 % (5 mg/mL) injection solution 2022 023 [email or web address] [facility], [address] [place] [address], [address], 3 15:29:50 lidocaine (PF) 100 mg/5 mL (2 %) injection syringe 2022 023 [email or web address] [facility], [address] [place] [address], [address], 3 15:29:50 Kenalog 40 mg/mL suspension for injection 2022 023 [email or web address] [facility], [address] [place], [address], 3 15:29:50 Patient TargetsNo targets recorded. Patient Instructions Encounter Date Encounter Id Patient Instructions Last Modified By Organization Details Last Modified Time 08/13/2022 [id number] AP, lateral, Dawson, and patellar view radiographs [...] Name and Address Organization Details Recorded Time Pain of left knee joint 80544406925 4107 Active 2016 Arthralgi a of left knee Not Available [facility] 5 23:22:20 Shoulder joint pain 980748579 Active 2016 Arthralgi a of left shoulder region Not Available [facility] 5 23:22:21 Coracoid impingeme nt 630880775 Active 2017 Coracoid impingeme nt of right shoulder Not Available [facility] 5 23:22:20 Arthritis of knee 341799146 Active 2017 Allergic arthritis of left knee Not Available [facility] 5 23:22:21 Primary gonarthro sis, bilateral 759473660 Active 2019 Primary osteoarth ritis of both knees Not Available [facility] 5 23:22:21 Osteoarth ritis of right knee joint 23257542771 9100 Active 2022 Bowen Segovia MD [address] [facility] [address], [place], [address] , [place] [facility] 3 13:48:22 Osteoarth ritis of left knee joint 54359864358 9109 Active 2022 Bowen Segovia MD [address] [facility] [address], [place], [address] , [place] [facility] 3 13:48:26 Problem Notes None recorded. Procedures Surgical History Date Name Laterality Status Provider Name and Address Organization Details Recorded Time 3 MJG Knee Injection w/o US completed Bowen Segovia MD [address] [facility] [address], [place], [address], [place] [facility] 08/13/2022 13:49:26 Imaging Results None recorded. Procedure Notes None recorded. Medical Equipment None Reported. 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 active Not Available Not Available No t Available carvedilol 12.5 mg tablet Take 12.5 mg by mouth 2 (two) times a day with meals. active Not Available Not Available No t Available amiodarone 200 mg tablet Take 200 mg by mouth daily. active Not Available Not Available No t Available venlafaxine 25 mg tablet Take 25 mg by mouth 2 (two) times a day. active Not Available Not Available No t Available isosorbide mononitrate ER 30 mg tablet,exte nded release 24 hr Take 30 mg by mouth daily. active Not Available Not Available No t Available spironolact one 100 mg tablet Take 100 mg by mouth daily. active Not Available Not Available No t Available venlafaxine ER 150 mg capsule,ext ended release 24 hr 2020 active Not Available Not Available Not Avai lable clopidogrel 75 mg tablet Take 75 mg by mouth daily. active Not Available Not Available No t Available pentoxifyll ine ER 400 mg tablet,exte nded release TAKE 1 TABLET BY MOUTH TWICE A DAY active Not Available Not Available No t Available glimepiride 2 mg tablet Take 2 mg by mouth every morning before breakfast . active Not Available Not Available No t Available Kenalog 40 mg/mL suspension for injection Take 1 mL by injection route. 2022 active Not Available Not Available Not Avai lable tamsulosin 0.4 mg capsule Take 0.4 mg by mouth daily. active Not Available Not Available No t Available methylpredn isolone acetate 40 mg/mL suspension for injection 05/04 completed Not Available Not Available Not Available gabapentin 300 mg capsule Take 300 mg by mouth 3 (three) times a day. 2017 active Not Available Not Available Not Avai lable aspirin 81 mg chewable tablet Chew 81 mg by mouth daily. 2018 active Not Available Not Available Not Avai lable zolpidem 5 mg tablet Take 5 mg by mouth every night at bedtime as needed for sleep. active Not Available Not Available No t Available furosemide 20 mg tablet Take 20 mg by mouth 2 (two) times a day. active Not Available Not Available No t Available zolpidem 10 mg tablet TAKE 1 TABLET BY MOUTH EVERY DAY AT BEDTIME NEEDED active Not Available Not Available No t Available ketoconazol e 2 % topical cream APPLY TO AFFECTED AREA TWICE A DAY active Not Available Not Available No t Available fluticasone propionate 50 mcg/actuati on nasal spray,suspe nsion spray/catrachito ly 1 spray in each nostril daily. active Not Available Not Available No t [...] t Available rosuvastati n 40 mg tablet Take 40 mg by mouth daily. active Not Available Not Available No t Available Marcaine (PF) 0.5 % (5 mg/mL) injection solution Take 4 mL by injection route. 2022 active Not Available Not Available Not Avai lable pregabalin 100 mg capsule Take 100 mg by mouth 2 (two) times a day. active Not Available Not Available No t Available lidocaine (PF) 10 mg/mL (1 %) injection solution 11/15 completed Not Available Not Available Not Available testosteron e 20.25 mg/1.25 gram per pump act.(1.62 %) transdermal gel APPLY 4 PUMPS TO AFFECTED ON SKIN IN THE MORNING ONCE A DAY active Not Available Not Available No t Available lidocaine (PF) 100 mg/5 mL (2 %) injection syringe Take 4 mL by injection route. 2022 active Not Available Not Available Not Avai lable testosteron e 1.62 % (20.25 mg/1.25 gram) transdermal gel packet Place onto the skin. active Not Available Not Available No t Available apixaban 5 mg tablet Take 5 mg by mouth. active Not Available Not Available No t Available Invokana 300 mg tablet TAKE 1 TABLET BEFORE THE FIRST MEAL OF THE DAY ONCE A DAY ORALLY 30 DAY(S) 2019 active Not Available Not Available Not Avai lable Farxiga 10 mg tablet TAKE 1 TABLET [...] Address Organization Details Last Updated DateTime 08/13/2022 45212.77 g 32.5 kg/m2 172.[address] [place] [facility], 08/13/2022 13:35:07 Date Recorded Body height Body mass index (BMI) Body weight Provider Name and Address Organization Details Last Updated DateTime 11/15/2022 172.72 cm 32.5 kg/m2 [address]8850.[address] [place] [facility] 11/15/2022 13:44:59 Social History None recorded. Functional Status None recorded. Mental Status None recorded. Family History Relationship Description Onset Age of this Age Resolved Age Notes LastModified by Organization Details LastModified Time Father Family history of malignant neoplasm [email or web address] Not available 11/15 13:45:38 Medical History Condition Response Coronary Artery Disease N Gout N Hyperthyroidism N MRSA N Blood Transfusion N Emphysema N COPD N Depression N Hypothyroidism N Pacemaker N Vascular Disease N Gastrointestinal Disease N Anxiety Disorder N Autoimmune disease N Arthritis N Cancer N Stroke Y High Cholesterol N Neurologic Disorder N Liver Disease N Organ Transplant N Arrhythmia N Rheumatoid Arthritis N Fibromyalgia N Kidney Disease N Allergies/Hayfever N Adverse Reaction to Anesthesia N Thyroid Problems N Anemia N Brain Injury N Heart Attack (NH) N Osteopenia N Diabetes Y Bleeding Disorder N Seizures/Epilepsy N AIDS/HIV N Congestive Heart Failure (CHF) N Asthma N Amputation N Reflux/GERD N Sleep Apnea N Hepatitis N Aneurysm N Heart Disease Y Pulmonary Embolism N Hypertension Y Osteoporosis N Past Encounters Encounter ID Performer Location Encounter Start Date Encounter Closed Date Diagnosis/Indication Diagnosis SNOMED-CT Code Diagnosis ICD10 Code Diagnosis IMO Codes Diagnosis Note [id number] MD DOM Santamaria [facility] [address] [address] 08/13/2022 13:21:02 08/13/2022 13:48:26 Pain of bilateral knee joints 6126288885 77808 M25.561 M25.562 Osteoarthr itis of right knee joint 5441406646 94077 M17.11 Osteoarthr itis of left knee joint 8050153171 83464 M17.12 [id number] TJ MARTÍNEZ [facility] [address] [address] 11/15/2022 13:37:30 11/15/2022 14:35:31 Osteoarthritis of left knee joint 8486244782 21150 M17.12 Osteoarthr itis of right knee joint 0176941568 12403 M17.11 Health Concerns Section Related Observation LastModified by Organization Detai ls LastModified Time None Recorded Concern Status LastModified by Organization Details LastModified Time None Recorded Advance Directives Directive None Recorded Payers Insurance Date Sequence Insurance Name Policy Number Policy Singh Covered Member ID Singh Member ID Guarantor Name 11/12/2022 1 [facility] [id number] Bogdan Curtis [id number] Bogdan Curtis 11/12/2022 2 MEDICARE B-AZ: [facility] [employer] Bogdan Curtis [id number] Bogdan Curtis Notes Date Note Type Note Provider Name and Address Organization Details Recorded Time 08/13/2022 text/html HPI: Patient is here today with complaints of bilateral knee pain. T he patient is experiencing bilateral knee pain, which [...] or persistent local or systemic infection. Physical Exam: Patient is well nourished, well-developed, in no acute distress, with appropriate mood and affect. The patient is oriented to time, place, and person. Bilateral knee motion is reduced and does cause significant pain. The right knee moves from 0-130 degrees and the left knee moves from 0-130 degrees. The knees are stable within those [id number]. The alignment of the right knee is neutral. The alignment of the left knee is neutral. Knee muscle strength is normal bilaterally with the skin intact. Pedal pulses are palpable. Hip examination, including flexion and internal rotation, was negative in that groin pain was not produced. Assessment/Plan: The patient has mild to moderate bilateral [...] months. Hayley singleton, [place] - [facility] 08/13/2022 13:57:49 11/15/2022 text/html 67-year-old male [...] a physical therapy order but declines. JANIE MARTÍNEZ-C [address], [place], [address], [place] [facility] 11/15/2022 14:07:44
== END 2025-01-14 14:48 | disposition home or self-care (01) ==
LOC: HO.HOS 14:13
PROVIDERS: Visit Provider Orthopaedic Surgery
DX: M53.3 Sacrococcygeal disorders, not elsewhere classified (principal); G89.29 Other chronic pain; M17.0 Bilateral primary osteoarthritis of knee
CPT/HCPCS: 20610; 99213

== ENCOUNTER → 2025-01-14 14:12 | Outpatient (BNVA) | payer OTHER, MEDICARE, SELFPAY | PROVIDERS: Visit Provider Orthopaedic Surgery | DX: M17.0 Bilateral primary osteoarthritis of knee (principal) | CPT/HCPCS: 20610; J1010; J2003 ==

== ENCOUNTER 2025-02-13 14:49 | Outpatient (AMB) | payer OTHER, MEDICARE, SELFPAY ==
--- OUTSIDE RECORDS SUMMARY | 2024-11-23 08:56 | XMS_ITS ---
Author Organization Shana Gould MD Address [address] [place] [id number] Care Team Providers Care Business Process Expert Name Role Phone Shana Gould Primary Care Provider [phone] REASON FOR VISIT problem Sury fernandez with the prescripions Medications Medication SIG (Take, Route, Frequency, Duration) Notes Start Date End Date Status Testosterone 20.25 MG/ACT (1.62%) 4 pump to skin in the morning to shoulder, upper arms Transdermal Once a day; Duration: 30 days 11/23/2024 Active Ozempic (2 MG/DOSE) 8 MG/3ML 2 mg Subcutaneous Once a Week; Duration: 90 days 08/08/2024 11/22/2025 Active Encounters Encounter Location Date Provider Diagnosis Shana Gould MD [address] [phone] 11/23/2024 Shana Gould Type 2 diabetes mellitus with diabetic chronic kidney disease E11.22 and Testicular hypofunction E29.1 Assessments Encounter Date Diagnosis (ICD Code) Assessment Notes Treatment Notes Treatment Clinical Notes Section Notes 11/23/2024 Type 2 diabetes mellitus with diabetic chronic kidney disease (ICD-10 - E11.22) 11/23/2024 Testicular hypofunction (ICD-10 - E29.1) Plan Of Treatment Medication Medication Name Sig Start Date Stop Date Notes Testosterone 20.25 MG/ACT (1.62%) 4 pump to skin in the morning to shoulder, upper arms Transdermal Once a day; Duration: 30 days 11/23/2024 Ozempic (2 MG/DOSE) 8 MG/3ML 2 mg Subcut aneous Once a Week; Duration: 90 days 08/08/2024 11/22/2025 Next Appt Details Provider Name:Shana Gould , 02/14/2025 01:30:00 PM, [address] [place] [address], [address], [phone], Provider Name:Shana Gould , 10/29/2025 01:30:00 PM, [address] [place] [address], [address], [phone], Progress Notes * ALDA Bogdan ADOB: (69 yo M)Acc No.[id number]:11/23/2024 Patient: Bogdan HARRIS :1955 A ge:69 Y S ex:Male Address:[address] [place] [address], [id number] * Refills Refill Ozempic (2 MG/DOSE) Solution Pen-injector, 8 MG/3ML, Subcutaneous, 3, 2 mg, Once a Week, 90 days, Refills=3 Refill Testosterone Gel, 20.25 MG/ACT (1.62%), Transdermal, 2, 4 pump to skin in the morning to shoulder, upper arms, Once a day, 30 days, Refills=2 Subjective: * Chief Complaints: * luzmaria fernandez with the prescripions * Medical History: * Surgical History: * Hospitalization/Major Diagno stic Procedure: * Medications: * Allergies: n o[Allergies Verified] Objective: * Vitals: Past Vitals:* 10/18/2024 Temp:96.4F, HR:85/min, BP:Si tting Right Arm: 106/62mm Hg, Wt:188lbs, Ht:70in, Oxygen sat %:98% * 08/08/2024 Temp:96.4F, HR:73/min, Wt:19 4lbs, Oxygen sat %:98% * 04/09/2024 Temp:95.2F, HR:94/min, BP:Si tting Right Arm: 116/66mm Hg, Wt:202lbs, BMI:28.98Index, Ht:70in, Oxygen sat %:96% * Physical Examination: Assessment: * Assessment: 1. T ype 2 diabetes mellitus with diabetic chronic kidney disease - E11.22 2 .?Testicular hypofunction - E29.1 Plan: * Treatment: 2. T esticular hypofunction Refill Testosterone Gel, 20.25 MG/ACT (1.62%), 4 pump to skin in the morning to shoulder, upper arms, Transdermal, Once a day, 30 days, 2, Refills 2. * Procedure Codes: * * Date:
--- NOTE | 2025-02-13 14:53 | MHC.OFFVIS ---
Vital Signs 02/13/25 14:55 Height 5 ft 9 in Weight 186 lb BMI 27.5 BP 141/91 H Blood Pressure Location Rt brachial Position Sitting Respiration 16 Pulse 91 Pulse Source Pulse Oximeter Pulse Oximetry (%) 97 Oxygen Delivery Method Room Air Intake Visit Reasons: Sacrococcygeal disorders, not elsewhere classifie Agricultural Research Technologist Required: No Accompanied by: Self / Same As Patient Allergies No Known Allergies Allergy (Verified 02/13/25 14:57) HPI Comments Details: Bogdan is very pleasant 69 years old gentleman who presents in my office upon referral of Dr. Fofana with diagnosis of sacrococcygeal disorder. He was under care of Dr. Fofana with knee problems and received knee injections. Started to complain On the lower back pain 6 months ago. he reports his pain is 2 to 8/10. He reports most significant pain when he is sitting down or standing up from sitting positioned. Because of his pain he can not sleep normally can not do activities of daily living he is able to take care of himself but he can not function normally. He is retired individual. He is self mobile. Movements aggravate his pain. In terms of tissue damage he describes his pain as tight squeezing and tearing sensation. He never had any images of the lumbar spine. She never had any physical therapy. He received only knee injections. His past medical history significant for history of hypertension history of stroke prostate problems history of heart murmur, he is diabetic and he is on blood thinners for AFib. He is able to stop his blood thinners for short period of time. His past surgical history significant for pacemaker insertion, stent placement for heart attack, history of eye surgery and history of appendectomy as a child. He denies smoking cigarettes denies drinking alcohol he denies coffee and caffeinated beverages but he admits cannabis. [facility] Medical History (Updated 02/13/25 @ 15:24 by Raghav Monsivais MD) Arthritis of right knee Arthritis of left knee Social History Patient Tobacco Use Status: Never used Tobacco Current occupational status: retired and disabled Current occupation: rt hand Review of Systems Const All systems reviewed & are unremarkable except as noted in HPI and below Physical Exam Vital Signs: Last Vital Signs Pulse 91 02/13/25 14:55 Resp 16 02/13/25 14:55 BP 141/91 H 02/13/25 14:55 Pulse Ox 97 02/13/25 14:55 Oxygen Delivery Method Room Air 02/13/25 14:55 BMI result Body Mass Index 27.5 Back/Spine/Pelvis Other: SLR is equivocal on the right and negative on the left, Ramos test is positive on the right, pelvic compression test is positive on the right, pelvic distraction test is positive on the right, there is tenderness on palpation in projection of the right sacroiliac joint. There is no tenderness on palpation in the projection of the lumbar spine. He is able to flex himself forward however with difficulty and he is able to flex himself backwards. Assessment & Plan Assessment & Plan (1) Sacroiliitis: Code(s): M46.1 - Sacroiliitis, not elsewhere classified Category: Medical (2) Sacroiliac joint dysfunction of right side: Code(s): M53.3 - Sacrococcygeal disorders, not elsewhere classified Category: Medical (3) Spondylosis without myelopathy or radiculopathy, lumbar region: Code(s): M47.816 - Spondylosis without myelopathy or radiculopathy, lumbar region Category: Medical Plan 1. I will schedule this patient for diagnostic sacroiliac joint injection. 2. I will schedule him for Physical therapy for sacroiliac joint problem. 3. I will send this patient for x-ray of the lumbar spine and x-ray of the pelvis . 4. I will see this patient in the office after diagnostic sacroiliac joint injection. Orders: Orders XR lumbar spine 4V min Today M47.816 - Spondylosis without myelopathy or radiculopathy, lumbar region PT Evaluation and Treatment Today M46.1 - Sacroiliitis, not elsewhere classified, M53.3 - Sacrococcygeal disorders, not elsewhere classified Coding Level of Care Code New Pt Level 3 (31442) Diagnoses Sacroiliitis M46.1 Sacroiliac joint dysfunction of right side M53.3 Spondylosis without myelopathy or radiculopathy, lumbar region M47.816
[2025-02-13 14:55] VITALS: BP 141/91; PULSE 91; RESP 16; O2SAT 97; BMI 27.5
--- OUTSIDE RECORDS SUMMARY | 2025-02-13 19:44 | XMS_ITS | Encounter Summary ---
Author Organization [facility] Address [address] [facility] [place] [address] Phone Care Team Providers Care Cash Manager Name Role Phone Kassandra Gould MD Primary Care Provider [phone] Joel Haddad MD Unavailable [phone] Lien Rodriguez Unavailable [email or web address] Kassandra Gould MD Unavailable [phone] Axel Salcido MD Unavailable [phone] Encounter Details Date Type Department Care Team (Late st Contact Info) Description 07/07/2020 Procedure Pass Debra Crane [facility] [address] [place] [address] [place], [place] [phone] Social History Tobacco Use Types Packs/Day Years Used Date Smoking Tobacco: Former Cigarettes Q uit: 1988 Smokeless Tobacco: Never Alcohol Use Standard Drinks/Week Comments No 0 (1 standard drink = 0.6 oz pur e alcohol) Sex and Gender Information Value Date Recorded Sex Assigned at Not on file Legal Sex Male 9:55 PM EDT Gender Identity Not on file Sexual Orientation Not on file documented as of this encounter Plan of Treatment Upcoming Encounters Date Type Department Care Team (Late st Contact Info) Description 06/04/2025 12:30 PM EDT Office Visit Debra Crane [facility] [address], [address] [place], [place] [phone] Yulisa Meier, DONTAE [address] [facility], [address] [place], [place] [phone] documented as of this encounter Visit Diagnoses Not on filedocumented in this encounter Care Teams Cash Manager Relationship Specialty Start Date End Date Kassandra Gould MD [address] [address] [email or web address] PCP - General 12/16/16 Joel Haddad MD [address] [address] [email or web address] Historical LMR Provider 12/16/16 Lien Rodriguez PA Historical LMR Provider 12/16/16 03/07/21 Kassandra Gould MD [address] [address] [email or web address] Historical LMR Provider 12/16/16 Axel Salcido MD [address] [place] [address], [address] [address] [email or web address] Historical LMR Provider 12/16/16 03/07/21 documented as of this encounter Additional Source Comments The information contained in this document represents components of the legal health record. It is not the complete legal health record.[facility]
--- OUTSIDE RECORDS SUMMARY | 2025-02-13 19:44 | XMS_ITS | Encounter Summary ---
Author Organization [facility] Address [address] [place] [address] Phone Care Team Providers Care Dry Cleaner Apprentice Name Role Phone Kassandra Gould MD Primary Care Provider [phone] Joel Haddad MD Unavailable [phone] Encounter Details Date Type Department Care Team (Late Contact Info) Description 10/27/2022 Procedure Pass Debra Crane Non-Invasive Cardiology [address] [place] [address] Social History Tobacco Use Types Packs/Day Years [...] Encounters Date Type Department Care Team (Late Contact Info) Description 06/04/2025 12:30 PM EDT Office Visit Debra Crane [facility] [address], [address] [place] [address] Yulisa Meier, DNP [address] [facility], [address] [place] [address] [email or web address] documented as of this encounter Visit Diagnoses Not on filedocumented in this encounter Care Teams Dry Cleaner Apprentice Relationship Specialty Start Date End Date Kassandra Gould MD [address] [address] [email or web address] PCP - General 12/16/16 Joel Haddad MD [address] [address] [email or web address] Historical LMR Provider 12/16/16 documented as of this encounter Additional Source Comments The information contained in this document represents components of the legal health record. It is not the complete legal health record.[facility]
--- OUTSIDE RECORDS SUMMARY | 2025-02-13 19:44 | XMS_ITS | Data Portability ---
Author Organization [place] [facility] [place] Address [address] [place] [address] Care Team Providers Care Channeler Runner Name Role Phone [email or web address] Primary Care Provider [phone] Assessment Encounter Date Assessment Date Assessment LastModified [...] Knee Pain 2022 023 [email or web address] [facility], [address], [place], [address], 15:29:50 XR, knee, 1 or 2 view - Right Knee Pain 2022 023 [email or web address] [facility], [address], [place], [address], 3 15:29:50 XR, knee, weightbeari ng - Bilateral Knee Pain 2022 023 [email or web address] [facility], [address], [place], [address], 3 15:29:50 Medication Orders Marcaine (PF) 0.5 % (5 mg/mL) injection solution 2022 023 [email or web address] [id number], [address] [place], [address], 3 15:29:50 lidocaine (PF) 100 mg/5 mL (2 %) injection syringe 2022 023 [email or web address] [id number], [address] [place], [address], 3 15:29:50 Kenalog 40 mg/mL suspension for injection 2022 023 [email or web address] [id number], [address] [place], [address], 3 15:29:50 Marcaine (PF) 0.5 % (5 mg/mL) injection solution 2022 023 [email or web address] [facility], [address] [place] [address], [address], 3 15:29:50 lidocaine (PF) 100 mg/5 mL (2 %) injection syringe 2022 023 [email or web address] [facility], [address] [place] [address], [address], 3 15:29:50 Kenalog 40 mg/mL suspension for injection 2022 023 [email or web address] [facility], [address] [place], [address], 3 15:29:50 Patient TargetsNo targets recorded. Patient Instructions Encounter Date Encounter Id Patient Instructions Last Modified By Organization Details Last Modified Time 08/13/2022 [id number] AP, lateral, Dawson, and patellar view radiographs [...] Recorded Time Pain of left knee joint 38573826892 4107 Active 2016 Arthralgi a of left knee Not Available [facility] 5 23:22:20 Shoulder joint pain 848842376 Active 2016 Arthralgi a of left shoulder region Not Available [facility] 5 23:22:21 Coracoid impingeme nt 439450136 Active 2017 Coracoid impingeme nt of right shoulder Not Available [facility] 5 23:22:20 Arthritis of knee 581675646 Active 2017 Allergic arthritis of left knee Not Available [facility] 5 23:22:21 Primary gonarthro sis, bilateral 728096096 Active 2019 Primary osteoarth ritis of both knees Not Available [facility] 5 23:22:21 Osteoarth ritis of right knee joint 31625884007 9100 Active 2022 Bowen Segovia MD [address] [facility] [address], [place], [address] , [place] [facility] 3 13:48:22 Osteoarth ritis of left knee joint 55056299104 9109 Active 2022 Bowen Segovia MD [address] [facility] [address], [place], [address] , [place] [facility] 3 13:48:26 Problem Notes None recorded. Procedures Surgical History Date Name Laterality Status Provider Name and Address Organization Details Recorded Time 3 MJG Knee Injection w/o US completed Bowen Segovia MD [address] [facility] [address], [place], [address], [place] [facility] 08/13/2022 13:49:26 Imaging Results None recorded. Procedure Notes None recorded. Medical Equipment None Reported. Allergies No known drug allergies Medications Name Sig Start Date Stop Date Status Note LastModified by Organization Details LastModified Time on/go covid-19 antigen self-test kit 11/15 completed Not Available Not Available Not Available car pilot covid-19 at-home test kit active Not [...] Address Organization Details Last Updated DateTime 08/13/2022 34146.77 g 32.5 kg/m2 172.[address] [place] [facility], 08/13/2022 13:35:07 Date Recorded Body height Body mass index (BMI) Body weight Provider Name and Address Organization Details Last Updated DateTime 11/15/2022 172.72 cm 32.5 kg/m2 15456.[address] [place] [facility] 11/15/2022 13:44:59 Social History None recorded. Functional Status None recorded. Mental Status None recorded. Family History Relationship Description Onset Age of this Age Resolved Age Notes LastModified by Organization Details LastModified Time Father Family history of malignant neoplasm Not available 11/15 13:45:38 Medical History Condition Response Coronary Artery Disease N Gout N Hyperthyroidism N MRSA N Blood Transfusion N Emphysema N Depression N COPD N Hypothyroidism N Pacemaker N Vascular Disease N Gastrointestinal Disease N Anxiety Disorder N Autoimmune disease N Arthritis N Cancer N Stroke Y High Cholesterol N Neurologic Disorder N Liver Disease N Organ Transplant N Rheumatoid Arthritis N Arrhythmia N Fibromyalgia N Kidney Disease N Allergies/Hayfever N Adverse Reaction to Anesthesia N Thyroid Problems N Anemia N Brain Injury N Heart Attack (NE) N Osteopenia N Diabetes Y Bleeding Disorder [...] ICD10 Code Diagnosis IMO Codes Diagnosis Note [id number] MD DOM Santamaria [facility] [address] [address] 08/13/2022 13:21:02 08/13/2022 13:48:26 Pain of bilateral knee joints 0231781805 61976 M25.561 M25.562 Osteoarthr itis of right knee joint 7551420476 75118 M17.11 Osteoarthr itis of left knee joint 4995749828 97370 M17.12 [id number] TJ MARTÍNEZ [facility] [address] [address] 11/15/2022 13:37:30 11/15/2022 14:35:31 Osteoarthritis of left knee joint 8014226935 65607 M17.12 Osteoarthr itis of right knee joint 7078566040 83507 M17.11 Health Concerns Section Related Observation LastModified by Organization Detai ls LastModified Time None Recorded Concern Status LastModified by Organization Details LastModified Time None Recorded Advance Directives Directive None Recorded Payers Insurance Date Sequence Insurance Name Policy Number Policy Singh Covered Member ID Singh Member ID Guarantor Name 11/12/2022 1 [facility] [id number] Bogdan Curtis [id number] Bogdan Curtis 11/12/2022 2 MEDICARE B-VA: [facility] [employer] Bogdan Curtis [id number] Bogdan Curtis Notes Date Note Type Note [...] degrees. The knees are stable within those [id number]. The alignment of the right knee is [...] months. Hayley singleton, [place] [facility] 08/13/2022 13:57:49 11/15/2022 text/html 67-year-old male [...] declines. JANIE MARTÍNEZ-C [address], [place], [address], [place] [facility] 11/15/2022 14:07:44
--- OUTSIDE RECORDS SUMMARY | 2025-02-13 19:44 | XMS_ITS | Encounter Summary ---
Author Organization [facility] Address [address] [facility] [address] [place] [address] Phone Care Team Providers Care Staff Research Scientist Name Role Phone Kassandra Gould MD Primary Care Provider [phone] Joel Haddad MD Unavailable [phone] Lien Rodriguez Unavailable [email or web address] Kassandra Gould MD Unavailable [phone] Axel Salcido MD Unavailable [phone] Encounter Details Date Type Department Care Team (Late st Contact Info) Description 02/23/2020 Procedure Pass Debra [facility] [address] [place] [address] [place], [place] [phone] Social History Tobacco Use Types Packs/Day Years [...] 12:30 PM EDT Office Visit Debra Crane [facility] [address], [address] [place], [place] [phone] Yulisa Meier, DONTAE [address] [facility], [address] [place], [place] [phone] documented as of this encounter Visit Diagnoses Not on filedocumented in this encounter Care Teams Staff Research Scientist Relationship Specialty Start Date End Date Kassandra Gould MD [address] [address] [email or web address] PCP - General 12/16/16 Joel Haddad MD [address] [address] [email or web address] Historical LMR Provider 12/16/16 Lien Rodriguez PA Historical LMR Provider 12/16/16 03/07/21 Kassandra Gould MD [address] [address] [email or web address] Historical LMR Provider 12/16/16 Axel Salcido MD [address] [place] [address], [facility] [address] [place] [address] Historical LMR Provider 12/16/16 03/07/21 documented as of this encounter Additional Source Comments The information contained in this document represents components of the legal health record. It is not the complete legal health record.[facility]
--- OUTSIDE RECORDS SUMMARY | 2025-02-13 19:44 | XMS_ITS | Encounter Summary ---
Author Organization [facility] Address [address] [place] [address] Phone Care Team Providers Care Seat Nailer Name Role Phone Kassandra Gould MD Primary Care Provider [phone] Joel Haddad MD Unavailable [phone] Lien Rodriguez Unavailable [email or web address] Kassandra Gould MD Unavailable [phone] Axel Salcido MD Unavailable [phone] Encounter Details Date Type Department Care Team (Latest Contact Info) Description 09/25/2019 Ancillary Orders [facility]bra [facility] [address] [place] [address] Joel Haddad MD [address] [place] [address] [email or web address] Ischemic cardiomyopathy Social History Tobacco Use Types Packs/Day Years Used Date Smoking Tobacco: Former Cigarettes Q uit: 1987 Smokeless Tobacco: Never Alcohol Use Standard Drinks/Week [...] 12:30 PM EDT Office Visit Debra Crane [facility] [address], [address] [place] [address] Yulisa Meier, DONTAE [address] [facility], [address] [place] [address] [email or web address] documented as of this encounter Results * DEVICE CHECK: ICD IN-PERSON PROGRAMMING?? DUAL LEAD PLUS HFM IMPEDANCE (07/07/2020 2:42 PM EDT) Narrative Theo Xavier MD - 07/13/2020 6:13 PM EDT Reason for appointment: In-office ICD interrogation HPI: Routine in-office ICD interrogation during visit with Yulisa, using iterative adjustment to test the function of the device and select optimal permanent programmed values. No device related complaints. Indication for device: Ischemic cardiomyopthy Examination: Device type: ICD Liaison Inspection Laboratory Assistant: [facility]. Brian Mode: DDD LRL/URL: 60/110 bpm Thresholds, impedances, and sensing stable. Mode switches: 6, < 10 sec r/t known atrial lead noise, no clinical significance at this time High V rates: 0 Alerts: 0 Atrial pacin% Ventricular pacin.1% Battery: 3 years Thoracic impedance: Stable, high at baseline RA RV LV Sensing 4mV 12mV Threshold .75V@.5ms 1V@.5ms Impedance 340 ohms 510 ohms Additional comments or changes: Device functioning appropriately. Cap Confirm turned on in the atrium, Auto Capture in the ventricle not recommended. Normal device function. Patient to follow-up for in-office check in: 3 months Report prepared by Bonnie Chris RN Joel Haddad MD [facility] ORDER AMANDA Final Result documented in this encounter Visit Diagnoses Diagnosis Ischemic cardiomyopathy Other specified forms of chronic ischemic heart disease Ischemic cardiomyopathy Other specified forms of chronic ischemic heart disease documented in this encounter Care Teams Seat Nailer Relationship Specialty Start Date End Date Kassandra Gould MD [address] [address] [email or web address] PCP - General 12/16/16 Joel Haddad MD [address] [address] [email or web address] Historical LMR Provider 12/16/16 Lien Rodriguez PA [email or web address] Historical LMR Provider 12/16/16 03/07/21 Kassandra Gould MD [address] [address] [email or web address] Historical LMR Provider 12/16/16 Axel Salcido MD [address] [place] [address] [email or web address] Historical LMR Provider 12/16/16 03/07/21 documented as of this encounter Additional Source Comments The information contained in this document represents components of the legal health record. It is not the complete legal health record.[facility]
--- OUTSIDE RECORDS SUMMARY | 2025-02-13 19:44 | XMS_ITS | Encounter Summary ---
Author Organization [facility] Address [address] [place] [address] Phone Care Team Providers Care Consumer Insight Analyst Name Role Phone Kassandra Gould MD Primary Care Provider [phone] Joel Haddad MD Unavailable [phone] Lien Rodriguez Unavailable [email or web address] Kassandra Gould MD Unavailable [phone] Axel Salcido MD Unavailable [phone] Encounter Details Date Type Department Care Team (Latest Contact Info) Description 09/25/2019 Ancillary Orders [facility]bra [facility]ane [facility]iology [address] [place] [address] Joel Haddad MD [address] [place] [address] [email or web address] Ischemic cardiomyopathy Social History Tobacco Use Types [...] 12:30 PM EDT Office Visit Debra Crane [facility] [address], [address] [place] [address] Yulisa Meier, DONTEA 22 [facility], [address] [place] [address] [email or web address] documented as of this encounter Results * DEVICE CHECK: ICD IN-HOME INTERROGATION PLUS HFM IMPEDANCE (03/26/2020 10:08 AM EST) Narrative Joel Haddad MD - 03/28/2020 12:59 PM EST Reason for appointment: Remote ICD interrogation HPI: Routine 3 month remote ICD interrogation. No device related complaints. Indication for device: Ischemic cardiomyopathy Examination: Device type: ICD Treasury Representative: St. Brian Mode: DDD LRL/URL: 60/110 bpm Thresholds, impedances, and sensing stable. Mode switches: 31 brief, r/t known atrial lead noise, not clinically significant at this time High V rates: 0 Atrial pacin% Ventricular pacin.9% Battery: 4 yrs Thoracic impedance: Stable at baseline Additional comments: Device functioning appropriately. Normal device function. Patient to follow-up for continued monitoring every 3 months. Report prepared by Bonnie Chris RN Joel Haddad MD [facility] ORDER AMANDA Final Result documented in this encounter Visit Diagnoses Diagnosis Ischemic cardiomyopathy Other specified forms of chronic ischemic heart disease Ischemic cardiomyopathy Other specified forms of chronic ischemic heart disease documented in this encounter Care Teams Consumer Insight Analyst Relationship Specialty Start Date End Date Kassandra Gould MD [address] [address] [email or web address] PCP - General 12/16/16 Joel Haddad MD [address] [address] [email or web address] Historical LMR Provider 12/16/16 Lien Rodriguez PA Historical LMR Provider 12/16/16 03/07/21 Kassandra Gould MD [address] [place] [address] [email or web address] Historical LMR Provider 12/16/16 Axel Salcido MD [address] [place] [address] [email or web address] Historical LMR Provider 12/16/16 03/07/21 documented as of this encounter Additional Source Comments The information contained in this document represents components of the legal health record. It is not the complete legal health record.[facility]
--- OUTSIDE RECORDS SUMMARY | 2025-02-13 19:44 | XMS_ITS | Encounter Summary ---
Author Organization [facility] Address [address] [place] [address] Care Team Providers Care Wind Turbine Design Engineer Name Role Phone Physician, Pcp Unknown Primary Care Provider Venessa vailable Encounter Details Date Type Department Care Team (Late st Contact Info) Description 09/20/[address] [facility] Lab [address] [facility] [place] [address] Jitendra Padron MD [address] [place] [address] Benign essential microscopic hematuria Social History [...] AM EDT) Final Diagnosis A. Urine, Voided, [id number]: Negative for high grade urothelial carcinoma. Results of UroVysion fluorescence in situ hybridization (FISH) testing: Although FISH was performed, insufficient non-obscured hybridization signals are present for evaluation and interpretation. 10/02/2024 10:59 AM EDT [facility] LAB at 1059 EDT Specimen A Adequacy Satisfactory for evaluation 10/02/2024 10:59 AM EDT [facility] Clinical Information Benign essential microscopic hematuria R31.1 Urine Cytology/FISH (now) 10/02/2024 10:59 AM EDT [facility] Gross Description A. Urine, Voided, [id number]: Received one ThinPrep slide for cytology and one ThinPrep slide for UroVysion FISH 10/02/2024 10:59 AM EDT [facility] Disclaimer Unless otherwise specified, all tissue is 10% NB formalin fixed and paraffin embedded. Technical pathology services provided by [facility] at [address] [place] [address] [address], [place] [address] (CLIA #[id number]/Marleny Green MD, Production Generalist) 10/02/2024 10:59 AM EDT [facility] Urine Urine specimen from urethra / Unknown 09/13/2024 09/20/2024 2:13 PM EDT us Jitendra Padron MD LAB CYTOLOGY ORDERABLES Final Result [facility] [address] [place] [address], documented in this encounter Visit Diagnoses Diagnosis Benign essential microscopic hematuria documented in this encounter Care Teams Wind Turbine Design Engineer Relationship Specialty Start Date End Date Physician, Pcp Unknown PCP - General 09/20/24 documented as of this encounter
--- OUTSIDE RECORDS SUMMARY | 2025-02-13 19:44 | XMS_ITS | Encounter Summary ---
Author Organization [facility] Address [address] [place] [address] Phone Care Team Providers Care Employee Development Specialist Name Role Phone Kassandra Gould MD Primary Care Provider [phone] Joel Haddad MD Unavailable [phone] Encounter Details Date Type Department Care Team (Latest Contact Info) Description 10/27/2022 Ancillary Orders Debra Crane Non-Invasive Cardiology [address] [place] [address] Genaro Swenson MD [address] [place], [place] [id number] [email or web address] Ischemic cardiomyopathy Social History Tobacco Use Types [...] Description 06/04/2025 12:30 PM EDT Office Visit [facility] [address] [facility] 3rd Floor, [address] [place] [address] Yulisa Meier, DONTAE [address] [facility], [address] [place] [address] [email or web address] documented as of this encounter Visit Diagnoses Diagnosis Ischemic cardiomyopathy Other specified forms of chronic ischemic heart disease documented in this encounter Care Teams Employee Development Specialist Relationship Specialty Start Date End Date Kassandra Gould MD [address] [address] [email or web address] PCP - General 12/16/16 Joel Haddad MD [address] [address] [email or web address] Historical LMR Provider 12/16/16 documented as of this encounter Additional Source Comments The information contained in this document represents components of the legal health record. It is not the complete legal health record.[facility]
--- OUTSIDE RECORDS SUMMARY | 2025-02-13 19:44 | XMS_ITS | Encounter Summary ---
Author Organization [facility] Address [address] [place] [address] Phone Care Team Providers Care Relay Associate Name Role Phone Kassandra Gould MD Primary Care Provider [phone] Joel Haddad MD Unavailable [phone] Encounter Details Date Type Department Care Team (Late st Contact Info) Description 10/27/2022 Ancillary Orders [facility] [address] [facility] 3rd Floor, [address] [place] [address] Genaro Swenson MD [address] [place] [address] [email or web address] Social History Tobacco Use Types Packs/Day Years [...] Description 06/04/2025 12:30 PM EDT Office Visit [facility] [address] [facility] 3rd Floor, [address] [place] [address] Yulisa Meier, DONTAE [address] [facility], [address] [place] [address] documented as of this encounter Visit Diagnoses Not on filedocumented in this encounter Care Teams Relay Associate Relationship Specialty Start Date End Date Kassandra Gould MD [address] [address] [email or web address] PCP - General 12/16/16 Joel Haddad MD [address] [address] [email or web address] Historical LMR Provider 12/16/16 documented as of this encounter Additional Source Comments The information contained in this document represents components of the legal health record. It is not the complete legal health record.[facility]
--- OUTSIDE RECORDS SUMMARY | 2025-02-13 19:44 | XMS_ITS | Encounter Summary ---
Author Organization [facility] Address [address] [place] [address] Care Team Providers Care Cloth Colorer Name Role Phone Physician, Pcp Unknown Primary Care Provider Venessa vailable Encounter Details Date Type Department Care Team (Late st Contact Info) Description 11/14/2024 Lab Requisition [facility] - Main Lab [address] [facility] [place] [address] Jitendra Padron MD [address] [place] [address] Elevated prostate specific antigen (PSA) Social History Tobacco Use Types Packs/Day Years [...] Procedure Name Priority Date/Time Associated Diagnosis Comments TISSUE EXAM Routine 11/12/2024 Elevated prostate specific antigen (PSA) documented in this encounter Results * Tissue Exam (11/12/2024) Final Diagnosis A. Prostate, Left [place] Biopsy: Benign prostatic tissue B. Prostate, Left Lateral [place] Biopsy: Benign prostatic tissue with acute and chronic inflammation C. Prostate, Left Middle Middle Biopsy: Benign prostatic tissue D. Prostate, Left Lateral Middle Biopsy: Benign prostatic tissue E. Prostate, Left Middle Base Biopsy: Benign prostatic tissue with acute and chronic inflammation F. Prostate, Left Lateral Base Biopsy: Benign prostatic tissue G. Prostate, Right [place] Biopsy: Benign prostatic tissue H. Prostate, Right Lateral [place] Biopsy: Benign prostatic tissue I. Prostate, Right Middle Middle Biopsy: Benign prostatic tissue J. Prostate, Right Lateral Middle Biopsy: Benign prostatic tissue K. Prostate, Right Middle Base Biopsy: Benign prostatic tissue L. Prostate, Right Lateral Base Biopsy: Benign prostatic tissue 11/22/2024 1:21 PM EDT [facility] at 1321 EDT Clinical Information Elevated PSA PSA: 6.1 (10/04/24) PSA-Free: 0.78 (10/04/24) [id number] 11/22/2024 1:21 PM EDT [facility] Gross Description A. Prostate, Left [place] Biopsy: Received, properly labeled, are two H and E stained slides and two unstained slides. B. Prostate, Left Lat [place] Biopsy: Received, properly labeled, are two H [...] two unstained slides. G. Prostate, Right [place] Biopsy: Received, properly labeled, are two H and E stained slides and two unstained slides. H. Prostate, Right Lat [place] Biopsy: Received, properly labeled, are two H [...] stained slides and two unstained slides. /al 11/22/2024 1:21 PM EDT [facility] Special Stains E. Focally, the glands appear to have a haphazard appearance raising the possibility of invasive neoplasm. Therefore PIN4 stain was performed with appropriate controls. P63 and cytokeratin 5: Expressed in basal cells AMACR: No expression This supports excludes malignancy. 11/22/2024 1:21 PM EDT [facility] Disclaimer Unless otherwise specified, all tissue is 10% NB formalin fixed and paraffin embedded. Technical pathology services provided by [facility] [address] [place] [address] (CLIA #[id number]/Austin Green MD, Home Coordinator) 11/22/2024 1:21 PM EDT [facility] Tissue Prostate / Unknown 11/12/20242024 10:45 AM EDT Tissue specimen (specimen) Prostate / Unknown 11/12/2024 11/14/2024 10 :47 AM EDT Tissue specimen (specimen) Prostate / Unknown 11/12/2024 11/14/2024 10 :47 AM EDT Tissue specimen (specimen) Prostate / Unknown 11/12/2024 11/14/2024 10 :47 AM EDT Tissue specimen (specimen) Prostate / Unknown 11/12/2024 11/14/2024 10 :47 AM EDT Tissue specimen (specimen) Prostate / Unknown 11/12/2024 11/14/2024 10 :47 AM EDT Tissue specimen (specimen) Prostate / Unknown 11/12/2024 11/14/2024 10 :47 AM EDT Tissue specimen (specimen) Prostate / Unknown 11/12/2024 11/14/2024 10 :47 AM EDT Tissue specimen (specimen) Prostate / Unknown 11/12/2024 11/14/2024 10 :47 AM EDT Tissue specimen (specimen) Prostate / Unknown 11/12/2024 11/14/2024 10 :47 AM EDT Tissue specimen (specimen) Prostate / Unknown 11/12/2024 11/14/2024 10 :47 AM EDT Tissue specimen (specimen) Prostate / Unknown 11/12/2024 11/14/2024 10 :47 AM EDT us Jitendra Padron MD LAB PATHOLOGY ORDERABLES Final Result [facility] [address] [place] [address], documented in this encounter Visit Diagnoses Diagnosis Elevated prostate specific antigen (PSA) documented in this encounter Care Teams Cloth Colorer Relationship Specialty Start Date End Date Physician, Pcp Unknown PCP - General 09/20/24 documented as of this encounter
--- OUTSIDE RECORDS SUMMARY | 2025-02-13 19:44 | XMS_ITS | Clinical Summary ---
Author Organization [facility] Address [address] [facility] [address] [place] [address] Phone Care Team Providers Care Control Technician Name Role Phone Kassandra Gould MD Primary Care Provider [phone] Joel Haddad MD Unavailable [phone] Allergies No known active allergies Medications loperamide [...] tablet Active tamsulosin (FLOMAX) 0.4 mg Cap Take 0.8 mg by mouth daily. Orally Active apixaban (ELIQUIS) 5 mg tablet [...] IN THE MORNING ONCE A DAY Active semaglutide (OZEMPIC) 2 mg/dose (8 mg/3 mL) subcutaneous injection pen Inject 2 mg under the skin once a week. 5 Active ketoconazole 2 % cream APPLY EXTERNALLY TWICE A DAY FOR 28 DAYS 5 Active finasteride (PROSCAR) 5 mg tablet Take 5 mg by mouth daily. 5 Active Active Problems Problem Noted Date Diagnosed Date Paroxysmal atrial fibrillation 01/12/2021 Assessment & Plan (12/04/2024 1:05 PM EDT): He has a history for paroxysmal atrial fibrillation and is rate controlled on carvedilol 12.5 mg twice daily and anticoagulated on apixaban 5 mg twice daily he will continue his medication without change. Assessment & Plan (06/01/2024 3:17 PM EDT): He has a history for paroxysmal atrial fibrillation. He is rate controlled here in office today 84 bpm. He is on Eliquis 5 mg twice daily for anticoagulation Ischemic cardiomyopathy 08/02/2017 Overview (08/02/2017): Anterior infarct 2017 Assessment & Plan (12/04/2024 1:04 PM EDT): He has a known ischemic cardiomyopathy. It appears his ejection fraction has improved to 40%. His last echocardiogram was done at [facility] we are requesting those records for review. He is on Entresto 97-103 mg twice daily, Farxiga 10 mg daily, carvedilol 12.5 mg twice daily which she will continue without change. He is euvolemic on exam today and this shows no signs or symptoms of heart failure at this time. Assessment & Plan (06/01/2024 3:17 PM EDT): [...] Overview (08/02/2017): LAD 2006 Assessment & Plan (12/04/2024 1:05 PM EDT): Continues to be asymptomatic. Will continue to optimize cardiac risk factors. He is on apixaban 5 mg twice daily, carvedilol 12.5 mg twice daily, Farxiga 10 mg daily, rosuvastatin 40 mg daily, Entresto 97-103 mg twice daily, Ozempic 2 mg weekly which he will continue without change. He is encouraged follow heart healthy diet: Low-sodium and exercise. SBP goal less than 130/80. LDL goal less than 55 mg/dL. Assessment & Plan (06/01/2024 3:17 PM EDT): [...] daily Mixed hyperlipidemia 08/02/2017 Assessment & Plan (12/04/2024 1:05 PM EDT): Continue rosuvastatin 40 mg daily PCP monitors lipid panel. Assessment & Plan (06/01/2024 3:17 PM EDT): Continue rosuvastatin 40 mg daily Assessment & Plan (07/07/2020 2:11 PM EDT): PCP follows lipid profile. He will continue atorvastatin 80 mg daily. Orthostatic hypotension 08/02/2017 ICD (implantable cardioverter-defibrillator) in place 08/02/2017 Overview (08/02/2017): [facility] Assessment & Plan (12/04/2024 1:05 PM EDT): We will continue to monitor on an annual basis in person in 3 months remotely. Encounters Date Type Department Care Team Description 12/26/2024 Orders Only [facility] [address], [address] [place] [address] Provider, MD Manuela 12/04/2024 1:00 PM EDT Office Visit De[facility] [address], [address] [place] [address] Yulisa Meier DNP Ischemic cardiomyopathy (Primary Dx); Stented coronary artery; ICD (implantable cardioverter-defibril lator) in place; Paroxysmal atrial fibrillation; Mixed hyperlipidemia 12/04/2024 12:44 PM EDT - 12/04/2024 11:59 PM EDT Hospital Encounter [facility] [address] [place] [address] Genaro Swenson MD Discharge Disposition: Home or Self Care 01/14/2023 Procedure Pass [facility] [address] [place] [address] from Last 3 Months Immunizations Immunization Administration [...] Sign Reading Time Taken Comments Blood Pressure 124/90 12/04/2024 12:48 PM EDT Pulse 76 12/04/2024 12:48 PM EDT Temperature - - Respiratory Rate - - Oxygen Saturation 96% 12/04/2024 12:48 PM EDT Inhaled Oxygen Concentration - - Weight 84.8 kg (187 lb) 12/04/2024 12:48 PM EDT Height 175.3 cm (5' 9.02 ) 12/04/2024 12:48 PM E DT Body Mass Index 27.6 12/04/2024 12:48 PM EDT Plan of Treatment Upcoming Encounters Date Type Department Care Team (Late st Contact Info) Description 06/04/2025 12:30 PM EDT Office Visit [facility] [address] [place] [address] [address]rd Floor, [address] [place] [address] Yulisa Meier, DONTAE [address] [facility], [address] [place] [address] [email or web address] Health Maintenance Due Date Last Done Comments Adult Td,Tdap Booster 1955 CREATININE LEVEL 1955 DEPRESSION SCREENING 1967 HEPATITIS C SCREENING 06/05/1973 COLOGUARD 06/05/2000 COLONOSCOPY 06/05/2000 COLORECTAL CANCER SCREENING 06/05/2000 FIT TEST 06/05/2000 FOBT 06/05/2000 SIGMOIDOSCOPY 06/05/2000 VIRTUAL COLONOSCOPY 06/05/2000 PNEUMOCOCCAL VACCINES (50+ years) (1 of 1 - PCV) 06/05/2005 RSV VACCINE (1 - Risk 50-74 years 1-dose series) 06/05/2005 ZOSTER VACCINES (1 of 2) 06/05/2005 ABDOMINAL AORTIC ANEURYSM (AAA) SCREENING 06/05/2020 LIPID PANEL 04/11/2024 04/11/2019, 02/16/2016 INFLUENZA VACCINE (#1) 2024 , 12/03/2020, 12/03/2020, Additional history exists COVID-19 VACCINE (2 - season) 2024 05/26/2020 SCREENING FOR DIABETES 01/11/2025 01/11/2022 SMOKING Hx and SMOKELESS TOBACCO SCREENING 12/04/2025 12/04/2024 HEPATITIS A VACCINES Aged Out No long [...] Procedure Name Priority Date/Time Associated Diagnosis Comments DEVICE CHECK: ICD IN-PERSON PROGRAMMING DUAL LEAD PLUS HFM IMPEDANCE Routine 12/04/2024 5:59 PM EDT ICD (implantable cardioverter-defibr illator) in place from Last 3 Months Results * DEVICE CHECK: ICD IN-PERSON PROGRAMMING?? DUAL LEAD PLUS HFM IMPEDANCE (12/04/2024 5:59 PM EDT) Narrative Joel Bashir, - 12/14/2024 12:37 PM EDT Table formatting from the original result was not included. Reason for appointment: In-office ICD interrogation HPI: Routine in-office ICD interrogation during appt w/Yulisa, using iterative adjustment to test the function of the device and select optimal permanent programmed values. No device related complaints. Indication for device: Ischemic cardiomyopathy Examination: Device type: ICD Supervisor Agency Appointments: [facility] Mode: DDD LRL/URL: 60/110 bpm Thresholds, impedances, and sensing stable. Mode switches: 0 High V rates: 0 Alerts: 0 Atrial pacin.9% Ventricular pacin.1% Battery: 10.9 months RA RV LV Sensing 4.3mV 12mV Threshold .75V@.5ms 1.25V@.5ms Impedance 310 ohms 450 ohms Additional comments or changes: Device functioning appropriately. Auto Capture turned on in the RV for safety and battery preservationl. Normal device function. Patient to follow-up for in-office check in: 6 months Report prepared by Bonnie Bowden RN Procedure Note Joel Bashir, - 12/14/2024 Reason for appointment: In-office ICD interrogation HPI: Routine in-office ICD interrogation during appt w/Yulisa, usingiterative adjustment to test the function of the device and select optimalpermanent programmed values. No device related complaints. Indication for device: Ischemiccardiomyopathy Examination: Device type: ICD Supervisor Agency Appointments: [facility] Mode: DDD LRL/URL: 60/110 bpm Thresholds, impedances, and sensing stable. Mode switches: 0 High V rates: 0 Alerts: 0 Atrial pacin.9% Ventricular pacin.1% Battery: 10.9 months RA RV LV Sensing 4.3mV 12mV Threshold .75V@.5ms 1.25V@.5ms Impedance 310 ohms 450 ohms Additional comments or changes: Device functioning appropriately. AutoCapture turned on in the RV for safety and battery preservationl. Normal device function. Patient to follow-up for in-office check in: 6months Report prepared by Bonnie Bowden RN us Genaro Swenson MD CV CARDIAC SERVICES ORDERABL ES Final Result from Last 3 Months Insurance MEDICARE PART A & B [facility] MEDICARE PART A & B O MEDICARE PART A & B O MEDICARE PART A & [place] [address] [place] [id number] MEDICARE PART A & [facility]IC[facility] PART A & B HMO MEDICARE PART A & B O MEDICARE PART A & B [facility] Care Teams Control Technician Relationship Specialty Start Date End Date Kassandra Gould MD [address] [address] [email or web address] PCP - General 12/16/16 Joel Haddad MD [address] [address] [email or web address] Historical LMR Provider 12/16/16 Additional Source Comments The information contained in this document represents components of the legal health record. It is not the complete legal health record.[facility]
--- OUTSIDE RECORDS SUMMARY | 2025-02-13 19:44 | XMS_ITS | Clinical Summary ---
Author Organization [facility] Prior to 07/28/[address] [place] [address] Care Team Providers Care Window Shade Ring Coverer Name Role Phone Shana Gould MD Primary Care Provider [phone] Allergies No known active allergies Medications Medication [...] on patient's age to complete this topic Care Teams Window Shade Ring Coverer Relationship Specialty Start Date End Date Shana Gould MD [address] [address] PCP - General Internal Medicine 09/24/16
--- OUTSIDE RECORDS SUMMARY | 2025-02-13 19:44 | XMS_ITS | Encounter Summary ---
Author Organization [facility] Address [address] [facility] [address] [place] [address] Phone Care Team Providers Care Mechanical Tech Name Role Phone Kassandra Gould MD Primary Care Provider [phone] Joel Haddad MD Unavailable [phone] Encounter Details Date Type Department Care Team (Late Contact Info) Description 11/11/2021 Procedure Pass [facility] [address] [place] [address] Social History Tobacco Use Types Packs/Day Years [...] 12:30 PM EDT Office Visit [facility] [address] [facility] 3rd Floor, [address] [place], [place] [phone] Yulisa Meier DNP 22 [facility], [address] [address] [email or web address] documented as of this encounter Visit Diagnoses Not on filedocumented in this encounter Care Teams Mechanical Tech Relationship Specialty Start Date End Date Kassandra Gould MD [address] [address] [email or web address] PCP - General 12/16/16 Joel Haddad MD [address] [address] [email or web address] Historical LMR Provider 12/16/16 documented as of this encounter Additional Source Comments The information contained in this document represents components of the legal health record. It is not the complete legal health record.[facility]
--- OUTSIDE RECORDS SUMMARY | 2025-02-13 19:45 | XMS_ITS | Encounter Summary ---
Author Organization [facility] Address [address] [facility] [address] [place] [address] Phone Care Team Providers Care Lug Loader Name Role Phone Kassandra Gould MD Primary Care Provider [phone] Joel Haddad MD Unavailable [phone] Lien Rodriguez Unavailable [email or web address] Kassandra Gould MD Unavailable [phone] Axel Salcido MD Unavailable [phone] Encounter Details Date Type Department Care Team (Late st Contact Info) Description 10/13/2020 Procedure Pass [facility] [address] [place], [place] [phone] Social History Tobacco Use Types Packs/Day Years [...] 12:30 PM EDT Office Visit [facility] [address] Floor, [address] [place], [place] [phone] Yulisa Meier, DONTAE 22 [facility], [address] [place], [place] [phone] documented as of this encounter Visit Diagnoses Not on filedocumented in this encounter Care Teams Lug Loader Relationship Specialty Start Date End Date Kassandra Gould MD [address] [address] [email or web address] PCP - General 12/16/16 Joel Haddad MD [address] [address] [email or web address] Historical LMR Provider 12/16/16 Lien Rodriguez PA Historical LMR Provider 12/16/16 03/07/21 Kassandra Gould MD [address] [address] [email or web address] Historical LMR Provider 12/16/16 Axel Salcido MD [address] [place] [address], [address] [address] [email or web address] Historical LMR Provider 12/16/16 03/07/21 documented as of this encounter Additional Source Comments The information contained in this document represents components of the legal health record. It is not the complete legal health record.[facility]
--- OUTSIDE RECORDS SUMMARY | 2025-02-13 19:45 | XMS_ITS | Encounter Summary ---
Author Organization [facility] Address [address] [facility] [address] [place] [address] Phone Care Team Providers Care Patient Financial Services Coordinator Name Role Phone Kassandra Gould MD Primary Care Provider [phone] Joel Haddad MD Unavailable [phone] Encounter Details Date Type Department Care Team (Late Contact Info) Description 08/04/2021 Procedure Pass [facility] [address] [place] [address] Social History Tobacco Use Types Packs/Day Years [...] Description 06/04/2025 12:30 PM EDT Office Visit [facility] [address] [facility] 3rd Floor, [address] [place], [place] [phone] Yulisa Meier DNP 22 [facility], [address] [address] [email or web address] documented as of this encounter Visit Diagnoses Not on filedocumented in this encounter Care Teams Patient Financial Services Coordinator Relationship Specialty Start Date End Date Kassandra Gould MD [address] [address] [email or web address] PCP - General 12/16/16 Joel Haddad MD [address] [address] [email or web address] Historical LMR Provider 12/16/16 documented as of this encounter Additional Source Comments The information contained in this document represents components of the legal health record. It is not the complete legal health record.[facility]
--- OUTSIDE RECORDS SUMMARY | 2025-02-13 19:45 | XMS_ITS | Encounter Summary ---
Author Organization [facility] Address [address] [place] [address] Phone Care Team Providers Care Cinder Pit Crane Operator Name Role Phone Kassandra Gould MD Primary Care Provider [phone] Joel Haddad MD Unavailable [phone] Lien Rodriguez Unavailable [email or web address] Kassandra Gould MD Unavailable [phone] Axel Salcido MD Unavailable [phone] Encounter Details Date Type Department Care Team (Latest Contact Info) Description 08/08/2017 Ancillary Orders [facility] [address] [place] [address] Joel Haddad MD [address] [place] [address] [email or web address] Ischemic cardiomyopathy Social History Tobacco [...] 12:30 PM EDT Office Visit [facility] [address], [address] [place] [address] Yulisa Meier, DONTAE 22 [facility], [address] [place] [address] [email or web address] documented as of this encounter Results * DEVICE CHECK: ICD REMOTE INTERROGATION WITH JOSS HOUSE KEEPER REVIEW (11/16/2017 10:05 AM EDT) Narrative Joel Haddad MD - 11/17/2017 9:42 AM EDT Reason for appointment: Remote ICD interrogation HPI: Routine 3 month remote ICD interrogation. No device related complaints. Indication for device: Ischemic cardiomyopathy Examination: Device type: ICD Payroll Machine Operator: [facility] Mode: DDD LRL/URL: 60/110 bpm Thresholds, impedances, and sensing stable. Mode switches: 6 inapp reported episodes, all related to known atrial lead noise. No pauses occur, pt VS thru episodes High V rates: 0 Atrial pacin% Ventricular pacin.6% Battery: 6 yrs Additional comments: Will monitor for any increased episodes of noise resulting in clinical issues, per Dr. Haddad 08/04/17 Patient to follow-up for continued monitoring every 3 months. Report prepared by Bonnie Chris RN Joel Haddad MD CV CARDIAC SERVICES ORDER AMANDA Final Result documented in this encounter Visit Diagnoses Diagnosis Ischemic cardiomyopathy Other specified forms of chronic ischemic heart disease Ischemic cardiomyopathy Other specified forms of chronic ischemic heart disease documented in this encounter Care Teams Cinder Pit Crane Operator Relationship Specialty Start Date End Date Kassandra Gould MD [address] [address] [place] [address] [email or web address] PCP - General 12/16/16 Joel Haddad MD [address] [place] [address] [email or web address] Historical LMR Provider 12/16/16 Lien Rodriguez PA Historical LMR Provider 12/16/16 03/07/21 Kassandra Gould MD [address] [place] [address] [email or web address] Historical LMR Provider 12/16/16 Axel Salcido MD [address] [place] [address], [facility] [address] [place] [address] [email or web address] Historical LMR Provider 12/16/16 03/07/21 documented as of this encounter Additional Source Comments The information contained in this document represents components of the legal health record. It is not the complete legal health record.[facility]
--- OUTSIDE RECORDS SUMMARY | 2025-02-13 19:45 | XMS_ITS | Encounter Summary ---
Author Organization [facility] Address [address] [place] [address] Phone Care Team Providers Care Real Estate Listing Consultant Name Role Phone Kassandra Gould MD Primary Care Provider [phone] Joel Haddad MD Unavailable [phone] Encounter Details Date Type Department Care Team (Latest Contact Info) Description 08/04/2021 Ancillary Orders Debra Crane Non-Invasive Cardiology [address] [place] [address] Theo Xavier MD [address] [place] [address] [email or web address] Ischemic cardiomyopathy Social History Tobacco Use Types [...] 12:30 PM EDT Office Visit Debra Crane [facility] [address], [address] [place] [address] Yulisa Meier DNP [address], [address] [place] [address] [email or web address] documented as of this encounter Results * DEVICE CHECK: ICD IN-HOME INTERROGATION PLUS HFM IMPEDANCE (08/04/2021 8:47 AM EDT) Narrative KrystenJoel DO - 08/04/2021 10:54 AM EDT Reason for appointment: Remote ICD interrogation HPI: Routine 3 month remote ICD interrogation. No device related complaints. Indication for device: Ischemic cardiomyopathy Examination: Device type: ICD [employer] Consultant: [facility] Mode: DDD LRL/URL: 60/110 bpm Thresholds, impedances, and sensing stable. Mode switches: Numerous for AF burden of <1%, on Eliquis High V rates: 32, EGMs available show AF w/RVR Atrial pacin% Ventricular pacing: <1% Battery: 3 yrs Thoracic impedance: Stable at baseline Additional comments: Device functioning appropriately. Carvedilol increased by Dr. Xavier Normal device function. Patient to follow-up for continued monitoring every 3 months. Report prepared by Hilary Espana NP Theo Xavier MD [facility] ORDER AMANDA Final Result documented in this encounter Visit Diagnoses Diagnosis Ischemic cardiomyopathy Other specified forms of chronic ischemic heart disease Ischemic cardiomyopathy Other specified forms of chronic ischemic heart disease documented in this encounter Care Teams Real Estate Listing Consultant Relationship Specialty Start Date End Date Kassandra Gould MD [address] [address] [email or web address] PCP - General 12/16/16 Joel Haddad MD [address] [place] [address] [place] [email or web address] Historical LMR Provider 12/16/16 documented as of this encounter Additional Source Comments The information contained in this document represents components of the legal health record. It is not the complete legal health record.[facility]
--- OUTSIDE RECORDS SUMMARY | 2025-02-13 19:45 | XMS_ITS | Patient Health Record ---
Author Organization Shana Gould MD Address [address] [place] [id number] Care Team Providers Care Pattern Setter Name Role Phone Shana Gould Primary Care Provider ChilelEdwige Unavailable [phone] Allergies No Known Allergies Results Component Value Reference Range Notes Hemoglobin [id number] (Not y et reviewed by provider) Interpretation: Performing Lab:[facility] [address], Phone - [phone], Director - MDJodry Notes/Report: Test(s) 643815-Goagcnwgxvmb, Total, LC/MS; 842712-y-uec966 was developed and its performance characteristics determined by [facility]. It has not been cleared or approved by the Food and Drug Administration. Hemoglobin A1c 6.5 4.8-5.6 % . Prediabetes: 5.7 - 6.4 Diabetes: >6.4 Glycemic control for adults with diabetes: <7.0 Vitamin K28-142245 (Not yet reviewed by provider) Interpretation: Performing Lab:[facility] [address], Phone - [phone], Director - MDJodry Notes/Report: Test(s) 830404-Vcqnofgsdhqm, Total, LC/MS; 664282-p-huo546 was developed and its performance characteristics determined by [facility]. It has not been cleared or approved by the Food and Drug Administration. Vitamin B12 526 651-8315 pg/mL Immunofixation, Serum-569193 (Not yet reviewed by provider) Interpretation: Performing Lab:[facility] [address], Phone - [phone], [facility] Notes/Report: Test(s) 885704-Ekkknusdszfj, Total, LC/MS; 743712-r-xft752 was developed and its performance characteristics determined by [facility]. It has not been cleared or approved by the Food and Drug Administration. Immunofixation Result, Serum The immunofixation pattern appears unremarkable. Evidence of monoclonal protein is not apparent. Immunoglobulin G, Qn, Serum 0745 433-5122 mg/d L Immunoglobulin A, Qn, Serum 223 61-437 mg/dL Immunoglobulin M, Qn, Serum 166 20-172 mg/dL Folate (Folic Acid), Serum-0 31897 (Not yet reviewed by provider) Interpretation: Performing Lab:[facility], [address] [place] [address], [place], Phone - [phone], [facility] Notes/Report: Test(s) 458062-Uxvxvkksrzkr, Total, LC/MS; 325694-y-kml763 was developed and its performance characteristics determined by [facility]. It has not been cleared or approved by the Food and Drug Administration. Folate (Folic Acid), Serum 5.3 >3.0 ng/mL A serum folate concentration of less than 3.1 ng/mL is considered to represent clinical deficiency. TSH-675409 (Not yet reviewed by provider) Interpretation: Performing [facility], [address] [place] [address], [place], Phone - [phone], [facility] Notes/Report: Test(s) 075428-Tgtlusdgfxce, Total, LC/MS; 559731-e-ewc753 was developed and its performance characteristics determined by [facility]. It has not been cleared or approved by the Food and Drug Administration. TSH 3.630 0.450-4.500 uIU/mL Testosterone, F Eqlib+T LC/M S-030596 (Not yet reviewed by provider) Interpretation: Performing Lab:[facility], [address] [place] [address], [place], Phone - [phone], [facility] Notes/Report: Test(s) 961958-Occzbllbqfud, Total, LC/MS; 322587-h-xek194 was developed and its performance characteristics determined [...] <30) between 19 and 39 years old. evelin Catalan.al. JCEM 2017,102;4214-8481. PMID: 69395323. Testosterone, Free 14.94 5.00-21.00 ng/dL % Free Testosterone 4.01 1.50-4.20 % B-Type Natriuretic Peptide-1 71804 (Not yet reviewed by provider) Interpretation: Performing [facility], [address] [facility], [place], Phone - [phone], Director - MDBenjamin [facility] Notes/Report: Test(s) 593518-Ppjfsrnhbrhb, Total, LC/MS; 564865-w-ugs471 was developed and its performance characteristics determined by [facility]. It has not been cleared or approved by the Food and Drug Administration. B-Type Natriuretic Peptide 19.0 0.0-100.0 pg/m L Siemens ADVIA Centaur XP methodology APOE Alzheimer's Risk-490505 (Not yet reviewed by provider) Interpretation: Performing Lab:[facility], [address], [place], Phone - [phone], Director - MDBayleey Notes/Report: Test(s) 310421-Tzbijbsfyils, Total, LC/MS; 939843-e-umg121 was developed and its performance characteristics determined by [facility]. It has not been cleared or approved by the Food and Drug Administration. Methodology: Patient DNA is assayed for the APOE genotype by PCR amplification of a specific region in exon 4 of the APOE gene followed by digestion with restriction enzyme Practice Billing Associate I and separation of fragments by polyacrylamide [...] For inquiries or genetic consultation, please call [facility] at . Comment: INFORMATION ABOUT THE APOE [...] the APOE4 variant and by approximately 10 wo36-nppi for individuals with two copies of this [...] developed and its performance characteristics determined by [facility]. It has not been cleared or approved by the Food and Drug Administration. The FDA has determined that such clearance or approval is not necessary. REFERENCES Brittany Collins et al. Sex modifies the APOE-related risk of developing Alzheimer disease. Annal Neurol 2014;75(4):563-573 Isma MEZA. Alzheimer Disease Overview. [employer] (internet). Gloria YANG et al., editors. [facility]: [facility], [place], [place]. Last revised 2014. Arianne ESTRADA et al. Genetic counseling and testing for Alzheimer disease: Joint practice guidelines of the [place] [employer] Genetics and the National Society of Genetic Counselors. Elva in Med 2011;13(6597-605. Nirav WEISS. Apolipoprotein E: Implications for AD neurobiology, epidemiology and risk assessment. Neurobiology of Aging 2011;32:778-790 Phosphatidylethanol (PEth)-7 88782 (Not yet reviewed by provider) Interpretation: Performing Lab:[facility] [place], [address] [place] [address], [place], Phone - [phone], Director - Jesus Notes/Report: Test(s) 281007-Oncvsietpajq, Total, LC/MS; 386318-q-smk823 was developed and its performance characteristics determined by [facility]. It has not been cleared or approved by the Food and Drug Administration. PHOSPHATIDYLETHANOL Negative Phosphatidylethanol (PEth) Negative Analyzed compound: PEth 16:0/18:1. 6-otwlfespm-4-oleoyl-sn -rsnwgww-8-liiylfqyfrmc ol. Analysis performed by Liquid Chromatography with [...] developed and its performance characteristics determined by [facility]. It has not been cleared or approved by the Food and Drug Administration. Phosphorylated Tau 217 (pTau -217) (Not yet reviewed by provider) Interpretation: Performing Lab:[facility], [address], [place], Phone - [phone], Director - Jesus Notes/Report: Test(s) 577232-Azgrsmpznixc, Total, LC/MS; 620827-f-klt633 was developed and its performance characteristics determined by [facility]. It has not been cleared or approved by the Food and Drug Administration. p-kqw507 0.11 0.00-0.18 pg/mL Clinical cutoff value was established using samples from a patient cohort characterized with amyloid PET data. A p-tov415 value of >0.18 is a reported surrogate marker for beta amyloid pathology, and can be used to facilitate biological identification of Alzheimer's disease (1). p-egg478 has also been used in clinical trials to monitor patients on anti-amyloid therapy (2,3). Test performed by [employer] chemiluminescent enzyme immunoassay (CLEIA). Values obtained with different methods cannot be used interchangeably. The validated limit of quantification is 0.06 pg/mL. Assay detection limit is 0.03 pg/mL. Footnotes 1. Migel Sifuentes, et al. Diagnostic Accuracy of a Plasma Phosphorylated Tau 217 Immunoassay for Alzheimer Disease Pathology. JAVED neurology (2023). 2. Migel Sifuentes, et al. Differential roles of A42/40, p-wcc942 and p-pqk730 for Alzheimer's trial selection and disease monitoring. Nature medicine 28.12 (2021): 8655-4787. 3. Cesar STEPHENSON, Luz M, Alonzo SC, et al. Association of Donanemab Treatment With Exploratory Plasma Biomarkers in Early Symptomatic Alzheimer Disease: A Secondary Analysis of the TRAILBLAZER-ALZ Randomized Clinical Trial . JAVED Neurol. 2021;79(12):2518-0138. Hemoglobin A1C Reviewed date:04/12/2024 10:13:40 AM Interpretation: Performing Lab: Notes/Report: [facility] ([facility]), Shana Gould MD Lot: [id number] Urinalysis, Complete-726399 Reviewed date:04/30/2024 03:52:18 PM Interpretation: Performing Lab:[facility] [place], [address] [facility], Phone - [phone], Director - [facility] Notes/Report: Test(s) 450796-Smqaowncsvrf, Total, LC/MS was developed and its performance characteristics determined by [facility]. It has not been cleared or approved by the Food and Drug Administration. Test(s) 282342-Phijpwrhxmba, Total, LC/MS was developed and its performance characteristics determined by [facility]. It has not been cleared or approved by the Food and Drug Administration. Specific [place] >=1.030 1.005-1.030 pH 5.0 5.0-7.5 Urine-Color Yellow [...] None seen /lpf Bacteria Many None seen/Few Testosterone, F Eqlib+T LC/M S-416803 Reviewed date:04/30/2024 03:52:18 PM Interpretation: Performing Lab:[facility] [place], [address] [facility], Phone - [phone], Director - [facility] Notes/Report: Test(s) 799578-Niolzgobrsyc, Total, LC/MS was developed and its performance characteristics determined by [employer]. It has not been cleared or approved by the Food and Drug Administration. Testosterone, Total, LC/MS 221.8 264.0 -916.0 ng/dL This [facility] LC/MS-MS method is currently certified by the CDC Hormone Standardization Program (HoSt). Adult male reference interval is based on a population of healthy nonobese males (BMI <30) between 19 and 39 years old. Hossein et.al. JCEM 2017,102;6536-9030. PMID: 47056702. Testosterone, Free TNP Unable to calculate result since non-numeric result obtained for component test. % Free Testosterone TNP Test not performed. Unable to obtain result due to presence of unknown interfering substance(s). Vitamin D, 25-Rmmdybh-896854 Reviewed date:04/30/2024 03:52:19 PM Interpretation: Performing [facility], [address] [place] [address], Phone - [phone], Director - [facility] Notes/Report: Test(s) 081006-Yrsgpsaakxhb, Total, LC/MS was developed and its performance characteristics determined by [facility]. It has not been cleared or approved by the Food and Drug Administration. Vitamin D, 25-Hydroxy 49.8 30.0-100.0 ng/mL Vitamin D deficiency has been defined by the [place] of Medicine and an Endocrine Society practice guideline as a level of serum 25-OH vitamin D less than 20 ng/mL (1,2). The Endocrine Society went on to further define vitamin D insufficiency as a level between 21 and 29 ng/mL (2). 1. IOM ([place] of Medicine). 2010. Dietary reference intakes for calcium and D. [place]: The National Academies Press. 2. Darryl MF, Geo NC, Rebel TAMAYO, et al. Evaluation, treatment, and prevention of vitamin D deficiency: an Endocrine Society clinical practice guideline. JCEM. 2010; 96(7):1911-30. Albumin/Creatinine Ratio,Uri ne-112705 Reviewed date:04/30/2024 03:52:19 PM Interpretation: Performing Lab:[facility] [place], [address] [place] [address], [place], Phone - [phone], Director - [facility] Notes/Report: Test(s) 760954-Ihhtxpciynae, Total, LC/MS was developed and its performance characteristics determined by [facility]. It has not been cleared or approved by the Food and Drug Administration. Creatinine, Urine 77.4 Not Estab. mg/dL Albumin, Urine 49.3 Not Estab. ug/mL Alb/Creat Ratio 64 0-29 mg/g creat Normal: 0 - 29 Moderately increased: 30 - 300 Severely increased: >300 B-Type Natriuretic Peptide-1 73262 Reviewed date:04/30/2024 03:52:19 PM Interpretation: Performing Lab:[facility] [place], [address] [place] [address], Phone - [phone], Director - Jesus Notes/Report: Test(s) 926397-Kpctdqfshqst, Total, LC/MS was developed and its performance characteristics determined by [facility]. It has not been cleared or approved by the Food and Drug Administration. B-Type Natriuretic Peptide 14.6 0.0-100.0 pg/m L Siemens ADVIA Centaur XP methodology Request Problem TNP Test not performed. Unable to obtain result due to presence of unknown interfering substance(s). TEST: 309747 % Free Testosterone Panel: 924442 Comp. Metabolic Panel (14)-3 54645 Reviewed date:04/30/2024 03:52:19 PM Interpretation: Performing Lab:[facility] [place], [address] [place] [address], Phone - [phone], Director - Jesus Notes/Report: Test(s) 270430-Pgoyhxgheimm, Total, LC/MS was developed and its performance [...] 0-40 IU/L ALT (SGPT) 21 0-44 IU/L LP+Non-HDL Cholesterol-09544 5 Reviewed date:04/30/2024 03:52:19 PM Interpretation: Performing Lab:[facility] [address], Phone - [phone], Director - Cherylregla Notes/Report: Test(s) 206770-Oehbksqhqaib, Total, LC/MS was developed and its performance characteristics determined by [facility]. It has not been cleared or approved by the Food and Drug Administration. Cholesterol, Total 98 100-199 mg/dL Triglycerides 230 0-149 mg/dL HDL Cholesterol 28 >39 mg/dL VLDL Cholesterol Kalyan 36 5-40 mg/dL LDL Chol Calc (NIH) 34 0-99 mg/dL Non-HDL Cholesterol 70 0-129 mg/dL Hemoglobin A1C Reviewed date:08/08/2024 01:36:33 PM Interpretation: Performing Lab: Notes/Report: [facility] ([facility]), Shana Gould MD Lot: [id number] Urinalysis, Complete-361421 Reviewed date:09/12/2024 05:59:00 PM Interpretation: Performing Lab:[facility] [place], [address] [place] [address], Phone - [phone], Director - Jesus Notes/Report: Test(s) 854436-Rslunkisyhyf, Total, LC/MS was developed and its performance characteristics determined by [facility]. It has not been cleared or approved by the Food and Drug Administration. Test(s) 494219-Ecmywvnizyxy, Total, LC/MS was developed and its performance characteristics determined by [employer]. It has not been cleared or approved by the Food and Drug Administration. Specific [place] 1.029 1.005-1.030 pH 6.0 5.0-7.5 Urine-Color Yellow [...] Present None seen Testosterone, F Eqlib+T LC/M S-727669 Reviewed date:09/12/2024 05:59:01 PM Interpretation: Performing Lab:[facility] [place], [address] [facility], [place], Phone - [phone], Director [facility] Notes/Report: Test(s) 126345-Egiqvysgfhrq, Total, LC/MS was developed and its performance characteristics determined by [facility]. It has not been cleared or approved by the Food and Drug Administration. Testosterone, Total, LC/MS 235.5 264.0 -916.0 ng/dL This [facility] LC/MS-MS method is currently certified by the CDC Hormone Standardization Program (HoSt). Adult male reference interval is based on a population of healthy nonobese males (BMI <30) between 19 and 39 years old. Hossein et.al. JCEM 2017,102;2960-8264. PMID: 80760850. Testosterone, Free 10.20 5.00-21.00 ng/dL % Free Testosterone 4.33 1.50-4.20 % Albumin/Creatinine Ratio,Uri ne-846553 Reviewed date:09/12/2024 05:59:01 PM Interpretation: Performing Lab:[facility], Phone - [phone], Director - [facility] Notes/Report: Test(s) 237486-Xuizqhyltqsn, Total, LC/MS was developed and its performance characteristics determined by [employer]. It has not been cleared or approved by the Food and Drug Administration. Creatinine, Urine 107.0 Not Estab. mg/dL Albumin, Urine 64.6 Not Estab. ug/mL Alb/Creat Ratio 60 0-29 mg/g creat Normal: 0 - 29 Moderately increased: 30 - 300 Severely increased: >300 B-Type Natriuretic Peptide-1 06853 Reviewed date:09/12/2024 05:59:01 PM Interpretation: Performing Lab:[facility] [place], [address] [place] [address], Phone - [phone], Director - [facility] Notes/Report: Test(s) 600833-Xazknebrwfdb, Total, LC/MS was developed and its performance characteristics determined by [facility]. It has not been cleared or approved by the Food and Drug Administration. B-Type Natriuretic Peptide 18.9 0.0-100.0 pg/m L Siemens ADVIA Centaur XP methodology Comp. Metabolic Panel (14)-3 17300 Reviewed date:09/12/2024 05:59:01 PM Interpretation: Performing Lab:[facility] [place] [address] [facility], Phone - [phone], Director - [facility] Notes/Report: Test(s) 444399-Mkgzaiwzedjl, Total, LC/MS was developed and its performance [...] 0-40 IU/L ALT (SGPT) 24 0-44 IU/L Urinalysis, Complete-021437 (Not yet reviewed by provider) Interpretation: Performing Lab:[facility], [address] [facility], Phone - [phone], Director - [facility] Notes/Report: Test(s) 803731-Ulnbmlbeiokk, Total, LC/MS; 824841-v-tlb995 was developed and its performance characteristics determined by [facility]. It has not been cleared or approved by the Food and Drug Administration. Test(s) 083121-Hdjrxxiixyiv, Total, LC/MS; 871305-r-nok757 was developed and its performance characteristics determined by [employer]. It has not been cleared or approved by the Food and Drug Administration. Specific [place] >=1.030 1.005-1.030 pH 5.5 5.0-7.5 Urine-Color Yellow [...] None seen /lpf Bacteria Many None seen/Few CBC With Differential/Platel et-361842 (Not yet reviewed by provider) Interpretation: [facility], [address] [place] [address], [place], Phone - [phone], Director - Jesus Notes/Report: Test(s) 203125-Zitfcamqehta, Total, LC/MS; 842791-q-sff537 was developed and its performance characteristics determined by [facility]. It has not been cleared or approved [...] Immature Grans (Abs) 0.0 0.0-0.1 x10E3/uL Prostate-Specific Ag-553214 (Not yet reviewed by provider) Interpretation: Performing [facility], [address] [facility], [place], Phone - [phone], Director - Jesus Notes/Report: Test(s) 110415-Pagvabmkbtub, Total, LC/MS; 204187-r-mox095 was developed and its performance characteristics determined by [facility]. It has not been cleared or approved by the Food and Drug Administration. Prostate Specific Ag 5.9 0.0-4.0 ng/mL Gretta ECLIA methodology. . According to the [place] U[employer] Association, Serum PSA should decrease and [...] the presence or absence of malignant disease. Vitamin D, 42-Vwumzcz-226310 (Not yet reviewed by provider) Interpretation: Performing Lab:[facility] [place], [address] [place] [address], [place], Phone - [phone], Director - [facility] Notes/Report: Test(s) 791477-Fxzterhawpwn, Total, LC/MS; 477344-o-uju218 was developed and its performance characteristics determined by [facility]. It has not been cleared or approved by the Food and Drug Administration. Vitamin D, 25-Hydroxy 57.1 30.0-100.0 ng/mL Vitamin D deficiency has been defined by the [place] of Medicine and an Endocrine Society practice guideline as a level of serum 25-OH vitamin D less than 20 ng/mL (1,2). The Endocrine Society went on to further define vitamin D insufficiency as a level between 21 and 29 ng/mL (2). 1. IOM ([place] of Medicine). 2010. Dietary reference intakes for calcium and D. [place]: The National Academies Press. 2. Darryl MF, Geo NC, Rebel TAMAYO, et al. Evaluation, treatment, and prevention of vitamin D deficiency: an Endocrine Society clinical practice guideline. JCEM. 2010; 96(7):1911-30. Albumin/Creatinine Ratio,Uri ne-495580 (Not yet reviewed by provider) Interpretation: Performing Lab:[facility] [place], [address] [place] [address], [place], Phone - [phone], Director - LAJade Notes/Report: Test(s) 744052-Gvnroawlzncp, Total, LC/MS; 957464-q-isc788 was developed and its performance characteristics determined by [facility]. It has not been cleared or approved by the Food and Drug Administration. Creatinine, Urine 112.1 Not Estab. mg/dL Albumin, Urine 45.3 Not Estab. ug/mL Alb/Creat Ratio 40 0-29 mg/g creat Normal: 0 - 29 Moderately increased: 30 - 300 Severely increased: >300 Comp. Metabolic Panel (14)-3 04848 (Not yet reviewed by provider) Interpretation: Performing Lab:[facility] [place], [address], [place], Phone - [phone], Director - Jesus Notes/Report: Test(s) 041639-Ldxansxyszfr, Total, LC/MS; 401153-o-wmk623 was developed and its performance characteristics determined by [facility]. It has not been cleared or approved [...] IU/L ALT (SGPT) 17 0-44 IU/L LP+Non-HDL Cholesterol-39802 5 (Not yet reviewed by provider) Interpretation: Performing Lab:[facility] [place], [address] [facility], [place], Phone - [phone], Director - Jesus Notes/Report: Test(s) 361003-Klenjlrzyjbm, Total, LC/MS; 774651-v-otf645 was developed and its performance characteristics determined by [facility]. It has not been cleared or approved by the Food and Drug Administration. Cholesterol, Total 99 100-199 mg/dL Triglycerides 140 0-149 mg/dL HDL Cholesterol 34 >39 mg/dL VLDL Cholesterol Kalyan 24 5-40 mg/dL LDL Chol Calc (NIH) 41 0-99 mg/dL Non-HDL Cholesterol 65 0-129 mg/dL HCV Antibody-915212 (Not yet reviewed by provider) Interpretation: Performing Lab:[facility] [place], [address] [facility], [place], Phone - [phone], Director - Jesus Notes/Report: Test(s) 914420-Lcbkbmspusdp, Total, LC/MS; 799489-f-dww483 was developed and its performance characteristics determined by [facility]. It has not been cleared or approved [...] yet reviewed by provider) Interpretation: Performing Lab:[facility] [place], [address], [place], Phone - [phone], Director - [facility] Notes/Report: [employer] Informed Consent Form [employer] Informed Consent Form 02 Please Fax back to [phone]. Many states require laboratories to have documentation [...] of the sample when testing is complete. [facility] did not receive any documentation of informed consent for above mentioned patient and ordered tests. Please check the statement applicable to this patient and sign below so that [facility] may release the results for this patient. . [] I authorize and confirm patient consent for the above mentioned genetic test(s). . [] I have provided appropriate informed consent for the above mentioned test(s) and documentation of this consent is maintained in the patient record. . . Health care provider signature ___Date . Printed name . Fax back to [facility] at [phone] . [facility] CULTURE URINE Reviewed date:09/14/2024 03:04:04 PM Interpretation: Performing Lab: Notes/Report: Culture, Urine No growth TISSUE EXAM (Not yet reviewe d by provider) Interpretation: Performing Lab: Notes/Report: Elevated PSA PSA: 6.1 (10/04/24) PSA-Free: 0.78 (10/04/24) [id number] Final Diagnosis A. Prostate, Left [place] Biopsy: Benign prostatic tissue B. Prostate, Left Lateral [place] Biopsy: Benign prostatic tissue with acute and chronic inflammation C. Prostate, Left [place] Biopsy: Benign prostatic tissue D. Prostate, Left Lateral [place] Biopsy: Benign prostatic tissue E. Prostate, Left [place] Biopsy: Benign prostatic tissue with acute and chronic inflammation F. Prostate, Left Lateral [place] Biopsy: Benign prostatic tissue G. Prostate, Right [place] Biopsy: Benign prostatic tissue H. Prostate, Right Lateral [place] Biopsy: Benign prostatic tissue I. Prostate, Right [place] Biopsy: Benign prostatic tissue J. Prostate, Right Lateral [place] Biopsy: Benign prostatic tissue K. Prostate, Right Middle [place] Biopsy: Benign prostatic tissue L. Prostate, Right Lateral Base Biopsy: Benign prostatic tissue Clinical Information Elevated PSA PSA: 6.1 (10/04/24) PSA-Free: 0.78 (10/04/24) [id number] Gross Description A. Prostate, Left [place] Biopsy: Received, properly labeled, are two H and E stained slides and two unstained slides. B. Prostate, Left Lat [place] Biopsy: Received, properly labeled, are two H [...] two unstained slides. G. Prostate, Right [place] Biopsy: Received, properly labeled, are two H and E stained slides and two unstained slides. H. Prostate, Right [place] Biopsy: Received, properly labeled, are two H [...] paraffin embedded. Technical pathology services provided by [facility] at [address] [place] [address] [address], [place] [address] (CLIA #[id number]/Nicole Green MD, Pbx Supervisor) Eye Exam Reviewed date:01/21/2025 04:01:53 PM Interpretation:01/18/2025 Performing Lab: Notes/Report: 01/18/2025 Reason For Referral Reason faxed Diagnosis 1 Obstructive sleep ap shubham (adult) (pediatric) (G47.33) Referral Organization [facility] Referring Provider First Name Shana Referring Provider Last Name Luis Fernando Referring Provider Speciality Internal edicine Referred Provider Casey Mckeon Referred Provider Specialty Sleep Medici ne General Notes Hamida REZA 03/31 04:17:31 PM >faxed, Hamida REZA 10/17/2024 03:16:05 PM >faxed record request Referral Priority Routine Reason faxed Diagnosis 1 Straining to void (R 39.16) Referral Organization [facility] Referring Provider First Name Shana Referring Provider Last Name Luis Fernando Referring Provider Speciality Internal edicine Referred Provider Ata Anne Referred Provider Specialty Urology General Notes Hamida REZA 09/2024 09:21:36 AM >faxed Referral Priority Routine Referral Appointment Date 09/13/2024 Medications Medication SIG (Take, Route, Frequency, Duration) Notes Start Date End Date Status Testosterone 1.62 % 1 pump to skin in e morning to shoulder, upper arms or abdomen Transdermal daily; Duration: 30 days 12/04/2024 Active Ozempic (2 MG/DOSE) 8 MG/3ML 2 mg Subcutaneous Once a Week; Duration: 90 days 08/08/2024 11/22/2025 Active Sacubitril-Valsartan 97-103 MG 1 tablet Orally Twice a day; Duration: 90 days 09/07/2024 11/24/2025 Active Tamsulosin HCl 0.4 MG 2 capsules once a day Orally Once a day; Duration: 90 days Active Zolpidem Tartrate 10 MG 1 tablet [...] High Dose Seasonal, Quadrivatent Unknown 12/10/2022 Administered *Qjmahpaxn-Bvzzbxq-Om gh Dose-65+ Unknown 12/06/2023 Administered *Influenza-Medicare-A S IM Intramuscular 12/12/2018 Administered *Pneumococcal polysaccharide PPV23 IM Intramuscular 09/22/2021 Administered *PREVNAR 20 Unknown 10/18/2024 Refused *Td (adult) preservative free Unknown 12/29/1993 Administered *Td (adult) preservative free Unknown 06/04/2010 Administered *Td (adult) preservative free IM Intramuscular 09/22/2020 Administered COVID COMIRNATY Pfizer Unknown 12/06/2023 Administered COVID COMIRNATY Pfizer Unknown 12/04/2024 Administered COVID Spikevax Moderna Unknown 12/10/2022 Administered COVID-19 Moderna BiValent Booster Unknown 12/07/2021 Administered VZEJY-52-Rqvzrnd Vaccine Unknown 05/26/2020 Administered FJXFH-89-Rwfszrp Vaccine Unknown 06/23/2020 Administered DNEWE-03-Oxmdsfz Vaccine Unknown 12/25/2020 Administered Influenza Unknown 11/29/2015 Administered Est at Pharmacy Influenza Unknown 11/06/2017 Administered Influenza Unknown 12/17/2019 Administered Influenza Unknown 12/03/2020 Administered Influenza, high dose seasonal Unknown 12/04/2024 Administered Influenza, seasonal, injectable (split), for 3 yrs and up IM Intramuscular 11/06/2017 Administered Mfd by Sanofi-[employer]ste[employer] Influenza-Afluria (IIV4) IM Intramuscular 11/29/2016 Administered Pneumococcal polysaccharide PCV 13 Unknown 09/23/2020 Administered Pneumococcal polysaccharide PPV23 Unknown 06/27/2007 Administered PVC21 Unknown 12/04/2024 Administered Social History Tobacco Use: Social History [...] W/U Status Risk Notes Problem 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, 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) Active confirmed Problem Thrombophilia (884159935) 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) Active confirmed Problem Thrombocytopenia (109509985) Thrombocytopenia, unspecified (D69.6) Active confirmed Problem Diabetic renal disease (930417954) Type 2 diabetes mellitus with diabetic chronic kidney disease (E11.22) Active confirmed Problem Testicular hypofunction (934898434) Testicular hypofunction (E29.1) Active confirmed Problem Vitamin D deficiency (27119276) Vitamin D deficiency, unspecified (E55.9) Active confirmed Problem Mixed hyperlipidemia (048092232) Mixed hyperlipidemia (E78.2) Active confirmed Problem Adjustment disorder with anxiety (27223047) Adjustment disorder with anxiety (F43.22) Active confirmed Problem Obstructive sleep apnea syndrome (02580765) Obstructive sleep apnea (adult) (pediatric) (G47.33) Active confirmed Problem Sensorineural hearing loss of bilateral ears (disorder) (861473079) Sensorineural hearing loss, bilateral (H90.3) Active confirmed Problem Hypertensive heart AND chronic kidney disease with congestive heart failure (79370232270307) Hypertensive heart and chronic kidney disease with heart failure and stage 1 through stage 4 chronic kidney disease, or unspecified chronic kidney disease (I13.0) Active confirmed Problem 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 (416181824685474) 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) Active confirmed Problem Dilated cardiomyopathy (884361485) Dilated cardiomyopathy (I42.0) Active confirmed Problem Paroxysmal atrial fibrillation (271321206) Paroxysmal atrial fibrillation (I48.0) Active confirmed Problem Chronic systolic heart failure (868011443) Chronic systolic (congestive) heart failure (I50.22) Active confirmed Problem Derangement of anterior horn of medial meniscus (3428663) Derangement of anterior horn of medial meniscus due to old tear or injury, left knee (M23.212) Active confirmed Problem Induratio penis plastica (3366210) Induration penis plastica (N48.6) Active confirmed Problem Long-term current use of anticoagulant (836722046) cosmetic maker (current) use of anticoagulants (Z79.01) Active confirmed Problem Automatic implantable cardiac defibrillator in situ (524518210) Presence of automatic (implantable) cardiac defibrillator (Z95.810) Active confirmed Problem Lower urinary tract symptoms due to benign prostatic hypertrophy (16028876323629) Benign prostatic hyperplasia with lower urinary tract symptoms (N40.1) Active confirmed Problem Chronic kidney disease stage 3A (disorder) (561389539) Chronic kidney disease, stage 3a (N18.31) Active confirmed Problem Chronic kidney disease stage 3B (disorder) (857549577) Chronic kidney disease, stage 3b (N18.32) Active confirmed Problem Personal history of adenomatous and serrated colon polyps (Z86.0101) Active confirmed Problem Age-related nuclear cataract of right eye (921216816334545) Age-related nuclear cataract, right eye (H25.11) Problem resolved confirmed Problem Age-related nuclear cataract of left eye (328078931796274) Age-related nuclear cataract, left eye (H25.12) Problem [...] Location Date Provider Diagnosis Shana Gould MD [address] [id number] 04/09/2024 Shana Gould Type 2 diabetes mellitus [...] thrombophilia D68.69 ; 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 I25.10 ; Mixed hyperlipidemia E78.2 ; Obstructive sleep apnea (adult) (pediatric) G47.33 ; Testicular hypofunction E29.1 and Vitamin D deficiency, unspecified E55.9 Shana Gould MD [address] [id number] 08/08/2024 Shana Gould Type 2 diabetes mellitus [...] thrombophilia D68.69 ; 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 I25.10 ; Mixed hyperlipidemia E78.2 ; Obstructive sleep apnea (adult) (pediatric) G47.33 ; Testicular hypofunction E29.1 ; Influenza due to other identified influenza virus with other respiratory manifestations J10.1 and Vitamin D deficiency, unspecified E55.9 Shana Gould MD [address] [id number] 10/18/2024 Shana Gould Encounter for genera l [...] thrombophilia D68.69 ; 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 I25.10 ; [...] carried out because of patient refusal Z28.21 Shnaa Gould MD [address] [id number] 09/07/2024 Shana Gould MD [address] [id number] 11/23/2024 Shana Gould Testicular hypofunct ion E29.1 Shana Gould MD [address] [id number] 11/30/2024 Shana Gould Testicular hypofunct ion E29.1 Shana Gould MD [address] [id number] 11/23/2024 Shana Gould Type 2 diabetes mellitus with diabetic chronic kidney disease E11.22 and Testicular hypofunction E29.1 Shana Gould MD [address] [id number] 04/20/2024 Edwige Gould MD [address] [id number] 04/20/2024 Edwige Gould MD [address] [id number] 05/15/2024 Shana Gould MD [address] [id number] 05/19/2024 Shana Gould Testicular hypofunct ion E29.1 Shana Gould MD [address] [id number] 05/23/2024 Shana Gould MD PC [address] [place], [place] [id number] 06/07/2024 Shana Gould MD PC [address] [place], [place] [id number] 06/08/2024 Shana Gould MD PC [address] [place], [place] [id number] 07/11/2024 Shana Gould MD PC [address] [place] [id number] 07/18/2024 Shana Gould Type 2 diabetes mellitus with diabetic chronic kidney disease E11.22 Shana Gould MD PC [address] [place], [place] [id number] 08/28/2024 Shana Gould MD PC [address] [place] [address] [id number] 08/30/2024 Shana Gould Straining to void R39.16 and Benign prostatic hyperplasia with lower urinary tract symptoms N40.1 Shana Gould MD PC [address] [place] [address] [id number] 09/03/2024 Shana Gould MD PC [address] [place] [address] [id number] 09/04/2024 Shana Gould MD PC [address] [place] [address] [id number] 09/10/2024 Shana Gould MD PC [address] [place] [address] [id number] 09/30/2024 Shana Gould MD PC [address] [place] [address] [id number] 10/18/2024 Shana Gould Testicular hypofunct ion E29.1 Shana Gould MD PC [address] [place] [address] [id number] 11/16/2024 Shana Gould Testicular hypofunct ion E29.1 Shana Gould MD PC [address] [place] [address] [id number] 11/16/2024 Shana Gould Type 2 diabetes mellitus with diabetic chronic kidney disease E11.22 Shana Gould MD PC [address] [place] [address] [id number] 11/22/2024 Shana Gould Testicular hypofunct ion E29.1 Shana Gould MD PC [address] [place] [address] [id number] 11/27/2024 Shana Gould MD [address] [facility] [address] [place] [address] [id number] 11/27/2024 Shana Gould Testicular hypofunct ion E29.1 Shana Guold MD [address] [place] [address] [id number] 11/28/2024 Shana Gould MD [address] [place] [address] [id number] 11/29/2024 Shana Gould Testicular hypofunct ion E29.1 Shana Gould MD [address] [place] [address] [id number] 12/03/2024 Shana Gould MD [address] [facility] [address] [place] [address] [id number] 12/19/2024 Shana Gould MD [address] [id number] 12/19/2024 Shana Gould MD [address] [id number] 01/13/2025 Shana Gould Assessments Encounter Date Diagnosis [...] atrial fibrillation 04/09/2024 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 (ICD-10 - I25.10) Stable without any progressive symptoms. 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 (ICD-10 - [...] 04/10/2018 COMPLETE URINALYSIS 09/22/2020 COMPREHENSIVE METABOLIC PANEL 04/11/2019 COMPREHENSIVE METABOLIC PANEL 09/22/2020 COMPREHENSIVE METABOLIC PANEL 08/08/2018 COMPREHENSIVE METABOLIC PANEL 04/10/2018 COMPREHENSIVE METABOLIC PANEL 09/20/2018 COMPREHENSIVE METABOLIC PANEL 08/13/2018 COMPREHENSIVE METABOLIC PANEL 04/15/2022 CREAT CLEARANCE 09/20/2018 FREE T4 09/20/2018 FREE TESTOSTERONE 09/20/2018 FREE TESTOSTERONE 09/22/2020 HEMOGLOBIN A1C,DIAGNOSTIC 04/10/2018 HEMOGLOBIN A1C,DIAGNOSTIC 04/11/2019 LIPID PANEL W REFLEX TO DLDL 09/22/2020 LIPID PANEL W REFLEX TO DLDL 04/11/2019 MAGNESIUM 04/15/2022 PROBNP 08/13/2018 PROBNP 09/22/2020 PROBNP 04/11/2019 PROBNP 08/08/2018 PROBNP 09/20/2018 PROBNP 04/10/2018 PSA 09/22/2020 TESTOSTERONE 09/22/2020 TESTOSTERONE 02/13/2016 TESTOSTERONE 04/06/2017 TSH 09/20/2018 UREA CLEARANCE 09/20/2018 URINARY MICROALBUMIN 04/10/2018 URINARY MICROALBUMIN 09/22/2020 Xray: Knee Left (Standard, 4 Views) 07/2016 VITAMIN D, 25-HYDROXY 09/22/2021 VITAMIN D, 25-HYDROXY 04/13/2022 VITAMIN D, 25-HYDROXY 01/26/2021 VITAMIN D, 25-HYDROXY 05/25/2021 ANTI-HEPATITIS C W/RFLX HCV QNT 09/23/19 22 MMR (MEASLES, MUMPS, RUBELLA) IGG TITER 08/08/2018 Hemoglobin Q2m-118882 10/18/2024 Vitamin X61-415618 10/18/2024 Immunofixation, Serum-311942 10/18/2024 Folate (Folic Acid), Serum-924399 2024 Urinalysis, Complete-676378 10/18/2024 TSH-283247 10/18/2024 CBC With Differential/Platelet-163518 Prostate-Specific Ag-517350 10/18/2024 Testosterone, F Eqlib+T LC/MS-030245 Vitamin D, 57-Sygdogu-335287 10/18/2024 Albumin/Creatinine Ratio,Urine-671440 B-Type Natriuretic Peptide-442099 2024 Comp. Metabolic Panel (14)-860651 2024 LP+Non-HDL Cholesterol-166081 10/18/2024 APOE Alzheimer's Risk-043351 10/18/2024 Phosphatidylethanol (PEth)-048411 2024 HCV Antibody-705018 10/18/2024 Esoterix Informed Consent Form 5 Phosphorylated Tau 217 (pTau-217) 2024 TISSUE EXAM 11/12/2024 Future Test Test Name Order Date COMPLETE URINALYSIS 10/16/2018 COMPREHENSIVE METABOLIC PANEL 10/16/2018 PROBNP 10/16/2018 Next Appt Details Provider Name:Shana Gould , 02/14/2025 01:30:00 PM, [address] [place] [address], [place], [place], [id number], Provider Name:Shana oGuld , 10/29/2025 01:30:00 PM, [address] [facility], [place] [address], [place], [place], [id number], Insurance Providers Payer Name Payer Address Payer Phone Subscriber Number Group Number Insured Name Patient Relationship to Insured Coverage Start Date Coverage End Date Critical access hospital [address] [place] [address] [id number] Bogdan Curtis Self - patient is the insured 0 [place]ICARE [address] [place] [phone] [id number] Bogdan Curtis Self - patient is the insured 2 Medical (General) History Medical History History ICD Code Brachial neuritis or radiculitis NOS Dilated cardiomyopathy I42.0 Chronic systolic (congestive) heart fail ure I50.22 Chronic kidney disease, stage 2 (mild) N 18.2 Obstructive sleep apnea (adult) (pediatr ic) G47.33 Testicular hypofunction E29.1 Atherosclerotic heart diseas e of iliamna coronary artery without angina pectoris I25.10 Paroxysmal atrial fibrillation I48.0 Type 2 diabetes mellitus with diabetic c hronic kidney disease E11.22 USP (current) use of anticoagulant s Z79.01 Derangement [...]
--- OUTSIDE RECORDS SUMMARY | 2025-02-13 19:45 | XMS_ITS | Encounter Summary ---
Author Organization [facility] Address [address] [place] [address] Phone Care Team Providers Care Retail Pharmacy Manager Name Role Phone Kassandra Gould MD Primary Care Provider [phone] Joel Haddad MD Unavailable [phone] Encounter Details Date Type Department Care Team (Late Contact Info) Description 01/14/2023 Procedure Pass Debra Crane Non-Invasive Cardiology [address] [place] [address] Social History Tobacco Use Types Packs/Day Years [...] 12:30 PM EDT Office Visit Debra Crane [facility] [address], [address] [place] [address] Yulisa Meier, DNP [address], [address] [place] [address] [email or web address] documented as of this encounter Visit Diagnoses Not on filedocumented in this encounter Care Teams Retail Pharmacy Manager Relationship Specialty Start Date End Date Kassandra Gould MD [address] [address] [email or web address] PCP - General 12/16/16 Joel Haddad MD [address] [address] [email or web address] Historical LMR Provider 12/16/16 documented as of this encounter Additional Source Comments The information contained in this document represents components of the legal health record. It is not the complete legal health record.[facility]
--- OUTSIDE RECORDS SUMMARY | 2025-02-13 19:45 | XMS_ITS | Encounter Summary ---
Author Organization [facility] Address [address] [place] [address] Care Team Providers Care Front Desk Worker Name Role Phone Physician, Pcp Unknown Primary Care Provider Venessa vailable Encounter Details Date Type Department Care Team (Late st Contact Info) Description 09/13/2024 Lab Requisition [facility] - Main Lab [address] [facility] [place] [address] Jitendra Padron MD [address] [place] [address] Urinary tract infection, site not specified; Dysuria Social History Tobacco Use Types Packs/Day Years [...] Procedure Name Priority Date/Time Associated Diagnosis Comments CULTURE URINE Routine 09/13/2024 3:40 PM EDT Urinary tract infection, site not specified Dysuria documented in this encounter Results * Culture urine (09/13/2024 3:40 PM EDT) Culture, Urine No growth 09/14/2024 2:31 PM EDT [facility]) [facility] Urine Urine specimen obtained by clean catch procedure / Unknown 09/13/2024 3:40 PM EDT 09/13/2024 5:40 PM EDT us Jitendra Padron MD LAB MICROBIOLOGY - GENERAL ORD ERABLES Final Result [facility] [address] [place] [address], documented in this encounter Visit Diagnoses Diagnosis Urinary tract infection, site not specified Dysuria documented in this encounter Care Teams Front Desk Worker Relationship Specialty Start Date End Date Physician, Pcp Unknown PCP - General 09/20/24 documented as of this encounter
--- OUTSIDE RECORDS SUMMARY | 2025-02-13 19:45 | XMS_ITS | Encounter Summary ---
Author Organization [facility] Address [address] [place] [address] Phone Care Team Providers Care Youth Accommodation Support Worker Name Role Phone Kassandra Gould MD Primary Care Provider [phone] Joel Haddad MD Unavailable [phone] Lien Rodriguez Unavailable [email or web address] Kassandra Gould MD Unavailable [phone] Axel Salcido MD Unavailable [phone] Encounter Details Date Type Department Care Team (Latest Contact Info) Description 02/23/2018 Ancillary Orders Debra Crane Non-Invasive Cardiology [address] [place] [address] [place] [address] Joel Haddad MD [address] [place] [place] [address] [email or web address] Ischemic cardiomyopathy Social History Tobacco Use [...] 12:30 PM EDT Office Visit Debra Crane [facility] [address], [address] [place] [address] Yulisa Meier, DONTAE [address] [place] [address], [address] [address] [email or web address] documented as of this encounter Visit Diagnoses Diagnosis Ischemic cardiomyopathy Other specified forms of chronic ischemic heart disease documented in this encounter Care Teams Youth Accommodation Support Worker Relationship Specialty Start Date End Date Kassandra Gould MD [address] [address] [email or web address] PCP - General 12/16/16 Jole Haddad MD [address] [place] [address] [email or web address] Historical LMR Provider 12/16/16 Lien Rodriguez PA Historical LMR Provider 12/16/16 03/07/21 Kassandra Gould MD [address] [address] [email or web address] Historical LMR Provider 12/16/16 Axel Salcido MD [address] [place] [address], [address] [address] [email or web address] Historical LMR Provider 12/16/16 03/07/21 documented as of this encounter Additional Source Comments The information contained in this document represents components of the legal health record. It is not the complete legal health record.[facility]
--- OUTSIDE RECORDS SUMMARY | 2025-02-13 19:45 | XMS_ITS | Encounter Summary ---
Author Organization [facility] Address [address] [facility] [address] [place] [address] Phone Care Team Providers Care Delivery Merchandiser Name Role Phone Kassandra Gould MD Primary Care Provider [phone] Joel Haddad MD Unavailable [phone] Encounter Details Date Type Department Care Team (Late Contact Info) Description 04/29/2021 Procedure Pass Richardson Bowman Non-Invasive Cardiology [address] [place] [address] Social History Tobacco Use Types Packs/Day Years [...] 12:30 PM EDT Office Visit Debra Crane [facility] [address] [facility] 3rd Floor, [address] [place], [place] [id number] Yulisa Meier DNP 22 [facility], [address] [address] [email or web address] documented as of this encounter Visit Diagnoses Not on filedocumented in this encounter Care Teams Delivery Merchandiser Relationship Specialty Start Date End Date Kassandra Gould MD [address] [address] [email or web address] PCP - General 12/16/16 Joel Haddad MD [address] [address] [email or web address] Historical LMR Provider 12/16/16 documented as of this encounter Additional Source Comments The information contained in this document represents components of the legal health record. It is not the complete legal health record.[facility]
--- OUTSIDE RECORDS SUMMARY | 2025-02-13 19:45 | XMS_ITS | Encounter Summary ---
Author Organization [facility] Address [address] [place] [address] Phone Care Team Providers Care Customer Service Consultant Name Role Phone Kassandra Gould MD Primary Care Provider [phone] Joel Haddad MD Unavailable [phone] Lien Rodriguez Unavailable [email or web address] Kassandra Gould MD Unavailable [phone] Axel Salcido MD Unavailable [phone] Encounter Details Date Type Department Care Team (Late Contact Info) Description 08/08/2017 Ancillary Orders [facility] [address] [place] [address] Joel Haddad MD [address] [place] [address] [email or web address] Social History Tobacco Use Types Packs/Day Years [...] 06/04/2025 12:30 PM EDT Office Visit [facility] 22 [facility] 3rd Floor, [address] [address] Yulisa Meier, DONTAE 22 [facility], [address] [address] documented as of this encounter Visit Diagnoses Not on filedocumented in this encounter Care Teams Customer Service Consultant Relationship Specialty Start Date End Date Kassandra Gould MD [address] [address] PCP - General 12/16/16 Joel Haddad MD [address] [place] [address] [email or web address] Historical LMR Provider 12/16/16 Lien Rodriguez PA Historical LMR Provider 12/16/16 03/07/21 Kassandra Gould MD [address] [address] Historical LMR Provider 12/16/16 Axel Salcido MD [address] [place] [address], [address] [address] [email or web address] Historical LMR Provider 12/16/16 03/07/21 documented as of this encounter Additional Source Comments The information contained in this document represents components of the legal health record. It is not the complete legal health record.[facility]
--- OUTSIDE RECORDS SUMMARY | 2025-02-13 19:45 | XMS_ITS ---
Author Name [facility] Organization Unknown History of Medication Use Medication Directions Dispensed Refills Start Date End Date [facility] Kenalog 40 mg/mL suspension for injection Take 1 mL by injection route. 08/13/2022 active lidocaine (PF) 100 mg/5 mL (2 %) injection syringe Take 4 mL by injection route. 08/13/2022 active Marcaine (PF) 0.5 % (5 mg/mL) injection solution Take 4 mL by injection route. 08/13/2022 active state pilot covid-19 at-home test kit 3 active lidocaine (PF) 100 mg/5 mL (2 %) injection syringe active Marcaine (PF) 0.5 % (5 mg/mL) injection solution active Kenalog 40 mg/mL suspension for injection active carvedilol 12.5 mg tablet TAKE 1 TABLET BY MOUTH TWICE A DAY WITH FOOD active Eliquis 5 mg tablet TAKE 1 TABLET BY MOUTH TWICE A DAY active Entresto 97 mg-103 mg tablet TAKE 1 TABLET BY MOUTH TWICE A DAY active Farxiga 10 mg tablet TAKE 1 TABLET BY MOUTH EVERY DAY active ketoconazole 2 % topical cream APPLY TO AFFECTED AREA TWICE A DAY active metformin ER 500 mg tablet,extended release 24 hr TAKE 1 TABLET BY MOUTH ONCE DAILY WITH EVENING MEAL active metformin ER 750 mg tablet,extended release 24 hr TAKE 1 TABLET BY MOUTH EVERY DAY FOR 90 DAYS active pentoxifylline ER 400 mg tablet,extended release active pregabalin 100 mg capsule active rosuvastatin 40 mg tablet active tamsulosin 0.4 mg capsule active testosterone 20.25 mg/1.25 gram per pump act.(1.62 %) transdermal gel APPLY 4 PUMPS TO AFFECTED ON SKIN IN THE MORNING ONCE A DAY active Trulicity 0.75 mg/0.5 mL subcutaneous pen injector INSERT 1 PEN (0.75MG) SUBCUTANEOUSLY ONCE A WEEK DIRECTED active Trulicity 1.5 mg/0.5 mL subcutaneous pen injector INJECT 1 PEN (0.5 ML) SUBCUTANEOUSLY ONCE A WEEK 90 DAYS active Vitamin D3 25 mcg (1,000 unit) tablet TAKE 1 TABLET BY MOUTH EVERY DAY FOR 90 DAYS active zolpidem 10 mg tablet TAKE 1 TABLET BY MOUTH EVERY DAY AT BEDTIME NEEDED active Problems Problem Status Onset Date Problem Type Date of Resoluti on Source Osteoarthritis of right knee joint active 2022-08-13 ProblemAct [facility] Osteoarthritis of left knee joint active 2022-08-13 ProblemAct [facility] Encounters Encounter Type Encounter Reason Primary Diagnosis Location Date Ambulatory [facility] 11/12/2022 [facility] 10/06/2022 [facility]ulatory [facility] 09/29/2022 Ambulatory [facility] [place] 09/29/2022 Ambulatory [facility] [place] 08[facility]13/2022 Ambulatory [facility] [place] 08/11/2022
--- OUTSIDE RECORDS SUMMARY | 2025-02-13 19:45 | XMS_ITS | Encounter Summary ---
Author Organization [facility] Address [address] [place] [phone] Phone Care Team Providers Care Corporate Communications Specialist Name Role Phone Kassandra Gould MD Primary Care Provider [phone] Joel Haddad MD Unavailable [phone] Lien Rodriguez Unavailable [email or web address] Kassandra Gould MD Unavailable [phone] Axel Salcido MD Unavailable [phone] Encounter Details Date Type Department Care Team (Late Contact Info) Description 02/23/2018 Ancillary Orders [facility] [address] [place] [address] Joel Haddad MD [address] [place] [address] [email or web address] Social History Tobacco Use Types Packs/Day [...] 06/04/2025 12:30 PM EDT Office Visit [facility] 22 [facility] 3rd Floor, [address] [address] Yulisa Meier, DONTAE 22 [facility], [address] [address] [email or web address] documented as of this encounter Visit Diagnoses Not on filedocumented in this encounter Care Teams Corporate Communications Specialist Relationship Specialty Start Date End Date Kassandra Gould MD [address] [address] [email or web address] PCP - General 12/16/16 Joel Haddad MD [address] [place] [address] [email or web address] Historical LMR Provider 12/16/16 Lien Rodriguez PA Historical LMR Provider 12/16/16 03/07/21 Kassandra Gould MD [address] [address] [email or web address] Historical LMR Provider 12/16/16 Axel Salcido MD [address] [place] [address], [address] [address] [email or web address] Historical LMR Provider 12/16/16 03/07/21 documented as of this encounter Additional Source Comments The information contained in this document represents components of the legal health record. It is not the complete legal health record.[facility]
--- OUTSIDE RECORDS SUMMARY | 2025-02-13 19:45 | XMS_ITS | Clinical Summary ---
Author Organization [address] Address [address] [place] [phone] Phone Care Team Providers Care Pack Master Name Role Phone Physician, Pcp Unknown Primary Care Provider Venessa vailable Surgical History Surgery Date Site/Laterality Comments HERNIA [...] on file Sexual Orientation Not on file Plan of Treatment Health Maintenance Due Date Last Done Comments Colorectal Cancer Screening: Colonoscopy 1955 DTaP,Tdap,and Td Vaccines (1 - Tdap) 06/05/1974 Pneumococcal Vaccine: 50+ Years (1 of 1 - PCV) 06/05/2005 RSV Immunization Adult Patients (1 - Risk 50-74 years 1-dose series) 06/05/2005 Zoster Vaccines (1 of 2) 06/05/2005 Cholesterol Screening (Lipid Panel) 02/04/2022 Falls Risk Assessment 02/04/2022 Hepatitis C Screening 02/04/2022 Medicare Annual Wellness Visit 02/04/2022 Social Influencers of Health Screening 02/04/2022 Depression Screening 02/29/2024 COVID-19 Vaccine (2 - 2024-2 6 season) 2024 05/26/2020 Influenza Vaccine (#1) 2024 8, 12/04/2015 Abdominal Aortic Aneurysm (AAA) Screen Completed 10/02/2020 HIB Vaccines Aged Out [...] to complete this topic RSV Immunization Patients Under 20 months Aged Out No longer eligible [...] PM EDT Narrative 10/02/2020 2:00 PM EDT [facility] Diagnostic Imaging Department [address] [place] [address] Patient: LIZAMABOGDAN D.O.B./Age/Sex: 1955 - 65 - M Unit#: [id number] Location/Status: [facility] CLI Mnemonic/Ordering Site: AAASCRSTUD/SPUS Ordering Physician: SHANA [...] of abdominal aortic aneurysm. [id number] Dictating Physician: MARISABEL SILVA MD Electronically Signed by: MARISABEL SILVA MD Dic Date/Time: 10/02/20 1359 Sign date/Time: 10/02/20 1400 Procedure Note Marisabel Silva MD - 02/24/2022 [facility] Diagnostic Imaging Department [address] [place] [address] Patient: BOGDAN LIZAMA Dennis /Age/Sex: 1955 - 65 - M Unit#: [id number] Location/Status: SPDIUS/REG CLI Mnemonic/Ordering Site: AAASCRSTUD/SPUS Ordering [...] of abdominal aortic aneurysm. [id number] Dictating Physician: MARISABEL SILVA MD Electronically Signed by: MARISABEL SILVA MD Dic Date/Time: 10/02/20 1359 Sign date/Time: 10/02/20 1400 Shana oLrenzo MD [facility] PROCEDURES Final Result from Last 3 Months or Most Recently Relevant to Health Maintenance Insurance MEDICARE [facility] Care Teams Pack Master Relationship Specialty Start Date End Date Physician, Pcp Unknown PCP - General 09/20/24
--- OUTSIDE RECORDS SUMMARY | 2025-02-13 19:45 | XMS_ITS | Encounter Summary ---
Author Organization [facility] Address [address] [place] [address] Phone Care Team Providers Care Adjunct Instructor Chemistry Name Role Phone Kassandra Gould MD Primary Care Provider [phone] Joel Haddad MD Unavailable [phone] Encounter Details Date Type Department Care Team (Late st Contact Info) Description 08/04/2021 Ancillary Orders [facility] [address], [address] [place] [address] Theo Xavier MD [address] [place] [phone] [email or web address] Social History Tobacco Use Types Packs/Day Years [...] Description 06/04/2025 12:30 PM EDT Office Visit [facility] [address], [address] [place] [address] Yulisa Meier, DONTAE 22 [facility], [address] [place], [place] [id number] [email or web address] documented as of this encounter Visit Diagnoses Not on filedocumented in this encounter Care Teams Adjunct Instructor Chemistry Relationship Specialty Start Date End Date Kassandra Gould MD [address] [address] [email or web address] PCP - General 12/16/16 Joel Haddad MD [address] [address] [email or web address] Historical LMR Provider 12/16/16 documented as of this encounter Additional Source Comments The information contained in this document represents components of the legal health record. It is not the complete legal health record.[facility]
== END 2025-02-13 15:17 | disposition home or self-care (01) ==
LOC: HO.PMC 14:50
PROVIDERS: Visit Provider Anesthesiology
DX: M46.1 Sacroiliitis, not elsewhere classified (principal); M53.3 Sacrococcygeal disorders, not elsewhere classified; M47.816 Spondylosis without myelopathy or radiculopathy, lumbar region
CPT/HCPCS: 99203